=== PATIENT | female | born 1930 | race Caucasian/White ===

== ENCOUNTER 2016-06-18 10:04 | Inpatient (IN) | payer OTHER, BC ==
--- NOTE | 2016-06-18 10:12 | PDOC ---
History of Present Illness <Brandon Mcdaniel - Last Filed: 06/18/16 12:18> - History of Present Illness Initial Comments: 06/18/16 10:25 The patient is a 86 year old female, with a significant past medical history of CHF, hypertension, mitral valve prolapse, hypothyroidism, low kidney function, and hyperlipidemia, who presents to the emergency department with shortness of breath today after being discharged from [facility] 2 days ago. As per ems, the patient was given one sublingual nitroglycerin and another dose in her arm before she perked up. The patients son reports the patient has about 1L of fluid removed from her lung about 2 weeks ago.The patient's son also reports his mother has a shunt in place to which she follows a neurosurgeon for at [place]. She denies chest pain, headache and dizziness. She denies fever, chills, nausea , vomit, diarrhea and constipation. She denies dysuria, frequency, urgency and hematuria. Allergies: penicillin Past surgical history: hysterectomy Social history: denies toxic habits PCP - Dr. Arelis Cisneros ([place]) Manager Grocery: Dr. Cody Reveles ([phone]) <Mayi Tee - Last Filed: 06/18/16 13:44> - General Stated Complaint: PULMONARY EDEMA Past History <Brandon Mcdaniel - Last Filed: 06/18/16 12:18> <Mayi Tee - Last Filed: 06/18/16 13:44> - Past Medical History Allergies/Adverse Reactions: Allergies Allergy/AdvReac Type Severity Reaction Status Date / Time Penicillins Allergy Unknown Verified 06/18/16 10:12 Home Medications: Ambulatory Orders Amlodipine Besylate [Norvasc -] 5 mg PO BID 06/18/16 Aspirin [ASA -] 81 mg PO WEEKLY 06/18/16 Atorvastatin Ca [Lipitor] 10 mg PO HS 06/18/16 Carvedilol [Coreg] 12.5 mg PO BID 06/18/16 Enalapril Maleate [Vasotec] 20 mg PO BID 06/18/16 Hydrochlorothiazide 25 mg PO Q8H 06/18/16 Levothyroxine [Synthroid -] 25 mcg PO DAILY 06/18/16 Sertraline HCl [Zoloft] 50 mg PO HS 06/18/16 Review of Systems - Review of Systems Able to Perform ROS?: Yes Comments:: 06/18/16 10:29 CONSTITUTIONAL: Absent: fever, chills, diaphoresis, generalized weakness, malaise, loss of appetite HEENT: Absent: rhinorrhea, nasal congestion, throat pain, throat swelling, difficulty swallowing, mouth swelling, ear pain, eye pain, visual Changes CARDIOVASCULAR: Absent: chest pain, syncope, palpitations, irregular heart rate, lightheadedness , peripheral edema RESPIRATORY: (+) shortness of breath, dyspnea with exertion. Absent: cough, orthopnea, wheezing, stridor, hemoptysis GASTROINTESTINAL: Absent: abdominal pain, abdominal distension, nausea, vomiting, diarrhea, constipation, melena, hematochezia GENITOURINARY: Absent: dysuria, frequency, urgency, hesitancy, hematuria, flank pain, genital pain MUSCULOSKELETAL: Absent: myalgia, arthralgia, joint swelling SKIN: Absent: rash, itching, pallor HEMATOLOGIC/IMMUNOLOGIC: Absent: easy bleeding, easy bruising, lymphadenopathy, frequent infections ENDOCRINE: Absent: unexplained weight gain, unexplained weight loss, heat intolerance, cold intolerance NEUROLOGIC: Absent: headache, focal weakness or paresthesias, dizziness, unsteady gait, seizure, mental status changes, bladder or bowel incontinence PSYCHIATRIC: Absent: anxiety, depression, suicidal or homicidal ideation, hallucinations. <Mayi Tee - Last Filed: 06/18/16 13:44> *Physical Exam - Vital Signs Last Vital Signs Temp Pulse Resp BP Pulse Ox 97.6 F 74 18 226/108 95 06/18/16 10:08 06/18/16 10:17 06/18/16 10:08 06/18/16 10:08 06/18/16 10:17 - Physical Exam Comments: 06/18/16 10:29 GENERAL: (+) Somnolent. Well developed, well nourished. Awake and alert. HEENT: Normocephalic, atraumatic. PERRLA, EOMI. No conjunctival pallor. Sclera are non- icteric. Moist mucous membranes. Oropharynx is clear. NECK: Supple. Full ROM. No JVD. Carotid pulses 2+ and symmetric, without bruits. No thyromegaly. No lymphadenopathy. CARDIOVASCULAR: Regular rate and rhythm. No murmurs, rubs, or gallops. Distal pulses are 2+ and symmetric. PULMONARY: (+) Respiratory distress. Decreased breath sounds bilaterally. No wheezing, rales or rhonchi. ABDOMINAL: Soft. Non-tender. Non-distended. No rebound or guarding. No organomegaly. Normoactive bowel sounds. MUSCULOSKELETAL Normal range of motion at all joints. No bony deformities or tenderness. No CVA tenderness. EXTREMITIES: No cyanosis. No clubbing. No edema. No calf tenderness. SKIN: Warm and dry. Normal capillary refill. No rashes. No jaundice. NEUROLOGICAL: Alert, awake, appropriate. Cranial nerves 2-12 intact. Normoreflexic in the upper and lower extremities. Normal speech. Toes are down-going bilaterally. <Mayi Tee - Last Filed: 06/18/16 13:44> Heart Score/ECG Review - ECG Intrepretation Comment:: 06/18/16 10:41 ECG was read by Dr. Mcdaniel at 10:15 Impression: Sinus rhythm with 1st degree AV block. Nonspecific Twave abnormality. Vent. Rate: 76 bpm MD Interval: 250 ms QTc: 418 ms <Mayi Tee - Last Filed: 06/18/16 13:44> ED Treatment Course - LABORATORY CBC & Chemistry Diagram: 06/18/16 10:25 06/18/16 10:25 <Brandon Mcdaniel - Last Filed: 06/18/16 12:18> - LABORATORY CBC & Chemistry Diagram: 06/18/16 10:25 06/18/16 10:25 - RADIOLOGY Radiograph Interpretation: 06/18/16 13:42 CXR was read by Dr. Montanez at 12:21 Impression: bilateral pulmonary and pleural changes <Mayi Tee - Last Filed: 06/18/16 13:44> *DC/Admit/Observation/Transfer - Discharge Dispostion Admit: Yes <Brandon Mcdaniel - Last Filed: 06/18/16 12:18> - Attestations Scribe Attestion: 06/18/16 10:31 Documentation prepared by Mayi Tee, acting as medical art therapist for Brandon Mcdaniel MD, <Mayi Tee - Last Filed: 06/18/16 13:44> Diagnosis at time of Disposition: Lingular pneumonia, CHF (congestive heart failure), Acute renal failure - Discharge Dispostion Condition at time of disposition: Fair - Referrals
[2016-06-18 10:21] VITALS: BMI 19.7
[2016-06-18] MEDS ORDERED: AZTREONAM 1 GM in DEXTROSE 5%-WATER - 50 ML IVPB ONE (10:28)
[2016-06-18] MEDS ORDERED: niCARdipine HCL 25 MG/10 ML AMPUL IVPB ONE ×2 (10:33→11:07)
[2016-06-18] MEDS ORDERED: FUROSEMIDE 40 MG/4 ML INJECTABLE VIAL IVPUSH ONE (10:36)
[2016-06-18 10:41] LABS: BASOPHIL 0.5 % (0-2.0); EOSINOPHIL 0.6 % (0-4.5); MCH 27.6 pg (25.7-33.7); MCHC 32.5 g/dl (32.0-36.0); MEAN PLT VOLUME 8.2 fl (7.5-11.1); NEUTROPHILS 84.3 % (42.8-82.8); PLATELET COUNT 218 K/MM3 (134-434); RDW 15.7 % (11.6-15.6); WHITE BLOOD COUNT 8.8 K/mm3 (4.0-10.0)
[2016-06-18] MEDS ORDERED: FUROSEMIDE 40 MG/4 ML INJECTABLE VIAL ONE (11:08)
[2016-06-18 11:09] LABS: BILIRUBIN,TOTAL 0.5 mg/dL (0.2-1.0); CALCIUM 8.9 mg/dL (8.5-10.1); CREATININE 5.6 mg/dL (0.55-1.02); TOT PROT 6.9 g/dl (6.4-8.2)
[2016-06-18 11:12] LABS: TROPONIN I 0.07 ng/ml (0.00-0.05)
[2016-06-18] MEDS ORDERED: SODIUM POLYSTYRENE SULFONATE 15 GM/60 ML BOTTLE PO ONE (11:37)
[2016-06-18] MEDS ORDERED: NICARDIPINE 25 MG in DEXTROSE 5%-WATER - 240 ML IVPB SCH (11:45)
--- NOTE | 2016-06-18 12:50 | HP ---
CHIEF COMPLAINT: Shortness of breath PCP: Dr. Arelis Cisneros ([place]) Track Repairer: Dr. 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 She initially presented to [facility] for lower extremity edema, L>R, and at that time was noted to have a BP of 220 systolic. Records from that stay were obtained and reviewed and were notable for: -Duplex LE u/s: no DVT -BNP 1069 -CXR: Moderate left and right pleural effusions -Underwent left thoracentesis; 1L of fluid aspirated -Echo: Normal LV size and function; concentric left ventricular hypertrophy, E/ A reversal consisted with decreased LV diastolic compliance. -Creatinine went from 2.6 on presentation to 5.2; this was attributed to over- diuresis The patient returns to the ED today complaining of shortness of breath at rest and cough productive of scant clear sputum. She was given SL ntg by EMS prior to arrival in the ED and states that this improved her shortness of breath. She denies chest pain, fevers/chills, or any other symptoms. ER course was notable for: (1) EKG: (2) CXR: Cardiomegaly, pulmonary vascular congestion, bilateral pleural effusions (3) BUN/Cr 127/5.6 (4) K 5.4, given kayexelate (5) Bicarb 14 (6) BNP 15,546 (7) Troponin 0.07 Recent Travel: None Social History: Smoking: Never smoker Alcohol: None Family History: No family history of kidney disease Allergies Penicillins Allergy (Unknown, Verified 06/18/16 10:12) HOME MEDICATIONS: Medication Instructions Recorded Amlodipine Besylate [Norvasc -] 5 mg PO BID 06/18/16 Aspirin [ASA -] 81 mg PO WEEKLY 06/18/16 Atorvastatin Ca [Lipitor] 10 mg PO HS 06/18/16 Carvedilol [Coreg] 12.5 mg PO BID 06/18/16 Enalapril Maleate [Vasotec] 20 mg PO BID 06/18/16 Hydrochlorothiazide 25 mg PO Q8H 06/18/16 Levothyroxine [Synthroid -] 25 mcg PO DAILY 06/18/16 Sertraline HCl [Zoloft] 50 mg PO HS 06/18/16 REVIEW OF SYSTEMS CONSTITUTIONAL: Absent: fever, chills, diaphoresis, generalized weakness, malaise, loss of appetite, weight change HEENT: Nosebleeds, none at present. Absent: rhinorrhea, nasal congestion, throat pain, throat swelling, difficulty swallowing, mouth swelling, ear pain, eye pain, visual changes CARDIOVASCULAR: Lower extremity edema, R>L for several weeks Absent: chest pain, syncope, palpitations, irregular heart rate, lightheadedness RESPIRATORY: See HPI GASTROINTESTINAL: Absent: abdominal pain, abdominal distension, nausea, vomiting, diarrhea, constipation, melena, hematochezia GENITOURINARY: Absent: dysuria, frequency, urgency, hesitancy, hematuria, flank pain, genital pain MUSCULOSKELETAL: Absent: myalgia, arthralgia, joint swelling, back pain, neck pain SKIN: Absent: rash, itching, pallor HEMATOLOGIC/IMMUNOLOGIC: Absent: easy bleeding, easy bruising, lymphadenopathy, frequent infections ENDOCRINE: Absent: unexplained weight gain, unexplained weight loss, heat intolerance, cold intolerance NEUROLOGIC: Absent: headache, focal weakness or paresthesias, dizziness, unsteady gait, seizure, mental status changes, bladder or bowel incontinence PSYCHIATRIC: Absent: anxiety, depression, suicidal or homicidal ideation, hallucinations. PHYSICAL EXAMINATION GENERAL: Awake, alert, and fully oriented, in no acute distress. HEAD: Normal with no signs of trauma. EYES: Pupils equal, round and reactive to light, extraocular movements intact, sclera anicteric, conjunctiva clear. No lid lag. EARS, NOSE, THROAT: Ears normal, nares patent, oropharynx clear without exudates. Moist mucous membranes. NECK: Normal range of motion, supple without lymphadenopathy, JVD, or masses. LUNGS: Rales bilaterally at bases. Left thoracentesis site dressing clean and dry. HEART: Regular rate and rhythm, normal S1 and S2, soft systolic murmur, no rub or gallop. ABDOMEN: Soft, nontender, not distended, normoactive bowel sounds, no guarding, no rebound, no masses. No hepatomegaly or splenomegaly. MUSCULOSKELETAL: Normal range of motion at all joints. No bony deformities or tenderness. No CVA tenderness. UPPER EXTREMITIES: 2+ pulses, warm, well-perfused. No cyanosis. No clubbing. Cap refill <2 seconds. No peripheral edema. LOWER EXTREMITIES: 2+ pulses, warm, well-perfused. No calf tenderness. 1+ pitting LE edema bilaterally, left calf tenderness and mild swelling. NEUROLOGICAL: Cranial nerves II-XII intact. Normal speech. Normal gait. PSYCHIATRIC: Cooperative. Good eye contact. Appropriate mood and affect. SKIN: Warm, dry, normal turgor, no rashes or lesions noted. ASSESSMENT/PLAN: 86 year old female with shortness of breath, likely secondary to fluid overload from renal failure and diastolic CHF. Problem List - Problem (1) Shortness of breath Assessment/Plan: -Likely secondary to ARF/fluid overload + CHF -Supplemental O2 as needed -Monitor on telemetry -Nephrology consultation, consideration of HD for intractable fluid overload -Was given Aztreonam in the ED for suspected PNA; CXR reviewed and no infiltrate appreciated, do not clinically suspect PNA, observe off abx for now -Lasix 40mg IVP x 1 given in ED -Trend troponins -Serial troponins to DONITA (first troponin slightly elevated at 0.07, however significance unclear in the setting of renal failure) Code(s): R06.02 - SHORTNESS OF BREATH (2) Acute renal failure Assessment/Plan: -As above -Hold Lisinopril for now Code(s): N17.9 - ACUTE KIDNEY FAILURE, UNSPECIFIED (3) CHF (congestive heart failure) Assessment/Plan: -As above Code(s): I50.9 - HEART FAILURE, UNSPECIFIED (4) Hypertension Assessment/Plan: -Above goal -Resume home meds (amlodipine, hydralazine) -Was briefly on nicardipine gtt in ED, will dc this Code(s): I10 - ESSENTIAL (PRIMARY) HYPERTENSION (5) Hypothyroidism Assessment/Plan: -COntinue Synthroid Code(s): E03.9 - HYPOTHYROIDISM, UNSPECIFIED (6) Low bicarbonate level Assessment/Plan: -May need repletion; await nephrology recommendations Code(s): E87.8 - OTH DISORDERS OF ELECTROLYTE AND FLUID BALANCE, NEC (7) DVT prophylaxis Assessment/Plan: -Heparin 5000 units sq bid -Ambulation Code(s): JJA4252 - Visit type - Emergency Visit Emergency Visit: Yes ED Registration Date: 06/18/16 Care time: The patient presented to the Emergency Department on the above date and was hospitalized for further evaluation of their emergent condition. - New Patient This patient is new to me today: Yes Date on this admission: 06/18/16 - Critical Care Critical Care patient: No
[2016-06-18] MEDS ORDERED: ASPIRIN 81 MG CHEWABLE TABLETS PO SCH (13:00)
[2016-06-18] MEDS ORDERED: HYDROCHLOROTHIAZIDE 25 MG TABLET (FP) PO SCH (13:00)
[2016-06-18] MEDS ORDERED: ONDANSETRON 4 MG/2 ML VIAL IVPB PRN (14:20)
[2016-06-18] MEDS ORDERED: ACETAMINOPHEN 325 MG TABLET (FP) PO PRN (14:20)
--- NOTE | 2016-06-18 15:31 | CONSULT ---
Consult Consult Specialty:: Nephrology Reason for Consultation:: CKD - History of Present Illness Chief Complaint: shortness of breath History of Present Illness: Pt is an 86 year old female with pmhx of CKD, HTN, pleural effusion, diastolic CHF, and MVP who presents to the ER with shortness of breath this morning. She was discharged from [facility] yesterday. She initially was hospitalized there for fluid overload and was treated with diuretics. She presents here today with shortness of breath. She did have substernal chest pain. She described it as pressure like. She felt it improved with nitro. She also felt that the breathing also improved with nitro. She was found to have elevated creatinine and I was called to evaluate her. I called her pediatric speech language pathologist who was seeing her in the hospital. She has a baseline fur farmer of about 3 and she was discharged from the hospital yesterday with creatinine of over 5. He says the working diagnosis of SARAI at the time was over-diuresis. She also had over 1 liter of fluid removed from her left lung. As far as potassium, pt has a baseline potassium of 5.5 to 6. She currently feels better. She is laying in bed comfortably and able to give history. She has history of uncontrolled hypertension. - History Source History Provided By: Patient, Medical Record - Past Medical History Cardio/Vascular: Yes: CHF, HTN, Hyperlipdemia, Other (MVP) Renal/: Yes: Renal Inusuff Endocrine: Yes: Hypothyroidism - Alcohol/Substance Use Hx Alcohol Use: No - Smoking History Smoking history: Former smoker Have you smoked in the past 12 months: No If you are a former smoker, when did you quit?: 1950 Home Medications - Allergies Allergies/Adverse Reactions: Allergies Allergy/AdvReac Type Severity Reaction Status Date / Time Penicillins Allergy Unknown Verified 06/18/16 10:12 - Home Medications Home Medications: Ambulatory Orders Amlodipine Besylate [Norvasc -] 5 mg PO BID 06/18/16 Aspirin [ASA -] 81 mg PO WEEKLY 06/18/16 Atorvastatin Ca [Lipitor] 10 mg PO HS 06/18/16 Carvedilol [Coreg] 12.5 mg PO BID 06/18/16 Enalapril Maleate [Vasotec] 20 mg PO BID 06/18/16 Hydrochlorothiazide 25 mg PO Q8H 06/18/16 Levothyroxine [Synthroid -] 25 mcg PO DAILY 06/18/16 Sertraline HCl [Zoloft] 50 mg PO HS 06/18/16 Family Disease History - Family Disease History Family History: Denies Review of Systems - Review of Systems Constitutional: reports: Malaise Eyes: reports: No Symptoms HENT: reports: No Symptoms Neck: reports: No Symptoms Cardiovascular: reports: Chest Pain, Shortness of Breath Respiratory: reports: SOB Gastrointestinal: reports: No Symptoms Genitourinary: reports: No Symptoms Musculoskeletal: reports: No Symptoms Integumentary: reports: No Symptoms Neurological: reports: No Symptoms Endocrine: reports: No Symptoms Hematology/Lymphatic: reports: No Symptoms Psychiatric: reports: No Symptoms Physical Exam Vital Signs: Vital Signs Temperature 97.6 F 06/18/16 10:08 Pulse Rate 74 06/18/16 14:05 Respiratory Rate 20 06/18/16 14:05 Blood Pressure 166/70 06/18/16 14:05 O2 Sat by Pulse Oximetry (%) 99 06/18/16 14:05 Constitutional: Yes: Calm Eyes: Yes: Conjunctiva Clear HENT: Yes: Atraumatic Cardiovascular: Yes: Murmur, S1, S2 Respiratory: Yes: CTA Bilaterally, On Nasal O2 Gastrointestinal: Yes: Soft Renal/: Yes: WNL Musculoskeletal: Yes: WNL Edema: Yes Edema: LLE: Trace, RLE: Trace Neurological: Yes: Oriented Psychiatric: Yes: Oriented Labs: Laboratory Tests 06/18/16 06/18/16 06/18/16 10:25 10:25 10:25 WBC 8.8 Hgb 10.8 Plt Count 218 Sodium 138 Potassium 5.4 H Chloride 110 H Carbon Dioxide 14 L Anion Gap 14 BUN 127 H* Creatinine 5.6 H Creat Clearance w eGFR 7.20 Random Glucose 118 H Lactic Acid 0.678 Calcium 8.9 AST 27 ALT 47 Alkaline Phosphatase 77 Creatine Kinase 87 Troponin I 0.07 H B-Natriuretic Peptide 14731.96 H Total Protein 6.9 Albumin 3.0 L Imaging - Results Chest X-ray: Report Reviewed Problem List - Problems (1) Acute renal failure Code(s): N17.9 - ACUTE KIDNEY FAILURE, UNSPECIFIED (2) CHF (congestive heart failure) Code(s): I50.9 - HEART FAILURE, UNSPECIFIED (3) Hypertension Code(s): I10 - ESSENTIAL (PRIMARY) HYPERTENSION (4) Hypothyroidism Code(s): E03.9 - HYPOTHYROIDISM, UNSPECIFIED (5) Shortness of breath Code(s): R06.02 - SHORTNESS OF BREATH (6) Chronic kidney disease (CKD) Code(s): N18.9 - CHRONIC KIDNEY DISEASE, UNSPECIFIED Assessment/Plan Current Medications Generic Name Dose Route Start Last Admin Trade Name Freq PRN Reason Stop Dose Admin Acetaminophen 650 mg 06/18/16 14:20 Tylenol - PO Q6H PRN FEVER OR PAIN Amlodipine Besylate 5 mg 06/18/16 22:00 Norvasc - PO BID SHERITA Aspirin 81 mg 06/18/16 13:00 Asa - PO WEEKLY SHERITA Atorvastatin Calcium 10 mg 06/18/16 22:00 Lipitor - PO HS SHERITA Carvedilol 12.5 mg 06/18/16 22:00 Coreg - PO BID SHERITA Docusate Sodium 100 mg 06/18/16 22:00 Colace - PO TID SHERITA Heparin Sodium (Porcine) 5,000 unit 06/18/16 22:00 Heparin - SQ BID SHERITA Hydralazine HCl 25 mg 06/18/16 22:00 Apresoline - PO TID SHERITA Levothyroxine Sodium 25 mcg 06/19/16 10:00 Synthroid - PO DAILY SHERITA Ondansetron HCl 4 mg 06/18/16 14:20 Zofran Injection IVPB Q6H PRN NAUSEA Sertraline HCl 50 mg 06/18/16 22:00 Zoloft - PO HS SHERITA Impression 1. CKD 2. SARAI 3. HTN 4. CHF 5. pleural effusion 6. hypothyroidism 7. hyperlipidemia 8. MVP Plan - can increase hydralazine from 25 mg q 8 hrs to 50 mg if bp is persistently elevated - hold enalepril (was on 20 mg BID) for now as potassium is elevated - cont coreg 12.5 q 12 hrs - cont with amlodipine 5 mg bid - low potassium diet - will add PO sodium bicarb - spoke to nephrology and working diagnosis for SARAI was overdiuresis - will monitor renal function closely - pt has a baseline fur farmer of about 5 - discussed with ER team - will check urine studies - will order renal ultrasound to r/o obstruction Dr Hernandez
[2016-06-18] MEDS ORDERED: SODIUM POLYSTYRENE SULFONATE 15 GM/60 ML BOTTLE ONE (15:44)
[2016-06-18] MEDS ORDERED: HYDROCHLOROTHIAZIDE 25 MG TABLET (FP) ONE (15:44)
[2016-06-18 20:30] LABS: TROPONIN I 0.13 ng/ml (0.00-0.05)
[2016-06-18] MEDS: SERTRALINE HCL 50 MG TABLET (FP) PO SCH (20:43)
[2016-06-18] MEDS: DOCUSATE SODIUM 100 MG CAPSULE (FP) PO SCH (20:43)
[2016-06-18] MEDS: ATORVASTATIN CA 10 MG TABLET (FP) PO SCH (20:43)
[2016-06-18] MEDS: amLODIPine BESYLATE 5 MG TABLET (FP) PO SCH (20:44)
[2016-06-18] MEDS: CARVEDILOL 12.5 MG TABLET (FP) PO SCH (20:44)
[2016-06-18] MEDS: hydrALAZINE HCL 25 MG TABLET (FP) PO SCH (20:44)
[2016-06-18] MEDS: HEPARIN NA (PORCINE) 5,000 UNITS/ML 1ML VIAL SQ SCH (22:00)
[2016-06-18] MEDS: SODIUM BICARBONATE 650 MG TABLET PO SCH (22:00)
[2016-06-19] MEDS: DOCUSATE SODIUM 100 MG CAPSULE (FP) PO SCH ×4 (06:41→21:38)
[2016-06-19] MEDS: SODIUM BICARBONATE 650 MG TABLET PO SCH ×4 (06:42→21:38)
[2016-06-19] MEDS: hydrALAZINE HCL 25 MG TABLET (FP) PO SCH ×4 (06:42→21:38)
[2016-06-19] MEDS: LEVOTHYROXINE NA 25 MCG TABLET (FP) PO SCH (06:43)
[2016-06-19] MEDS: CARVEDILOL 12.5 MG TABLET (FP) PO SCH ×3 (06:49→21:37)
[2016-06-19] MEDS: ATORVASTATIN CA 10 MG TABLET (FP) PO SCH ×2 (06:50→21:38)
[2016-06-19] MEDS: SERTRALINE HCL 50 MG TABLET (FP) PO SCH ×2 (06:51→21:38)
[2016-06-19] MEDS: amLODIPine BESYLATE 5 MG TABLET (FP) PO SCH ×3 (06:51→21:38)
[2016-06-19 08:12] LABS: BASOPHIL 0.5 % (0-2.0); EOSINOPHIL 0.6 % (0-4.5); MCH 27.7 pg (25.7-33.7); MCHC 32.7 g/dl (32.0-36.0); MEAN CELL VOLUME 84.6 fl (80-96); MEAN PLT VOLUME 8.8 fl (7.5-11.1); PLATELET COUNT 206 K/MM3 (134-434); RDW 15.1 % (11.6-15.6)
[2016-06-19 09:06] LABS: URINE APPEARANCE CLEAR; URINE BILIRUBIN NEGATIVE (NEGATIVE); URINE BLOOD NEGATIVE (NEGATIVE); URINE COLOR STRAW; URINE GLUCOSE (UA) NEGATIVE (NEGATIVE); URINE KETONE NEGATIVE (NEGATIVE); URINE LEUK ESTERASE NEGATIVE (NEGATIVE); URINE NITRITE NEGATIVE (NEGATIVE); URINE PROTEIN NEGATIVE (NEGATIVE); URINE UROBILINOGEN NEGATIVE E.U./dl (0.2-1.0)
[2016-06-19 09:19] LABS: ALBUMIN 2.8 g/dl (3.4-5.0); CALCIUM 8.8 mg/dL (8.5-10.1); CREATININE 4.1 mg/dL (0.55-1.02); MAGNESIUM 2.3 mg/dL (1.8-2.4); PHOSPHOROUS 5.8 mg/dL (2.5-4.9)
[2016-06-19 09:21] LABS: BILIRUBIN,TOTAL 0.7 mg/dL (0.2-1.0); TOT PROT 6.5 g/dl (6.4-8.2)
[2016-06-19 09:33] LABS: URINE CREATININE 68.8 mg/dL
[2016-06-19] MEDS: ASPIRIN 81 MG CHEWABLE TABLETS PO SCH (09:58)
[2016-06-19] MEDS: HEPARIN NA (PORCINE) 5,000 UNITS/ML 1ML VIAL SQ SCH ×2 (09:58→21:38)
--- NOTE | 2016-06-19 12:35 | EKG ---
Test Reason : Blood Pressure : / mmHG Vent. Rate : 076 BPM Atrial Rate : 076 BPM P-R Int : 250 ms QRS Dur : 096 ms QT Int : 372 ms P-R-T Axes : 066 009 094 degrees QTc Int : 418 ms SINUS RHYTHM WITH 1ST DEGREE A-V BLOCK NONSPECIFIC T WAVE ABNORMALITY ABNORMAL ECG NO PREVIOUS ECGS AVAILABLE Confirmed by HEATHER DIAZ MD ([id number]) on 06/19/2016 12:34:26 PM Referred By: Overread By: HEATHER DIAZ MD
--- NOTE | 2016-06-19 13:40 | PN ---
Physical Exam: SUBJECTIVE: Patient seen and examined. She has no complaints. She says she is breathing more comfortably today. She denies chest pain. OBJECTIVE: Vital Signs Period Temp Pulse Resp BP Sys/Alan Pulse Ox Last 24 Hr 97.8 F-98.4 F 70-84 18-20 160-227/70-100 94-99 GENERAL: The patient is awake, alert, and fully oriented, in no acute distress. HEAD: Normal with no signs of trauma. NECK: Full range of motion, supple. LUNGS: Breath sounds equal. Few crackles at bases. HEART: Regular rate and rhythm, S1, S2 without murmur, rub or gallop. ABDOMEN: Soft, nontender, nondistended, normoactive bowel sounds, no guarding, no rebound, no hepatosplenomegaly, no masses. EXTREMITIES: 2+ pulses, warm, well-perfused, trace edema. Laboratory Results - last 24 hr 06/18/16 06/19/16 06/19/16 19:30 05:45 05:45 WBC 6.0 D RBC 3.51 L Hgb 9.7 L D Hct 29.6 L MCV 84.6 MCHC 32.7 RDW 15.1 Plt Count 206 MPV 8.8 Neutrophils % 72.0 Lymphocytes % 15.9 D Monocytes % 11.0 H D Eosinophils % 0.6 Basophils % 0.5 Sodium 141 Potassium 4.1 D Chloride 111 H Carbon Dioxide 17 L D Anion Gap 13 BUN 119 H* Creatinine 4.1 H D Creat Clearance w eGFR 10.32 Random Glucose 91 D Calcium 8.8 Phosphorus 5.8 H Magnesium 2.3 Total Bilirubin 0.7 D AST 18 D ALT 38 Alkaline Phosphatase 66 Creatine Kinase 142 Troponin I 0.13 H Total Protein 6.5 Albumin 2.8 L Urine Color Urine Appearance Urine pH Ur Specific [place] Urine Protein Urine Glucose (UA) Urine Ketones Urine Blood Urine Nitrite Urine Bilirubin Urine Urobilinogen Ur Leukocyte Esterase U Random Total Protein Ur Random Sodium Ur Random Potassium Ur Random Chloride Ur Random Urea Nitrogn Urine Creatinine 06/19/16 06/19/16 06/19/16 07:00 07:00 07:00 WBC RBC Hgb Hct MCV MCHC RDW Plt Count MPV Neutrophils % Lymphocytes % Monocytes % Eosinophils % Basophils % Sodium Potassium Chloride Carbon Dioxide Anion Gap BUN Creatinine Creat Clearance w eGFR Random Glucose Calcium Phosphorus Magnesium Total Bilirubin AST ALT Alkaline Phosphatase Creatine Kinase Troponin I Total Protein Albumin Urine Color Straw Urine Appearance Clear Urine pH 5.0 Ur Specific [place] 1.012 Urine Protein Negative Urine Glucose (UA) Negative Urine Ketones Negative Urine Blood Negative Urine Nitrite Negative Urine Bilirubin Negative Urine Urobilinogen Negative Ur Leukocyte Esterase Negative U Random Total Protein 46 H Ur Random Sodium 74 Ur Random Potassium 16.3 Ur Random Chloride 64 Ur Random Urea Nitrogn 685 Urine Creatinine 68.8 Cancelled Active Medications Generic Name Dose Route Start Last Admin Trade Name Freq PRN Reason Stop Dose Admin Acetaminophen 650 mg 06/18/16 14:20 Tylenol - PO Q6H PRN FEVER OR PAIN Amlodipine Besylate 5 mg 06/18/16 22:00 06/19/16 09:57 Norvasc - PO 5 mg BID SHERITA Administration Aspirin 81 mg 06/19/16 10:00 06/19/16 09:58 Asa - PO 81 mg DAILY SHERITA Administration Atorvastatin Calcium 10 mg 06/18/16 22:00 06/19/16 06:50 Lipitor - PO Not Given HS [facility] Carvedilol 12.5 mg 06/18/16 22:00 06/19/16 09:58 Coreg - PO 12.5 mg BID SHERITA Administration Docusate Sodium 100 mg 06/18/16 22:00 06/19/16 06:42 Colace - PO 100 mg TID SHERITA Administration Heparin Sodium (Porcine) 5,000 unit 06/18/16 22:00 06/19/16 09:58 Heparin - SQ 5,000 unit BID SHERITA Administration Hydralazine HCl 25 mg 06/18/16 22:00 06/19/16 06:49 Apresoline - PO Not Given TID SHERITA Levothyroxine Sodium 25 mcg 06/19/16 07:00 06/19/16 06:43 Synthroid - PO 25 mcg DAILY@0700 SHERITA Administration Ondansetron HCl 4 mg 06/18/16 14:20 Zofran Injection IVPB Q6H PRN NAUSEA Sertraline HCl 50 mg 06/18/16 22:00 06/19/16 06:51 Zoloft - PO Not Given HS SHERITA Sodium Bicarbonate 650 mg 06/18/16 15:45 06/19/16 06:42 Sodium Bicarbonate - PO 650 mg TID SHERITA Administration ASSESSMENT/PLAN: This is an 86-year-old woman with a history of dementia, HTN, MVP, hyperlipidemia, hypothyroidism, diastolic CHF, 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 1. Acute diastolic heart failure secondary to fluid overload - s/p Lasix IV x 1 in ER - No evidence of pneumonia 2. Acute kidney injury on stage 4 CKD - Vasotec held - Renal US shows atrophic and echogenic kidneys - BUN, creatinine improving 3. Chronic diastolic heart failure - Continue Coreg, Norvasc 4. Hypertension - Continue Norvasc, Hydralazine, Coreg - Vasotec held secondary to SARAI with hyperkalemia 5. Hypothyroidism - Continue Synthroid 6. Hyperlipidemia - Continue Lipitor Visit type - Emergency Visit Emergency Visit: Yes ED Registration Date: 06/18/16 Care time: The patient presented to the Emergency Department on the above date and was hospitalized for further evaluation of their emergent condition. - New Patient This patient is new to me today: Yes Date on this admission: 06/19/16 - Critical Care Critical Care patient: No - Discharge Referral Referred to [facility] Med [facility] No
--- NOTE | 2016-06-19 18:52 | PN ---
Progress Note, Physician History of Present Illness: Pt seen and examined at bedside. She is awake and alert. She looks more comfortable than she did yesterday. - Current Medication List Current Medications: Active Medications Acetaminophen (Tylenol -) 650 mg PO Q6H PRN PRN Reason: FEVER OR PAIN Amlodipine Besylate (Norvasc -) 5 mg PO BID [facility] Last Admin: 06/19/16 09:57 Dose: 5 mg Aspirin (Asa -) 81 mg PO DAILY [facility] Last Admin: 06/19/16 09:58 Dose: 81 mg Atorvastatin Calcium (Lipitor -) 10 mg PO [facility] Last Admin: 06/19/16 06:50 Dose: Not Given Carvedilol (Coreg -) 12.5 mg PO BID [facility] Last Admin: 06/19/16 09:58 Dose: 12.5 mg Docusate Sodium (Colace -) 100 mg PO TID [facility] Last Admin: 06/19/16 15:31 Dose: Not Given Heparin Sodium (Porcine) (Heparin -) 5,000 unit SQ BID [facility] Last Admin: 06/19/16 09:58 Dose: 5,000 unit Hydralazine HCl (Apresoline -) 25 mg PO TID [facility] Last Admin: 06/19/16 15:29 Dose: 25 mg Levothyroxine Sodium (Synthroid -) 25 mcg PO DAILY@0700 [facility] Last Admin: 06/19/16 06:43 Dose: 25 mcg Ondansetron HCl (Zofran Injection) 4 mg IVPB Q6H PRN PRN Reason: NAUSEA Sertraline HCl (Zoloft -) 50 mg PO [facility] Last Admin: 06/19/16 06:51 Dose: Not Given Sodium Bicarbonate (Sodium Bicarbonate -) 650 mg PO TID [facility] Last Admin: 06/19/16 15:33 Dose: 650 mg - Objective Vital Signs: Vital Signs Temperature 97.5 F L 06/19/16 15:00 Pulse Rate 83 06/19/16 15:00 Respiratory Rate 18 06/19/16 14:00 Blood Pressure 163/85 06/19/16 15:00 O2 Sat by Pulse Oximetry (%) 94 L 06/19/16 08:33 Constitutional: Yes: Calm Eyes: Yes: Conjunctiva Clear HENT: Yes: Atraumatic Neck: Yes: Supple Cardiovascular: Yes: S1, S2 Respiratory: Yes: CTA Bilaterally Gastrointestinal: Yes: Soft Genitourinary: Yes: WNL Musculoskeletal: Yes: WNL Edema: No Neurological: Yes: Oriented Psychiatric: Yes: Oriented Labs: CBC, BMP 06/19/16 05:45 06/19/16 05:45 Problem List - Problems (1) Acute renal failure Code(s): N17.9 - ACUTE KIDNEY FAILURE, UNSPECIFIED (2) CHF (congestive heart failure) Code(s): I50.9 - HEART FAILURE, UNSPECIFIED (3) Hypertension Code(s): I10 - ESSENTIAL (PRIMARY) HYPERTENSION (4) Hypothyroidism Code(s): E03.9 - HYPOTHYROIDISM, UNSPECIFIED (5) Shortness of breath Code(s): R06.02 - SHORTNESS OF BREATH (6) Chronic kidney disease (CKD) Code(s): N18.9 - CHRONIC KIDNEY DISEASE, UNSPECIFIED Assessment/Plan Current Medications Generic Name Dose Route Start Last Admin Trade Name Freq PRN Reason Stop Dose Admin Acetaminophen 650 mg 06/18/16 14:20 Tylenol - PO Q6H PRN FEVER OR PAIN Amlodipine Besylate 5 mg 06/18/16 22:00 06/19/16 09:57 Norvasc - PO 5 mg BID [facility] Administration Aspirin 81 mg 06/19/16 10:00 06/19/16 09:58 Asa - PO 81 mg DAILY [facility] Administration Atorvastatin Calcium 10 mg 06/18/16 22:00 06/19/16 06:50 Lipitor - PO Not Given HS [facility] Carvedilol 12.5 mg 06/18/16 22:00 06/19/16 09:58 Coreg - PO 12.5 mg BID [facility] Administration Docusate Sodium 100 mg 06/18/16 22:00 06/19/16 15:31 Colace - PO Not Given TID [facility] Heparin Sodium (Porcine) 5,000 unit 06/18/16 22:00 06/19/16 09:58 Heparin - SQ 5,000 unit BID [facility] Administration Hydralazine HCl 25 mg 06/18/16 22:00 06/19/16 15:29 Apresoline - PO 25 mg TID [facility] Administration Levothyroxine Sodium 25 mcg 06/19/16 07:00 06/19/16 06:43 Synthroid - PO 25 mcg DAILY@0700 [facility] Administration Ondansetron HCl 4 mg 06/18/16 14:20 Zofran Injection IVPB Q6H PRN NAUSEA Sertraline HCl 50 mg 06/18/16 22:00 06/19/16 06:51 Zoloft - PO Not Given HS [facility] Sodium Bicarbonate 650 mg 06/18/16 15:45 06/19/16 15:33 Sodium Bicarbonate - PO 650 mg TID [facility] Administration Impression 1. CKD 2. SARAI 3. HTN 4. CHF 5. pleural effusion 6. hypothyroidism 7. hyperlipidemia 8. MVP Plan - renal function is improving - fluids on hold today - cardiology consult - repeat labs in am - will likely restart diuretics in am - renal ultrasound reviewed Dr Hernandez
[2016-06-20] MEDS: hydrALAZINE HCL 25 MG TABLET (FP) PO SCH (06:52)
[2016-06-20] MEDS: DOCUSATE SODIUM 100 MG CAPSULE (FP) PO SCH ×3 (06:52→22:03)
[2016-06-20] MEDS: SODIUM BICARBONATE 650 MG TABLET PO SCH ×3 (06:52→22:03)
[2016-06-20] MEDS: LEVOTHYROXINE NA 25 MCG TABLET (FP) PO SCH (06:52)
[2016-06-20 07:44] LABS: MCH 27.6 pg (25.7-33.7); MCHC 32.7 g/dl (32.0-36.0); MEAN CELL VOLUME 84.3 fl (80-96); MEAN PLT VOLUME 9.1 fl (7.5-11.1); PLATELET COUNT 208 K/MM3 (134-434); RDW 15.3 % (11.6-15.6); WHITE BLOOD COUNT 6.3 K/mm3 (4.0-10.0)
[2016-06-20 08:11] LABS: CALCIUM 8.3 mg/dL (8.5-10.1); CREATININE 4.1 mg/dL (0.55-1.02); MAGNESIUM 2.2 mg/dL (1.8-2.4)
[2016-06-20 09:05] LABS: TROPONIN I 0.06 ng/ml (0.00-0.05)
--- NOTE | 2016-06-20 09:19 | PN ---
Physical Exam: SUBJECTIVE: Patient seen and examined, Pt is an 86 year old female with pmhx of CKD, HTN, pleural effusion, diastolic CHF, and MVP who presents to the ER with shortness of breath this morning. She was discharged from [facility] yesterday. She initially was hospitalized there for fluid overload and was treated with diuretics. She presents here today with shortness of breath. She did have substernal chest pain. She described it as pressure like. She felt it improved with nitro. She also felt that the breathing also improved with nitro. 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 She also had over 1 liter of fluid removed from her left lung. Patient feels better, denies chest pain, sob, lightheadedness, dizziness. States that she feels better - History Source OBJECTIVE: Vital Signs Period Temp Pulse Resp BP Sys/Alan Pulse Ox Last 24 Hr 97.5 F-98.5 F 62-83 16-18 154-196/54-104 95-97 GENERAL: The patient is awake, alert, and fully oriented, in no acute distress. HEAD: Normal with no signs of trauma. NECK: Full range of motion, supple. LUNGS: Breath sounds equal. no rale, no crackles, no wheeze HEART: Regular rate and rhythm, S1, S2 without murmur, rub or gallop. ABDOMEN: Soft, nontender, nondistended, normoactive bowel sounds, no guarding, no rebound, no hepatosplenomegaly, no masses. EXTREMITIES: 2+ pulses, warm, well-perfused, no pedal edema Laboratory Results - last 24 hr 06/19/16 06/19/16 06/19/16 05:45 07:00 07:00 WBC RBC Hgb Hct MCV MCHC RDW Plt Count MPV Sodium 141 Potassium 4.1 D Chloride 111 H Carbon Dioxide 17 L D Anion Gap 13 BUN 119 H* Creatinine 4.1 H D Creat Clearance w eGFR 10.32 Random Glucose 91 D Calcium 8.8 Phosphorus 5.8 H Magnesium 2.3 Total Bilirubin 0.7 D AST 18 D ALT 38 Alkaline Phosphatase 66 Troponin I Total Protein 6.5 Albumin 2.8 L Urine Color Straw Urine Appearance Clear Urine pH 5.0 Ur Specific Tuttle 1.012 Urine Protein Negative Urine Glucose (UA) Negative Urine Ketones Negative Urine Blood Negative Urine Nitrite Negative Urine Bilirubin Negative Urine Urobilinogen Negative Ur Leukocyte Esterase Negative U Random Total Protein 46 H Ur Random Sodium 74 Ur Random Potassium 16.3 Ur Random Chloride 64 Ur Random Urea Nitrogn 685 Urine Creatinine 68.8 06/20/16 06/20/16 06/20/16 05:50 05:50 08:43 WBC 6.3 RBC 3.44 L Hgb 9.5 L Hct 29.0 L MCV 84.3 MCHC 32.7 RDW 15.3 Plt Count 208 MPV 9.1 Sodium 141 Potassium 4.2 Chloride 110 H Carbon Dioxide 20 L Anion Gap 11 BUN 117 H* Creatinine 4.1 H Creat Clearance w eGFR Random Glucose 87 Calcium 8.3 L Phosphorus Magnesium 2.2 Total Bilirubin AST ALT Alkaline Phosphatase Troponin I 0.06 H Cancelled Total Protein Albumin Urine Color Urine Appearance Urine pH Ur Specific Tuttle Urine Protein Urine Glucose (UA) Urine Ketones Urine Blood Urine Nitrite Urine Bilirubin Urine Urobilinogen Ur Leukocyte Esterase U Random Total Protein Ur Random Sodium Ur Random Potassium Ur Random Chloride Ur Random Urea Nitrogn Urine Creatinine Active Medications Generic Name Dose Route Start Last Admin Trade Name Freq PRN Reason Stop Dose Admin Acetaminophen 650 mg 06/18/16 14:20 Tylenol - PO Q6H PRN FEVER OR PAIN Amlodipine Besylate 5 mg 06/18/16 22:00 06/19/16 21:38 Norvasc - PO 5 mg BID [facility] Administration Aspirin 81 mg 06/19/16 10:00 06/19/16 09:58 Asa - PO 81 mg DAILY [facility] Administration Atorvastatin Calcium 10 mg 06/18/16 22:00 06/19/16 21:38 Lipitor - PO 10 mg HS [facility] Administration Carvedilol 12.5 mg 06/18/16 22:00 06/19/16 21:37 Coreg - PO 12.5 mg BID [facility] Administration Docusate Sodium 100 mg 06/18/16 22:00 06/20/16 06:52 Colace - PO 100 mg TID [facility] Administration Heparin Sodium (Porcine) 5,000 unit 06/18/16 22:00 06/19/16 21:38 Heparin - SQ 5,000 unit BID [facility] Administration Hydralazine HCl 25 mg 06/18/16 22:00 06/20/16 06:52 Apresoline - PO 25 mg TID [facility] Administration Levothyroxine Sodium 25 mcg 06/19/16 07:00 06/20/16 06:52 Synthroid - PO 25 mcg DAILY@0700 [facility] Administration Ondansetron HCl 4 mg 06/18/16 14:20 Zofran Injection IVPB Q6H PRN NAUSEA Sertraline HCl 50 mg 06/18/16 22:00 06/19/16 21:38 Zoloft - PO 50 mg HS [facility] Administration Sodium Bicarbonate 650 mg 06/18/16 15:45 06/20/16 06:52 Sodium Bicarbonate - PO 650 mg TID [facility] Administration -Echo: Normal LV size and function; concentric left ventricular hypertrophy, E/ A reversal consisted with decreased LV diastolic compliance. 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 1. Acute diastolic heart failure secondary to fluid overload - chest clear , mild jvp distension, no pedal edema - on coreg, hydralazine and norvasc - cardiology consult - 2. Acute kidney injury on stage 4 CKD - could be due to over diuresis in her previous admission in , base line creat 3.0 - Vasotec held - Renal US shows atrophic and echogenic kidneys - BUN, creatinine stable - on sodium bicarb 650 mg tid 3. Chronic diastolic heart failure - Continue Coreg, Norvasc 4. uncontrolled Hypertension - 181/70 - Continue Norvasc 5 bid , Coreg 12.5 bid - will increase hydralazine 25 mg tid to 50 tid - Vasotec held secondary to SARAI with hyperkalemia 5. Hypothyroidism - Continue Synthroid 6. Hyperlipidemia - Continue Lipitor fluid : orally allowed electrolyte mg 2 .2, k 4 .2 nutrition : low ileana diet dvt pro on heparin Dispo admit in med surg Visit type - Emergency Visit Emergency Visit: Yes ED Registration Date: 06/18/16 Care time: The patient presented to the Emergency Department on the above date and was hospitalized for further evaluation of their emergent condition. - New Patient This patient is new to me today: Yes Date on this admission: 06/20/16 - Critical Care Critical Care patient: No
[2016-06-20] MEDS: amLODIPine BESYLATE 5 MG TABLET (FP) PO SCH ×2 (09:45→22:04)
[2016-06-20] MEDS: CARVEDILOL 12.5 MG TABLET (FP) PO SCH ×2 (09:45→22:03)
[2016-06-20] MEDS: HEPARIN NA (PORCINE) 5,000 UNITS/ML 1ML VIAL SQ SCH ×2 (09:45→22:04)
[2016-06-20] MEDS: ASPIRIN 81 MG CHEWABLE TABLETS PO SCH (09:45)
--- NOTE | 2016-06-20 12:33 | PN ---
Teaching Attending Note Name of Resident: Maurice Ruffin ATTENDING PHYSICIAN STATEMENT I saw and evaluated the patient. I reviewed the resident's note and discussed the case with the resident. I agree with the resident's findings and plan as documented. SUBJECTIVE: Patient is sleepy. She denies chest pain, shortness of breath. 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 1. Acute diastolic heart failure secondary to fluid overload - Improved - s/p Lasix IV x 1 in ER - No evidence of pneumonia - Echo at [facility] showed normal LV systolic function, concentric LVH, E/A reversal 2. Acute kidney injury on stage 4 CKD - Vasotec held - Renal US shows atrophic and echogenic kidneys - BUN, creatinine stable 3. Chronic diastolic heart failure - Continue Coreg, Norvasc 4. Hypertension - Continue Norvasc, Coreg - Increase Hydralazine - Vasotec held secondary to SARAI with hyperkalemia 5. Hypothyroidism - Continue Synthroid 6. Hyperlipidemia - Continue Lipitor 7. Non-sustained ventricular tachycardia - Electrolytes, magnesium all WNL
--- NOTE | 2016-06-20 13:37 | CONSULT ---
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 Since admission reports clinical and radiographic improvement post diuresis, denies orthopnea, PND or LE edema. ER course was notable for: (1) EKG: NSR @ 76 1st deg AVB nonspec T wave changes (2) CXR: Cardiomegaly, pulmonary vascular congestion, bilateral pleural effusions (3) BUN/Cr 127/5.6 (4) K 5.4, given kayexelate (5) Bicarb 14 (6) BNP 15,546 (7) Troponin 0.07 - History Source History Provided By: Patient Limitations to Obtaining History: No Limitations - Past Medical History Cardio/Vascular: Yes: CHF, HTN, Hyperlipdemia, Other (MVP) Renal/: Yes: Renal Inusuff Endocrine: Yes: Hypothyroidism - Alcohol/Substance Use Hx Alcohol Use: No - Smoking History Smoking history: Former smoker Have you smoked in the past 12 months: No If you are a former smoker, when did you quit?: around 50 years Home Medications - Allergies Allergies/Adverse Reactions: Allergies Allergy/AdvReac Type Severity Reaction Status Date / Time Penicillins Allergy Unknown Verified 06/18/16 10:12 - Home Medications Home Medications: Ambulatory Orders Amlodipine Besylate [Norvasc -] 5 mg PO BID 06/18/16 Aspirin [ASA -] 81 mg PO WEEKLY 06/18/16 Atorvastatin Ca [Lipitor] 10 mg PO HS 06/18/16 Carvedilol [Coreg] 12.5 mg PO BID 06/18/16 Enalapril Maleate [Vasotec] 20 mg PO BID 06/18/16 Hydrochlorothiazide 25 mg PO Q8H 06/18/16 Levothyroxine [Synthroid -] 25 mcg PO DAILY 06/18/16 Sertraline HCl [Zoloft] 50 mg PO HS 06/18/16 Vital Signs: Vital Signs Temperature 98.4 F 06/20/16 09:42 Pulse Rate 64 06/20/16 09:42 Respiratory Rate 16 06/20/16 09:42 Blood Pressure 188/69 06/20/16 09:42 O2 Sat by Pulse Oximetry (%) 97 06/20/16 08:27 Constitutional: Yes: No Distress, Calm Neck: Yes: Supple Respiratory: Yes: Regular, Diminished Gastrointestinal: Yes: Normal Bowel Sounds, Soft Cardiovascular: Yes: Regular Rate and Rhythm JVD: No Carotid Bruit: No Heart Sounds: Yes: S1, S2 Edema: No - Other Data Labs, Other Data: CBC, BMP 06/20/16 05:50 06/20/16 05:50 Troponin, BNP 06/20/16 06/20/16 05:50 08:43 Troponin I 0.06 H Cancelled Troponin, BNP 06/20/16 06/20/16 05:50 08:43 Troponin I 0.06 H Cancelled Ejection Fraction %: LVEF > or = 40 % Imaging - Results Chest X-ray: Report Reviewed (Improved CHF and bilateral effusions) Problem List - Problems (1) Hypothyroidism Code(s): E03.9 - HYPOTHYROIDISM, UNSPECIFIED Qualifiers: Hypothyroidism type: unspecified Qualified Code(s): E03.9 - Hypothyroidism, unspecified (2) Shortness of breath Code(s): R06.02 - SHORTNESS OF BREATH (3) Acute on chronic diastolic (congestive) heart failure Code(s): I50.33 - ACUTE ON CHRONIC DIASTOLIC (CONGESTIVE) HEART FAILURE (4) Hypertensive urgency Code(s): I10 - ESSENTIAL (PRIMARY) HYPERTENSION (5) Hyperlipidemia Code(s): E78.5 - HYPERLIPIDEMIA, UNSPECIFIED Qualifiers: Hyperlipidemia type: pure hypercholesterolemia Qualified Code(s): E78.0 - Pure hypercholesterolemia (6) [id number] kidney injury Code(s): N17.9 - ACUTE KIDNEY FAILURE, UNSPECIFIED N18.9 - CHRONIC KIDNEY DISEASE, UNSPECIFIED (7) Subendocardial ischemia Code(s): I24.8 - OTHER FORMS OF ACUTE ISCHEMIC HEART DISEASE (8) Anemia Code(s): D64.9 - ANEMIA, UNSPECIFIED Qualifiers: Other causes of anemia: chronic disease, kidney Assessment/Plan Echo: Normal LV size and function; concentric left ventricular hypertrophy, E/A reversal consisted with decreased LV diastolic compliance. 1. Improving acute on chronic diastolic failure in context of 2. Hypertensive urgency 3. Acute on CKD 4 4. MVP 5. Hyperlipidemia 6. Hypothyroidism 7. Hydrocephelus post END POLISHER shunt 8. Non-sustained VT 9. Anemia of chronic kidney disease 10. Subendocardial ischemia P:1. Resume diuretics with monitor diuretic response, renal fxn and electrolytes 2. Increase carvedilol 25 bid, continue ASA 81 qd, Norvasc 5 bid, Lipitor 10 qhs , hydralazine 50 tid, start Demadex 40 qd, hold Vasotec pending renal recovery, add Imdur for additional BP control 3. Ischemia w/u once euvolemic, DVT prophylaxis 4. Thank you for consultative opportunity, plan of care d/w family
[2016-06-20] MEDS ORDERED: CARVEDILOL 12.5 MG TABLET (FP) PO ONE (14:03)
[2016-06-20] MEDS: hydrALAZINE HCL 50 MG TABLET (FP) PO SCH ×2 (14:18→22:03)
--- NOTE | 2016-06-20 14:52 | PN ---
Progress Note, Physician History of Present Illness: Pt seen and examined at bedside. She is awake and alert. She denies shortness of breath. - Current Medication List Current Medications: Active Medications Acetaminophen (Tylenol -) 650 mg PO Q6H PRN PRN Reason: FEVER OR PAIN Amlodipine Besylate (Norvasc -) 5 mg PO BID [facility] Last Admin: 06/20/16 09:45 Dose: 5 mg Aspirin (Asa -) 81 mg PO DAILY [facility] Last Admin: 06/20/16 09:45 Dose: 81 mg Atorvastatin Calcium (Lipitor -) 10 mg PO [facility] Last Admin: 06/19/16 21:38 Dose: 10 mg Carvedilol (Coreg -) 25 mg PO BID [facility] Docusate Sodium (Colace -) 100 mg PO TID [facility] Last Admin: 06/20/16 14:17 Dose: 100 mg Heparin Sodium (Porcine) (Heparin -) 5,000 unit SQ BID [facility] Last Admin: 06/20/16 09:45 Dose: 5,000 unit Hydralazine HCl (Apresoline -) 50 mg PO TID [facility] Last Admin: 06/20/16 14:18 Dose: 50 mg Levothyroxine Sodium (Synthroid -) 25 mcg PO DAILY@0700 [facility] Last Admin: 06/20/16 06:52 Dose: 25 mcg Ondansetron HCl (Zofran Injection) 4 mg IVPB Q6H PRN PRN Reason: NAUSEA Sertraline HCl (Zoloft -) 50 mg PO [facility] Last Admin: 06/19/16 21:38 Dose: 50 mg Sodium Bicarbonate (Sodium Bicarbonate -) 650 mg PO TID [facility] Last Admin: 06/20/16 14:17 Dose: 650 mg Torsemide (Demadex -) 40 mg PO DAILY [facility] - Objective Vital Signs: Vital Signs Temperature 98.4 F 06/20/16 09:42 Pulse Rate 63 06/20/16 14:23 Respiratory Rate 16 06/20/16 09:42 Blood Pressure 169/74 06/20/16 14:23 O2 Sat by Pulse Oximetry (%) 97 06/20/16 08:27 Constitutional: Yes: Calm Eyes: Yes: Conjunctiva Clear HENT: Yes: Atraumatic Neck: Yes: Supple Cardiovascular: Yes: S1, S2 Respiratory: Yes: CTA Bilaterally Gastrointestinal: Yes: Soft Genitourinary: Yes: WNL Musculoskeletal: Yes: WNL Edema: No Neurological: Yes: Oriented Psychiatric: Yes: Oriented Labs: CBC, BMP 06/20/16 05:50 06/20/16 05:50 - ....Imaging Chest X-ray: Report Reviewed Problem List - Problems (1) Acute renal failure Code(s): N17.9 - ACUTE KIDNEY FAILURE, UNSPECIFIED (2) CHF (congestive heart failure) Code(s): I50.9 - HEART FAILURE, UNSPECIFIED (3) Hypertension Code(s): I10 - ESSENTIAL (PRIMARY) HYPERTENSION (4) Hypothyroidism Code(s): E03.9 - HYPOTHYROIDISM, UNSPECIFIED Qualifiers: Hypothyroidism type: unspecified Qualified Code(s): E03.9 - Hypothyroidism, unspecified (5) Shortness of breath Code(s): R06.02 - SHORTNESS OF BREATH (6) Chronic kidney disease (CKD) Code(s): N18.9 - CHRONIC KIDNEY DISEASE, UNSPECIFIED Assessment/Plan Current Medications Generic Name Dose Route Start Last Admin Trade Name Freq PRN Reason Stop Dose Admin Acetaminophen 650 mg 06/18/16 14:20 Tylenol - PO Q6H PRN FEVER OR PAIN Amlodipine Besylate 5 mg 06/18/16 22:00 06/20/16 09:45 Norvasc - PO 5 mg BID [facility] Administration Aspirin 81 mg 06/19/16 10:00 06/20/16 09:45 Asa - PO 81 mg DAILY [facility] Administration Atorvastatin Calcium 10 mg 06/18/16 22:00 06/19/16 21:38 Lipitor - PO 10 mg HS [facility] Administration Carvedilol 25 mg 06/20/16 14:04 Coreg - PO BID [facility] Docusate Sodium 100 mg 06/18/16 22:00 06/20/16 14:17 Colace - PO 100 mg TID [facility] Administration Heparin Sodium (Porcine) 5,000 unit 06/18/16 22:00 06/20/16 09:45 Heparin - SQ 5,000 unit BID [facility] Administration Hydralazine HCl 50 mg 06/20/16 14:00 06/20/16 14:18 Apresoline - PO 50 mg TID [facility] Administration Levothyroxine Sodium 25 mcg 06/19/16 07:00 06/20/16 06:52 Synthroid - PO 25 mcg DAILY@0700 [facility] Administration Ondansetron HCl 4 mg 06/18/16 14:20 Zofran Injection IVPB Q6H PRN NAUSEA Sertraline HCl 50 mg 06/18/16 22:00 06/19/16 21:38 Zoloft - PO 50 mg HS [facility] Administration Sodium Bicarbonate 650 mg 06/18/16 15:45 06/20/16 14:17 Sodium Bicarbonate - PO 650 mg TID [facility] Administration Torsemide 40 mg 06/20/16 14:15 Demadex - PO DAILY [facility] Impression 1. CKD 2. SARAI 3. HTN 4. CHF 5. pleural effusion 6. hypothyroidism 7. hyperlipidemia 8. MVP Plan - resume diuretics - repeat labs in am - cardio input appreciated - renal function is slowly stabilizing - monitor BP - renal ultrasound reviewed - potassium is improved Dr Hernandez
[2016-06-20] MEDS: TORSEMIDE 20 MG TABLET (FP) PO SCH (15:13)
[2016-06-20] MEDS: ATORVASTATIN CA 10 MG TABLET (FP) PO SCH (22:03)
[2016-06-20] MEDS: SERTRALINE HCL 50 MG TABLET (FP) PO SCH (22:04)
[2016-06-21] MEDS: DOCUSATE SODIUM 100 MG CAPSULE (FP) PO SCH ×3 (06:43→22:15)
[2016-06-21] MEDS: SODIUM BICARBONATE 650 MG TABLET PO SCH ×3 (06:43→22:15)
[2016-06-21] MEDS: LEVOTHYROXINE NA 25 MCG TABLET (FP) PO SCH (06:43)
[2016-06-21] MEDS: hydrALAZINE HCL 50 MG TABLET (FP) PO SCH ×3 (06:43→22:15)
[2016-06-21 07:58] LABS: BASOPHIL 0.3 % (0-2.0); EOSINOPHIL 0.9 % (0-4.5); MCH 27.2 pg (25.7-33.7); MEAN CELL VOLUME 85.1 fl (80-96); MEAN PLT VOLUME 8.9 fl (7.5-11.1); NEUTROPHILS 67.7 % (42.8-82.8); PLATELET COUNT 199 K/MM3 (134-434); RDW 15.4 % (11.6-15.6); WHITE BLOOD COUNT 6.1 K/mm3 (4.0-10.0)
[2016-06-21 08:26] LABS: CALCIUM 7.8 mg/dL (8.5-10.1); CREATININE 5.3 mg/dL (0.55-1.02); MAGNESIUM 2.3 mg/dL (1.8-2.4)
[2016-06-21 08:33] LABS: THYROID STIMULATING HORMONE 0.08 uIU/ml (0.358-3.74)
[2016-06-21] MEDS: TORSEMIDE 20 MG TABLET (FP) PO SCH (09:24)
[2016-06-21] MEDS: HEPARIN NA (PORCINE) 5,000 UNITS/ML 1ML VIAL SQ SCH ×2 (09:24→22:16)
[2016-06-21] MEDS: CARVEDILOL 12.5 MG TABLET (FP) PO SCH ×2 (09:24→22:15)
[2016-06-21] MEDS: amLODIPine BESYLATE 5 MG TABLET (FP) PO SCH ×2 (09:25→22:15)
[2016-06-21] MEDS: ASPIRIN 81 MG CHEWABLE TABLETS PO SCH (09:25)
--- NOTE | 2016-06-21 10:28 | PN ---
Physical Exam: SUBJECTIVE: Patient seen and examined, patient feels better, denies chest pain, sob. States that she is tired all time and sleeps most of the day. OBJECTIVE: Vital Signs Period Temp Pulse Resp BP Sys/Alan Pulse Ox Last 24 Hr 98.2 F-98.8 F 58-66 14-20 130-169/48-74 95 GENERAL: The patient is awake, alert, and fully oriented, in no acute distress. HEAD: Normal with no signs of trauma. NECK: Full range of motion, supple. LUNGS: Breath sounds equal. no rale, no crackles, no wheeze HEART: Regular rate and rhythm, S1, S2 without murmur, rub or gallop. ABDOMEN: Soft, nontender, nondistended, normoactive bowel sounds, no guarding, no rebound, no hepatosplenomegaly, no masses. EXTREMITIES: 2+ pulses, warm, well-perfused, no pedal edema Laboratory Results - last 24 hr 06/21/16 06/21/16 05:48 05:48 WBC 6.1 RBC 3.15 L Hgb 8.6 L Hct 26.8 L MCV 85.1 MCHC 32.0 RDW 15.4 Plt Count 199 MPV 8.9 Neutrophils % 67.7 Lymphocytes % 22.1 D Monocytes % 9.0 Eosinophils % 0.9 Basophils % 0.3 Sodium 139 Potassium 4.5 Chloride 107 Carbon Dioxide 19 L Anion Gap 13 BUN 124 H* Creatinine 5.3 H D Random Glucose 93 Calcium 7.8 L Magnesium 2.3 TSH 0.08 L Active Medications Generic Name Dose Route Start Last Admin Trade Name Freq PRN Reason Stop Dose Admin Acetaminophen 650 mg 06/18/16 14:20 Tylenol - PO Q6H PRN FEVER OR PAIN Amlodipine Besylate 5 mg 06/18/16 22:00 06/21/16 09:25 Norvasc - PO 5 mg BID SHERITA Administration Aspirin 81 mg 06/19/16 10:00 06/21/16 09:25 Asa - PO 81 mg DAILY SHERITA Administration Atorvastatin Calcium 10 mg 06/18/16 22:00 06/20/16 22:03 Lipitor - PO 10 mg HS SHERITA Administration Carvedilol 25 mg 06/20/16 14:04 06/21/16 09:24 Coreg - PO 25 mg BID SHERITA Administration Docusate Sodium 100 mg 06/18/16 22:00 12/26/16 06:43 Colace - PO 100 mg TID SHERITA Administration Heparin Sodium (Porcine) 5,000 unit 06/18/16 22:00 06/21/16 09:24 Heparin - SQ 5,000 unit BID SHERITA Administration Hydralazine HCl 50 mg 06/20/16 14:00 06/21/16 06:43 Apresoline - PO 50 mg TID SHERITA Administration Levothyroxine Sodium 25 mcg 06/19/16 07:00 06/21/16 06:43 Synthroid - PO 25 mcg DAILY@0700 SHERITA Administration Ondansetron HCl 4 mg 06/18/16 14:20 Zofran Injection IVPB Q6H PRN NAUSEA Sertraline HCl 50 mg 06/18/16 22:00 06/20/16 22:04 Zoloft - PO 50 mg HS SHERITA Administration Sodium Bicarbonate 650 mg 06/18/16 15:45 06/21/16 06:43 Sodium Bicarbonate - PO 650 mg TID SHERITA Administration Torsemide 40 mg 06/20/16 14:15 06/21/16 09:24 Demadex - PO 40 mg DAILY SHERITA Administration ASSESSMENT/PLAN: This is an 86-year-old woman with a history of dementia, HTN, MVP, hyperlipidemia, hypothyroidism, diastolic CHF, 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 1. Acute diastolic heart failure secondary to fluid overload - chest clear , mild jvp distension, no pedal edema - on coreg 25 bid , hydralazine 50 ti d and norvasc 5mg bid - cardiology on case - patient had elevated trop i during admission, probably go for stress test tomorrow 2. Acute kidney injury on stage 4 CKD - could be due to over diuresis in her previous admission in , base line creat 3.0 - Vasotec held - yesterday patient was started on demadex 40mg po daily - Renal US shows atrophic and echogenic kidneys - BUN, creatinine increased from 4.1 to 5.3. BUN 124 - on sodium bicarb 650 mg tid - nephrology on case 3. Chronic diastolic heart failure - Continue Coreg, Norvasc 4. uncontrolled Hypertension - 146/50 - Continue Norvasc 5 bid , Coreg 25 bid - will increase hydralazine 50 tid - Vasotec held secondary to SARAI with hyperkalemia 5. Hypothyroidism - tsh 0.08 - patient is tired and sleepy all time, will increase synthroid to 50mcg daily 6. Hyperlipidemia - Continue Lipitor 7 constipation colace 100mg tid fluid : orally allowed electrolyte nutrition : renal diet dvt pro on heparin Dispo admit in med surg Visit type - Emergency Visit Emergency Visit: Yes ED Registration Date: 06/18/16 Care time: The patient presented to the Emergency Department on the above date and was hospitalized for further evaluation of their emergent condition. - New Patient This patient is new to me today: No - Critical Care Critical Care patient: No
--- NOTE | 2016-06-21 10:30 | PN ---
Teaching Attending Note Name of Resident: Maurice Ruffin ATTENDING PHYSICIAN STATEMENT I saw and evaluated the patient. I reviewed the resident's note and discussed the case with the resident. I agree with the resident's findings and plan as documented. SUBJECTIVE: Patient is c/o being tired all the time and has been going on for the past 3 weeks.She stated that she just wants to sleep, and not get out of bed, c/o having constipation. OBJECTIVE: Vital Signs Temperature 98.2 F 06/21/16 09:00 Pulse Rate 58 L 06/21/16 09:00 Respiratory Rate 14 06/21/16 09:00 Blood Pressure 146/50 06/21/16 09:00 O2 Sat by Pulse Oximetry (%) 95 06/20/16 20:33 GENERAL: Awake, alert, and fully oriented, in no acute distress. HEAD: Normal with no signs of trauma. EYES: Pupils equal, round and reactive to light, extraocular movements intact, sclera anicteric, conjunctiva clear. EARS, NOSE, THROAT: Ears normal, oropharynx clear without exudates. Moist mucous membranes. NECK: Normal range of motion, supple without lymphadenopathy, JVD, or masses. LUNGS: decreased BS sounds at the basis, no R/R/W. Left thoracentesis site dressing clean and dry. HEART: Regular rate and rhythm, normal S1 and S2, soft systolic murmur, no rub or gallop. ABDOMEN: Soft, nontender, not distended, normoactive bowel sounds, no guarding, no rebound, no masses. No hepatomegaly or splenomegaly. MUSCULOSKELETAL: Normal range of motion at all joints. No bony deformities or tenderness. No CVA tenderness. EXTREMITIES: 2+ pulses, warm, well-perfused. No calf tenderness, no edema. NEUROLOGICAL: Cranial nerves II-XII intact. Normal speech. Normal gait. PSYCHIATRIC: Cooperative. Good eye contact. Appropriate mood and affect. SKIN: Warm, dry, normal turgor, no rashes or lesions noted. CBCD WBC 6.1 K/mm3 (4.0-10.0) 06/21/16 05:48 RBC 3.15 M/mm3 (3.60-5.2) L 06/21/16 05:48 Hgb 8.6 GM/dL (10.7-15.3) L 06/21/16 05:48 Hct 26.8 % (32.4-45.2) L 06/21/16 05:48 MCV 85.1 fl (80-96) 06/21/16 05:48 MCHC 32.0 g/dl (32.0-36.0) 06/21/16 05:48 RDW 15.4 % (11.6-15.6) 06/21/16 05:48 Plt Count 199 K/MM3 (134-434) 06/21/16 05:48 MPV 8.9 fl (7.5-11.1) 06/21/16 05:48 CMP Sodium 139 mmol/L (136-145) 06/21/16 05:48 Potassium 4.5 mmol/L (3.5-5.1) 06/21/16 05:48 Chloride 107 mmol/L (98-107) 06/21/16 05:48 Carbon Dioxide 19 mmol/L (21-32) L 06/21/16 05:48 Anion Gap 13 (8-16) 06/21/16 05:48 BUN 124 mg/dL (7-18) H* 06/21/16 05:48 Creatinine 5.3 mg/dL (0.55-1.02) H D 06/21/16 05:48 Creat Clearance w eGFR 10.32 (>60) 06/19/16 05:45 Random Glucose 93 mg/dL (74-106) 06/21/16 05:48 Calcium 7.8 mg/dL (8.5-10.1) L 06/21/16 05:48 Total Bilirubin 0.7 mg/dL (0.2-1.0) D 06/19/16 05:45 AST 18 U/L (15-37) D 06/19/16 05:45 ALT 38 U/L (12-78) 06/19/16 05:45 Alkaline Phosphatase 66 U/L (45-117) 06/19/16 05:45 Total Protein 6.5 g/dl (6.4-8.2) 06/19/16 05:45 Albumin 2.8 g/dl (3.4-5.0) L 06/19/16 05:45 CARDIAC ENZYMES Creatine Kinase 142 IU/L (26-192) 06/18/16 19:30 Troponin I 0.06 ng/ml (0.00-0.05) H 06/20/16 05:50 Current Medications Generic Name Dose Route Start Last Admin Trade Name Freq PRN Reason Stop Dose Admin Acetaminophen 650 mg 06/18/16 14:20 Tylenol - PO Q6H PRN FEVER OR PAIN Amlodipine Besylate 5 mg 06/18/16 22:00 06/21/16 09:25 Norvasc - PO 5 mg BID SHERITA Administration Aspirin 81 mg 06/19/16 10:00 06/21/16 09:25 Asa - PO 81 mg DAILY SHERITA Administration Atorvastatin Calcium 10 mg 06/18/16 22:00 06/20/16 22:03 Lipitor - PO 10 mg HS SHERITA Administration Carvedilol 25 mg 06/20/16 14:04 06/21/16 09:24 Coreg - PO 25 mg BID SHERITA Administration Docusate Sodium 100 mg 06/18/16 22:00 06/21/16 06:43 Colace - PO 100 mg TID SHERITA Administration Heparin Sodium (Porcine) 5,000 unit 06/18/16 22:00 06/21/16 09:24 Heparin - SQ 5,000 unit BID SHERITA Administration Hydralazine HCl 50 mg 06/20/16 14:00 06/21/16 06:43 Apresoline - PO 50 mg TID SHERITA Administration Levothyroxine Sodium 25 mcg 06/19/16 07:00 06/21/16 06:43 Synthroid - PO 25 mcg DAILY@0700 SHERITA Administration Ondansetron HCl 4 mg 06/18/16 14:20 Zofran Injection IVPB Q6H PRN NAUSEA Sertraline HCl 50 mg 06/18/16 22:00 06/20/16 22:04 Zoloft - PO 50 mg HS SHERITA Administration Sodium Bicarbonate 650 mg 06/18/16 15:45 06/21/16 06:43 Sodium Bicarbonate - PO 650 mg TID SHERITA Administration Torsemide 40 mg 06/20/16 14:15 06/21/16 09:24 Demadex - PO 40 mg DAILY SHERITA Administration Medication Instructions Recorded Amlodipine Besylate [Norvasc -] 5 mg PO BID 06/18/16 Aspirin [ASA -] 81 mg PO WEEKLY 06/18/16 Atorvastatin Ca [Lipitor] 10 mg PO HS 06/18/16 Carvedilol [Coreg] 12.5 mg PO BID 12/23/16 Enalapril Maleate [Vasotec] 20 mg PO BID 06/18/16 Hydrochlorothiazide 25 mg PO Q8H 06/18/16 Levothyroxine [Synthroid -] 25 mcg PO DAILY 06/18/16 Sertraline HCl [Zoloft] 50 mg PO HS 06/18/16 ASSESSMENT AND PLAN: This is an 86-year-old woman with a history of dementia, HTN, MVP, hyperlipidemia, hypothyroidism, diastolic CHF, 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 # Acute kidney injury on stage 4 CKD with worsening renal function ,discussed with Nephro. is on the case ; ;will hold torsemide and Vasotec ; Renal US shows atrophic and echogenic kidneys ;continue to monitor BUN/ creatinine. # Acute on chronic diastolic heart failure secondary to fluid overload improving s/p Lasix IV x 1 in ER, No evidence of pneumonia, Echo at [facility] showed normal LV systolic function, concentric LVH ;continue Coreg, Norvasc, Torsemide, Hydralazine # Hypertension uncontrolled continue Norvasc, Coreg, Increased Hydralazine , Vasotec is on hold secondary to SARAI with hyperkalemia also on Torsemide # Hypothyroidism ;Increased the dose of Synthroid to 50mcg since patient is having symptoms of hypothyroidism, sleeps all the time, does not want to get out of bed, c/o having constipation. increased to 50mcg. level of TSH 0.08 # Hyperlipidemia continue Lipitor # Non-sustained ventricular tachycardia continue to monitor electrolytes, magnesium all WNL; keep mag level of 2.0 and potassium of level 4.0.also monitor Kidney function since has stage 4 CKD. DVT Px: Heparin Sq
--- NOTE | 2016-06-21 11:29 | PN ---
Progress Note, Physician History of Present Illness: Denies dyspnea, orthopnea, LE edema. - Current Medication List Current Medications: Active Medications Acetaminophen (Tylenol -) 650 mg PO Q6H PRN PRN Reason: FEVER OR PAIN Amlodipine Besylate (Norvasc -) 5 mg PO BID [facility] Last Admin: 06/21/16 09:25 Dose: 5 mg Aspirin (Asa -) 81 mg PO DAILY [facility] Last Admin: 06/21/16 09:25 Dose: 81 mg Atorvastatin Calcium (Lipitor -) 10 mg PO [facility] Last Admin: 06/20/16 22:03 Dose: 10 mg Carvedilol (Coreg -) 25 mg PO BID [facility] Last Admin: 06/21/16 09:24 Dose: 25 mg Docusate Sodium (Colace -) 100 mg PO TID [facility] Last Admin: 06/21/16 06:43 Dose: 100 mg Heparin Sodium (Porcine) (Heparin -) 5,000 unit SQ BID [facility] Last Admin: 06/21/16 09:24 Dose: 5,000 unit Hydralazine HCl (Apresoline -) 50 mg PO TID [facility] Last Admin: 06/21/16 06:43 Dose: 50 mg Levothyroxine Sodium (Synthroid -) 50 mcg PO DAILY@0700 [facility] Ondansetron HCl (Zofran Injection) 4 mg IVPB Q6H PRN PRN Reason: NAUSEA Sertraline HCl (Zoloft -) 50 mg PO [facility] Last Admin: 06/20/16 22:04 Dose: 50 mg Sodium Bicarbonate (Sodium Bicarbonate -) 650 mg PO TID [facility] Last Admin: 06/21/16 06:43 Dose: 650 mg Torsemide (Demadex -) 40 mg PO DAILY [facility] Last Admin: 06/21/16 09:24 Dose: 40 mg - Objective Vital Signs: Vital Signs Temperature 98.2 F 06/21/16 09:00 Pulse Rate 58 L 06/21/16 09:00 Respiratory Rate 14 06/21/16 09:00 Blood Pressure 146/50 06/21/16 09:00 O2 Sat by Pulse Oximetry (%) 95 06/20/16 20:33 Constitutional: Yes: No Distress, Calm, Thin Neck: Yes: Supple Cardiovascular: Yes: Regular Rate and Rhythm Respiratory: Yes: Regular, Diminished Gastrointestinal: Yes: Normal Bowel Sounds, Soft Edema: No Labs: CBC, BMP 06/21/16 05:48 06/21/16 05:48 - ....Imaging Chest X-ray: Report Reviewed (Improved congestion and effusion) EKG: Report Reviewed (Tele: SR) Problem List - Problems (1) Hypothyroidism Code(s): E03.9 - HYPOTHYROIDISM, UNSPECIFIED Qualifiers: Hypothyroidism type: unspecified Qualified Code(s): E03.9 - Hypothyroidism, unspecified (2) Shortness of breath Code(s): R06.02 - SHORTNESS OF BREATH (3) Acute on chronic diastolic (congestive) heart failure Code(s): I50.33 - ACUTE ON CHRONIC DIASTOLIC (CONGESTIVE) HEART FAILURE (4) Hypertensive urgency Code(s): I10 - ESSENTIAL (PRIMARY) HYPERTENSION (5) Hyperlipidemia Code(s): E78.5 - HYPERLIPIDEMIA, UNSPECIFIED Qualifiers: Hyperlipidemia type: pure hypercholesterolemia Qualified Code(s): E78.0 - Pure hypercholesterolemia (6) [id number] kidney injury Code(s): N17.9 - ACUTE KIDNEY FAILURE, UNSPECIFIED N18.9 - CHRONIC KIDNEY DISEASE, UNSPECIFIED (7) Subendocardial ischemia Code(s): I24.8 - OTHER FORMS OF ACUTE ISCHEMIC HEART DISEASE (8) Anemia Code(s): D64.9 - ANEMIA, UNSPECIFIED Qualifiers: Other causes of anemia: chronic disease, kidney Assessment/Plan Echo: Normal LV size and function; concentric left ventricular hypertrophy, E/A reversal consisted with decreased LV diastolic compliance. 1. Improving acute on chronic diastolic failure in context of 2. Hypertensive urgency resolved 3. Acute on CKD 4 4. MVP 5. Hyperlipidemia 6. Symptomatic hypothyroidism with abnormal TSH 7. Hydrocephelus post PIPELINE EXECUTIVE shunt 8. Non-sustained VT 9. Anemia of chronic kidney disease 10. Subendocardial ischemia P:1. Decrease Demadex 20 qd with monitor diuretic response, renal fxn and electrolytes 2. Continue carvedilol 25 bid, continue ASA 81 qd, Norvasc 5 bid, Lipitor 10 qhs , hydralazine 50 tid, hold Vasotec pending renal recovery, add Imdur 30 qd for additional BP control 3. Ischemia w/u once euvolemic, DVT prophylaxis 4. DVT prophylaxis
[2016-06-21] MEDS ORDERED: TORSEMIDE 20 MG TABLET (FP) PO SCH (11:36)
--- NOTE | 2016-06-21 15:57 | PN ---
Progress Note, Physician History of Present Illness: Pt seen and examined at bedside. She is awake and alert. She denies shortness of breath. - Current Medication List Current Medications: Active Medications Acetaminophen (Tylenol -) 650 mg PO Q6H PRN PRN Reason: FEVER OR PAIN Amlodipine Besylate (Norvasc -) 5 mg PO BID [facility] Last Admin: 06/21/16 09:25 Dose: 5 mg Aspirin (Asa -) 81 mg PO DAILY [facility] Last Admin: 06/21/16 09:25 Dose: 81 mg Atorvastatin Calcium (Lipitor -) 10 mg PO HS [facility] Last Admin: 06/20/16 22:03 Dose: 10 mg Carvedilol (Coreg -) 25 mg PO BID [facility] Last Admin: 06/21/16 09:24 Dose: 25 mg Docusate Sodium (Colace -) 100 mg PO TID [facility] Last Admin: 06/21/16 13:50 Dose: 100 mg Heparin Sodium (Porcine) (Heparin -) 5,000 unit SQ BID [facility] Last Admin: 06/21/16 09:24 Dose: 5,000 unit Hydralazine HCl (Apresoline -) 50 mg PO TID [facility] Last Admin: 06/21/16 13:50 Dose: 50 mg Levothyroxine Sodium (Synthroid -) 50 mcg PO DAILY@0700 [facility] Ondansetron HCl (Zofran Injection) 4 mg IVPB Q6H PRN PRN Reason: NAUSEA Sertraline HCl (Zoloft -) 50 mg PO [facility] Last Admin: 06/20/16 22:04 Dose: 50 mg Sodium Bicarbonate (Sodium Bicarbonate -) 650 mg PO TID [facility] Last Admin: 06/21/16 13:50 Dose: 650 mg Torsemide (Demadex -) 20 mg PO DAILY [facility] - Objective Vital Signs: Vital Signs Temperature 97.9 F 06/21/16 13:00 Pulse Rate 54 L 06/21/16 13:00 Respiratory Rate 18 06/21/16 13:00 Blood Pressure 135/49 06/21/16 13:00 O2 Sat by Pulse Oximetry (%) 94 L 06/21/16 09:00 Constitutional: Yes: Calm Eyes: Yes: Conjunctiva Clear HENT: Yes: Atraumatic Neck: Yes: Supple Cardiovascular: Yes: S1, S2 Respiratory: Yes: CTA Bilaterally, On Nasal O2 Gastrointestinal: Yes: Soft Musculoskeletal: Yes: WNL Extremities: Yes: WNL Edema: No Neurological: Yes: Oriented Psychiatric: Yes: Oriented Labs: CBC, BMP 06/21/16 05:48 06/21/16 05:48 Problem List - Problems (1) Acute renal failure Code(s): N17.9 - ACUTE KIDNEY FAILURE, UNSPECIFIED (2) CHF (congestive heart failure) Code(s): I50.9 - HEART FAILURE, UNSPECIFIED (3) Hypertension Code(s): I10 - ESSENTIAL (PRIMARY) HYPERTENSION (4) Hypothyroidism Code(s): E03.9 - HYPOTHYROIDISM, UNSPECIFIED Qualifiers: Hypothyroidism type: unspecified Qualified Code(s): E03.9 - Hypothyroidism, unspecified (5) Shortness of breath Code(s): R06.02 - SHORTNESS OF BREATH (6) Chronic kidney disease (CKD) Code(s): N18.9 - CHRONIC KIDNEY DISEASE, UNSPECIFIED Assessment/Plan Current Medications Generic Name Dose Route Start Last Admin Trade Name Freq PRN Reason Stop Dose Admin Acetaminophen 650 mg 06/18/16 14:20 Tylenol - PO Q6H PRN FEVER OR PAIN Amlodipine Besylate 5 mg 06/18/16 22:00 06/21/16 09:25 Norvasc - PO 5 mg BID SHERITA Administration Aspirin 81 mg 06/19/16 10:00 06/21/16 09:25 Asa - PO 81 mg DAILY SHERITA Administration Atorvastatin Calcium 10 mg 06/18/16 22:00 06/20/16 22:03 Lipitor - PO 10 mg HS SHERITA Administration Carvedilol 25 mg 06/20/16 14:04 06/21/16 09:24 Coreg - PO 25 mg BID SHERITA Administration Docusate Sodium 100 mg 06/18/16 22:00 06/21/16 13:50 Colace - PO 100 mg TID SHERITA Administration Heparin Sodium (Porcine) 5,000 unit 06/18/16 22:00 06/21/16 09:24 Heparin - SQ 5,000 unit BID SHERITA Administration Hydralazine HCl 50 mg 06/20/16 14:00 06/21/16 13:50 Apresoline - PO 50 mg TID SHERITA Administration Levothyroxine Sodium 50 mcg 06/22/16 07:00 Synthroid - PO DAILY@0700 [facility] Ondansetron HCl 4 mg 12/23/16 14:20 Zofran Injection IVPB Q6H PRN NAUSEA Sertraline HCl 50 mg 06/18/16 22:00 06/20/16 22:04 Zoloft - PO 50 mg HS SHERITA Administration Sodium Bicarbonate 650 mg 06/18/16 15:45 06/21/16 13:50 Sodium Bicarbonate - PO 650 mg TID SHERITA Administration Torsemide 20 mg 06/21/16 11:36 Demadex - PO DAILY SHERITA Impression 1. CKD 2. SARAI 3. HTN 4. CHF 5. pleural effusion 6. hypothyroidism 7. hyperlipidemia 8. MVP Plan - renal function worse today - will hold dose of diuretic tomorrow until labs reviewed - pt does not appear fluid overloaded - repeat labs in am - cardio input appreciated - monitor BP - potassium is improved - cont with bicarb Dr Hernandez
[2016-06-21] MEDS: SERTRALINE HCL 50 MG TABLET (FP) PO SCH (22:15)
[2016-06-21] MEDS: ATORVASTATIN CA 10 MG TABLET (FP) PO SCH (22:15)
[2016-06-22] MEDS: hydrALAZINE HCL 50 MG TABLET (FP) PO SCH ×3 (06:26→21:12)
[2016-06-22] MEDS: DOCUSATE SODIUM 100 MG CAPSULE (FP) PO SCH ×3 (06:27→21:12)
[2016-06-22] MEDS: SODIUM BICARBONATE 650 MG TABLET PO SCH ×3 (06:27→21:11)
[2016-06-22] MEDS: LEVOTHYROXINE NA 50 MCG TABLET (FP) PO SCH (06:27)
[2016-06-22 09:24] LABS: CALCIUM 7.7 mg/dL (8.5-10.1); CREATININE 6.3 mg/dL (0.55-1.02); FREE T4 1.09 ng/dl (0.76-1.46); THYROID STIMULATING HORMONE 0.07 uIU/ml (0.358-3.74)
[2016-06-22] MEDS ORDERED: DIPYRIDAMOLE STRESS TEST IVPB ONE (10:00)
[2016-06-22] MEDS ORDERED: DEXTROSE 5% IVPB ONE (10:00)
[2016-06-22] MEDS ORDERED: WATER IVPB ONE (10:00)
--- NOTE | 2016-06-22 12:33 | PN ---
Physical Exam: Nephrology Progress Note SUBJECTIVE: Patient seen and examined in cardiology today. She states that she feels well and has no shortness of breath at this time. Her son and she are still considering dialysis for further management. Has stress test scheduled for today at hospital. OBJECTIVE: Vital Signs Temperature 98.1 F 06/22/16 08:30 Pulse Rate 63 06/22/16 08:30 Respiratory Rate 18 06/22/16 09:00 Blood Pressure 169/69 06/22/16 08:30 O2 Sat by Pulse Oximetry (%) 95 06/22/16 09:00 GENERAL: The patient is awake, alert, and fully oriented, in no acute distress. HEAD: Normal with no signs of trauma. EYES: extraocular movements intact, sclera anicteric, no ptosis. ENT: moist mucous membranes. NECK: Trachea midline, full range of motion LUNGS: Breath sounds equal, clear to auscultation bilaterally, no wheezes, no crackles, no accessory muscle use. HEART: Regular rate and rhythm, S1, S2 without murmur, rub or gallop. ABDOMEN: Soft, nontender, nondistended, normoactive bowel sounds, no guarding, no rebound EXTREMITIES: 2+ pulses, warm, well-perfused, no edema. NEUROLOGICAL: Normal speech, gait not observed. PSYCH: Normal mood, normal affect. SKIN: Warm, dry Laboratory Results - last 24 hr 06/22/16 05:35 Sodium 138 Potassium 4.4 Chloride 104 Carbon Dioxide 16 L Anion Gap 18 H BUN 141 H* Creatinine 6.3 H Random Glucose 98 Calcium 7.7 L TSH 0.07 L D Free T4 1.09 Microbiology 06/18/16 10:30 Blood - Peripheral Venous Blood Culture - Preliminary NO GROWTH OBTAINED AFTER 96 HOURS, INCUBATION TO CONTINUE FOR 1 DAYS. 06/18/16 10:30 Blood - Peripheral Venous Blood Culture - Preliminary NO GROWTH OBTAINED AFTER 96 HOURS, INCUBATION TO CONTINUE FOR 1 DAYS. Active Medications Generic Name Dose Route Start Last Admin Trade Name Freq PRN Reason Stop Dose Admin Acetaminophen 650 mg 06/18/16 14:20 Tylenol - PO Q6H PRN FEVER OR PAIN Amlodipine Besylate 5 mg 06/18/16 22:00 06/21/16 22:15 Norvasc - PO 5 mg BID SHERITA Administration Aspirin 81 mg 06/19/16 10:00 12/26/16 09:25 Asa - PO 81 mg DAILY SHER[facility] Administration Atorvastatin Calcium 10 mg 06/18/16 22:00 06/21/16 22:15 Lipitor - PO 10 mg HS SHERITA Administration Carvedilol 25 mg 06/20/16 14:04 06/21/16 22:15 Coreg - PO 25 mg BID SHERITA Administration Docusate Sodium 100 mg 06/18/16 22:00 06/22/16 06:27 Colace - PO Not Given TID [facility] Heparin Sodium (Porcine) 5,000 unit 06/18/16 22:00 06/21/16 22:16 Heparin - SQ 5,000 unit BID SHERITA Administration Hydralazine HCl 50 mg 06/20/16 14:00 06/22/16 06:26 Apresoline - PO Not Given TID [facility] Levothyroxine Sodium 50 mcg 06/22/16 07:00 06/22/16 06:27 Synthroid - PO Not Given DAILY@0700 [facility] Ondansetron HCl 4 mg 06/18/16 14:20 Zofran Injection IVPB Q6H PRN NAUSEA Sertraline HCl 50 mg 06/18/16 22:00 06/21/16 22:15 Zoloft - PO 50 mg HS [facility]ERITA Administration Sodium Bicarbonate 650 mg 06/18/16 15:45 06/22/16 06:27 Sodium Bicarbonate - PO Not Given TID [facility] ASSESSMENT/PLAN: 86 y/o F w/ PMH of HTN, MVP, dementia, HLD, hypothyroidism, dCHF, 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 Assessment -SARAI on CKD -acute dCHF exacerbation on chronic dCHF -HTN -HLD -Hypothyroidism -MVP Plan: -Renal function continues to worsen -Hold diuretics in setting of SARAI -will require dialysis as pt likely to become fluid overloaded w/o diuretics but also to have worsening renal failure with use of diuretics. Dr. Hernandez has spoken to family and patient regarding requirement for dialysis and explained risks and benefits. -will make NPO after midnight for possible permacath placement tomorrow. Family and pt still need to agree to permacath placement but understand that she will be NPO after midnight for possible placement tomorrow. -c/w bicarb -c/w synthroid Problem List - Problems (1) Acute on chronic diastolic (congestive) heart failure Code(s): I50.33 - ACUTE ON CHRONIC DIASTOLIC (CONGESTIVE) HEART FAILURE (2) Acute renal failure Code(s): N17.9 - ACUTE KIDNEY FAILURE, UNSPECIFIED (3) [id number] kidney injury Code(s): N17.9 - ACUTE KIDNEY FAILURE, UNSPECIFIED N18.9 - CHRONIC KIDNEY DISEASE, UNSPECIFIED (4) Anemia Code(s): D64.9 - ANEMIA, UNSPECIFIED Qualifiers: Other causes of anemia: chronic disease, kidney (5) CHF (congestive heart failure) Code(s): I50.9 - HEART FAILURE, UNSPECIFIED (6) Chronic kidney disease (CKD) Code(s): N18.9 - CHRONIC KIDNEY DISEASE, UNSPECIFIED (7) Hypertension Code(s): I10 - ESSENTIAL (PRIMARY) HYPERTENSION (8) Hypothyroidism Code(s): E03.9 - HYPOTHYROIDISM, UNSPECIFIED Qualifiers: Hypothyroidism type: unspecified Qualified Code(s): E03.9 - Hypothyroidism, unspecified (9) Low bicarbonate level Code(s): E87.8 - OTH DISORDERS OF ELECTROLYTE AND FLUID BALANCE, NEC (10) Shortness of breath Code(s): R06.02 - SHORTNESS OF BREATH Visit type - Emergency Visit Emergency Visit: Yes ED Registration Date: 06/18/16 Care time: The patient presented to the Emergency Department on the above date and was hospitalized for further evaluation of their emergent condition. - New Patient This patient is new to me today: No - Critical Care Critical Care patient: No
--- NOTE | 2016-06-22 12:42 | PN ---
Teaching Attending Note Name of Resident: Umesh Rosales (Nephrology) ATTENDING PHYSICIAN STATEMENT I saw and evaluated the patient. I reviewed the resident's note and discussed the case with the resident. I agree with the resident's findings and plan as documented. cardio s1s2 reg pulm clear GI soft ext neg edema neuro awake and alert Impression 1. CKD 2. SARAI 3. HTN 4. CHF 5. pleural effusion 6. hypothyroidism 7. hyperlipidemia 8. MVP Plan - renal function continues to worsen - hold diuretics today - called and discussed care with pts communications intern - spoke to pt and family at length - will likely need HD as it has become more difficult to keep pt euvolemic with safe renal function - follow up stress test - discussed with cardiology - get cxr Dr Hernandez Problem List - Problems (1) Acute renal failure Code(s): N17.9 - ACUTE KIDNEY FAILURE, UNSPECIFIED (2) CHF (congestive heart failure) Code(s): I50.9 - HEART FAILURE, UNSPECIFIED (3) Hypertension Code(s): I10 - ESSENTIAL (PRIMARY) HYPERTENSION (4) Hypothyroidism Code(s): E03.9 - HYPOTHYROIDISM, UNSPECIFIED Qualifiers: Hypothyroidism type: unspecified Qualified Code(s): E03.9 - Hypothyroidism, unspecified (5) Shortness of breath Code(s): R06.02 - SHORTNESS OF BREATH (6) Chronic kidney disease (CKD) Code(s): N18.9 - CHRONIC KIDNEY DISEASE, UNSPECIFIED
--- NOTE | 2016-06-22 12:51 | PN ---
Physical Exam: SUBJECTIVE: Patient seen and examined OBJECTIVE: Vital Signs Period Temp Pulse Resp BP Sys/Alan Pulse Ox Last 24 Hr 97.9 F-98.6 F 54-65 17-20 135-169/49-69 94-95 GENERAL: The patient is awake, alert, and fully oriented, in no acute distress. HEAD: Normal with no signs of trauma. NECK: Full range of motion, supple. LUNGS: Breath sounds equal. no rale, no crackles, no wheeze HEART: Regular rate and rhythm, S1, S2 without murmur, rub or gallop. ABDOMEN: Soft, nontender, nondistended, normoactive bowel sounds, no guarding, no rebound, no hepatosplenomegaly, no masses. EXTREMITIES: 2+ pulses, warm, well-perfused, no pedal edema Laboratory Results - last 24 hr 06/22/16 05:35 Sodium 138 Potassium 4.4 Chloride 104 Carbon Dioxide 16 L Anion Gap 18 H BUN 141 H* Creatinine 6.3 H Random Glucose 98 Calcium 7.7 L TSH 0.07 L D Free T4 1.09 Active Medications Generic Name Dose Route Start Last Admin Trade Name Freq PRN Reason Stop Dose Admin Acetaminophen 650 mg 06/18/16 14:20 Tylenol - PO Q6H PRN FEVER OR PAIN Amlodipine Besylate 5 mg 06/18/16 22:00 06/21/16 22:15 Norvasc - PO 5 mg BID [facility] Administration Aspirin 81 mg 06/19/16 10:00 06/21/16 09:25 Asa - PO 81 mg DAILY [facility] Administration Atorvastatin Calcium 10 mg 06/18/16 22:00 06/21/16 22:15 Lipitor - PO 10 mg HS SHERITA Administration Carvedilol 25 mg 06/20/16 14:04 06/21/16 22:15 Coreg - PO 25 mg BID [facility] Administration Docusate Sodium 100 mg 06/18/16 22:00 06/22/16 06:27 Colace - PO Not Given TID [facility] Heparin Sodium (Porcine) 5,000 unit 06/18/16 22:00 06/21/16 22:16 Heparin - SQ 5,000 unit BID [facility] Administration Hydralazine HCl 50 mg 06/20/16 14:00 06/22/16 06:26 Apresoline - PO Not Given TID [facility] Levothyroxine Sodium 50 mcg 06/22/16 07:00 06/22/16 06:27 Synthroid - PO Not Given DAILY@0700 [facility] Ondansetron HCl 4 mg 06/18/16 14:20 Zofran Injection IVPB Q6H PRN NAUSEA Sertraline HCl 50 mg 06/18/16 22:00 06/21/16 22:15 Zoloft - PO 50 mg HS SHERITA Administration Sodium Bicarbonate 650 mg 06/18/16 15:45 06/22/16 06:27 Sodium Bicarbonate - PO Not Given TID [facility] ASSESSMENT/PLAN: This is an 86-year-old woman with a history of dementia, HTN, MVP, hyperlipidemia, hypothyroidism, diastolic CHF, [employer] shunt, and CKD 4 who presented with shortness of breath. 1. Acute diastolic heart failure secondary to fluid overload - chest clear , mild jvp distension, no pedal edema - on coreg 25 bid , hydralazine 50 tid and norvasc 5mg bid - cardiology on case - patient had elevated trop i during admission, probably go for stress test tomorrow 2. Acute kidney injury on stage 4 CKD - could be due to over diuresis in her previous admission in [facility], base line creat 3.0 -Renal function continues to worsen cr 5.1--->6.3 -Hold diuretics in setting of SARAI - Nephrology consult appreciated; will require dialysis as pt likely to become fluid overloaded w/o diuretics but also to have worsening renal failure with use of diuretics. - patient family is still deciding over permacath -c/w bicarb 3. Chronic diastolic heart failure - Continue Coreg, Norvasc 4. uncontrolled Hypertension - 135/69, controlled - Continue Norvasc 5 bid , Coreg 25 bid - will increase hydralazine 50 tid - Vasotec held secondary to SARAI with hyperkalemia 5. Hypothyroidism - tsh 0.08 - continue wth synthyroid 50mcg 6. Hyperlipidemia - Continue Lipitor 7 constipation colace 100mg tid fluid : orally allowed electrolyte nutrition : renal diet dvt pro on heparin Dispo admit in med surg Visit type - Emergency Visit Emergency Visit: Yes ED Registration Date: 06/18/16 Care time: The patient presented to the Emergency Department on the above date and was hospitalized for further evaluation of their emergent condition. - New Patient This patient is new to me today: No - Critical Care Critical Care patient: No
--- NOTE | 2016-06-22 13:09 | PN ---
Progress Note (short form) - Note Progress Note: Chief Complaint: Events noted, notes reviewed, denies any chest pain or dyspnea History of Present Illness: Seen and examined in cardiology pre-stress test. Events noted, notes reviewed, denies any chest pain or dyspnea Hypertensive did not receive antihypertensive therapy this AM Echocardiography revealed normal LV size and function; concentric left ventricular hypertrophy, E/A reversal consisted with decreased LV diastolic compliance - Current Medication List Current Medications Acetaminophen (Tylenol -) 650 mg PO Q6H PRN PRN Reason: FEVER OR PAIN Amlodipine Besylate (Norvasc -) 5 mg PO BID [facility] Last Admin: 06/21/16 22:15 Dose: 5 mg Aspirin (Asa -) 81 mg PO DAILY [facility] Last Admin: 06/21/16 09:25 Dose: 81 mg Atorvastatin Calcium (Lipitor -) 10 mg PO [facility] Last Admin: 06/21/16 22:15 Dose: 10 mg Carvedilol (Coreg -) 25 mg PO BID [facility] Last Admin: 06/21/16 22:15 Dose: 25 mg Docusate Sodium (Colace -) 100 mg PO TID [facility] Last Admin: 06/22/16 06:27 Dose: Not Given Heparin Sodium (Porcine) (Heparin -) 5,000 unit SQ BID [facility] Last Admin: 06/21/16 22:16 Dose: 5,000 unit Hydralazine HCl (Apresoline -) 50 mg PO TID [facility] Last Admin: 06/22/16 06:26 Dose: Not Given Levothyroxine Sodium (Synthroid -) 50 mcg PO DAILY@0700 [facility] Last Admin: 06/22/16 06:27 Dose: Not Given Ondansetron HCl (Zofran Injection) 4 mg IVPB Q6H PRN PRN Reason: NAUSEA Sertraline HCl (Zoloft -) 50 mg PO [facility] Last Admin: 06/21/16 22:15 Dose: 50 mg Sodium Bicarbonate (Sodium Bicarbonate -) 650 mg PO TID [facility] Last Admin: 06/22/16 06:27 Dose: Not Given Review of Systems Cardiovascular: As noted above Respiratory: denies: Cough or Sputum Production Gastrointestinal: denies: Nausea, Vomiting, Diarrhea, Constipation or Abdominal Discomfort Musculoskeletal: No Symptoms Reported Endocrine: No Symptoms Reported - Objective Vital Signs: Last Vital Signs Temp Pulse Resp BP Pulse Ox 98.1 F 63 18 169/69 95 06/22/16 08:30 12/27/16 08:30 06/22/16 09:00 06/22/16 08:30 06/22/16 09:00 Constitutional: No Distress, Calm, Thin Neck: Supple Negative JVD No bruit Cardiovascular: S1 S2 Regular Rate and Rhythm Grade 1/6 SM Respiratory: Diminished at the Bases Bilaterally Gastrointestinal: Soft Benign Normal Bowel Sounds Ext: No Edema Labs: CBC, BMP 06/21/16 05:48 06/22/16 05:35 Assessment/Plan ASSESSMENT: 1. Acute on chronic diastolic class II-III NYHA classification LV failure, resolved 2. Hypertensive urgency, labile blood pressure 3. 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 Acute on CKD 5. MVP 6. 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 Hypothyroidism abnormal TSH 9. Anemia of chronic kidney disease PLAN: 1. IV Lopressor for BP control pre MPI study, to be administered in cardiology 2. Continue Carvedilol 3. Continue Norvasc 4. Continue Hydralazine 5. Continue ASA 6. Continue Lipitor 7. Ideally should be on ACEI or ARBS pending renal function stabilization 8. MPI study to evaluate CAD and ischemic burden 9. Patient will probably require HD sooner then later considering her clinical presentation and the above noted worsening renal function Ayesha Chambers M.D.
[2016-06-22] MEDS ORDERED: METOPROLOL TARTRATE 5 MG/5 ML VIAL IVPUSH ONE (13:10)
--- NOTE | 2016-06-22 13:13 | PN ---
Teaching Attending Note Name of Resident: Maurice Ruffin ATTENDING PHYSICIAN STATEMENT I saw and evaluated the patient. I reviewed the resident's note and discussed the case with the resident. I agree with the resident's findings and plan as documented. SUBJECTIVE: Patient is comfortable with no acute distress, s/p stress test today. OBJECTIVE: Vital Signs Temperature 98.1 F 06/22/16 08:30 Pulse Rate 63 06/22/16 08:30 Respiratory Rate 18 06/22/16 09:00 Blood Pressure 169/69 06/22/16 08:30 O2 Sat by Pulse Oximetry (%) 95 06/22/16 09:00 GENERAL: Awake, alert, and fully oriented, in no acute distress. HEAD: Normal with no signs of trauma. EYES: Pupils equal, round and reactive to light, extraocular movements intact, sclera anicteric, conjunctiva clear. EARS, NOSE, THROAT: Ears normal, oropharynx clear without exudates. Moist mucous membranes. NECK: Normal range of motion, supple without lymphadenopathy, JVD, or masses. LUNGS: decreased BS sounds at the basis, no R/R/W. Left thoracentesis site dressing clean and dry. HEART: Regular rate and rhythm, normal S1 and S2, soft systolic murmur, ABDOMEN: Soft, nontender, not distended, normoactive bowel sounds, no guarding, no rebound, no masses. No hepatomegaly or splenomegaly. MUSCULOSKELETAL: Normal range of motion at all joints. No bony deformities or tenderness. EXTREMITIES: 2+ pulses, warm, well-perfused. No calf tenderness, no edema. NEUROLOGICAL: Cranial nerves II-XII intact. Normal speech. Normal gait. PSYCHIATRIC: Cooperative. Good eye contact. Appropriate mood and affect. SKIN: Warm, dry, normal turgor, no rashes or lesions noted. CBCD WBC 6.1 K/mm3 (4.0-10.0) 06/21/16 05:48 RBC 3.15 M/mm3 (3.60-5.2) L 06/21/16 05:48 Hgb 8.6 GM/dL (10.7-15.3) L 06/21/16 05:48 Hct 26.8 % (32.4-45.2) L 06/21/16 05:48 MCV 85.1 fl (80-96) 06/21/16 05:48 MCHC 32.0 g/dl (32.0-36.0) 06/21/16 05:48 RDW 15.4 % (11.6-15.6) 06/21/16 05:48 Plt Count 199 K/MM3 (134-434) 06/21/16 05:48 MPV 8.9 fl (7.5-11.1) 06/21/16 05:48 CMP Sodium 138 mmol/L (136-145) 06/22/16 05:35 Potassium 4.4 mmol/L (3.5-5.1) 06/22/16 05:35 Chloride 104 mmol/L (98-107) 06/22/16 05:35 Carbon Dioxide 16 mmol/L (21-32) L 06/22/16 05:35 Anion Gap 18 (8-16) H 06/22/16 05:35 BUN 141 mg/dL (7-18) H* 06/22/16 05:35 Creatinine 6.3 mg/dL (0.55-1.02) H 06/22/16 05:35 Creat Clearance w eGFR 10.32 (>60) 06/19/16 05:45 Random Glucose 98 mg/dL (74-106) 06/22/16 05:35 Calcium 7.7 mg/dL (8.5-10.1) L 06/22/16 05:35 Total Bilirubin 0.7 mg/dL (0.2-1.0) D 06/19/16 05:45 AST 18 U/L (15-37) D 06/19/16 05:45 ALT 38 U/L (12-78) 06/19/16 05:45 Alkaline Phosphatase 66 U/L (45-117) 06/19/16 05:45 Total Protein 6.5 g/dl (6.4-8.2) 06/19/16 05:45 Albumin 2.8 g/dl (3.4-5.0) L 06/19/16 05:45 CARDIAC ENZYMES Creatine Kinase 142 IU/L (26-192) 06/18/16 19:30 Troponin I 0.06 ng/ml (0.00-0.05) H 06/20/16 05:50 Current Medications Generic Name Dose Route Start Last Admin Trade Name Freq PRN Reason Stop Dose Admin Acetaminophen 650 mg 06/18/16 14:20 Tylenol - PO Q6H PRN FEVER OR PAIN Amlodipine Besylate 5 mg 06/18/16 22:00 06/21/16 22:15 Norvasc - PO 5 mg BID SHERITA Administration Aspirin 81 mg 06/19/16 10:00 06/21/16 09:25 Asa - PO 81 mg DAILY SHERITA Administration Atorvastatin Calcium 10 mg 06/18/16 22:00 06/21/16 22:15 Lipitor - PO 10 mg HS [facility]ERITA Administration Carvedilol 25 mg 06/20/16 14:04 06/21/16 22:15 Coreg - PO 25 mg BID SHERITA Administration Docusate Sodium 100 mg 06/18/16 22:00 06/22/16 06:27 Colace - PO Not Given TID [facility] Heparin Sodium (Porcine) 5,000 unit 06/18/16 22:00 06/21/16 22:16 Heparin - SQ 5,000 unit BID [facility]ER[facility] Administration Hydralazine HCl 50 mg 06/20/16 14:00 06/22/16 06:26 Apresoline - PO Not Given TID [facility] Levothyroxine Sodium 50 mcg 06/22/16 07:00 06/22/16 06:27 Synthroid - PO Not Given DAILY@0700 [facility] Ondansetron HCl 4 mg 06/18/16 14:20 Zofran Injection IVPB Q6H PRN NAUSEA Sertraline HCl 50 mg 06/18/16 22:00 06/21/16 22:15 Zoloft - PO 50 mg HS SHERITA Administration Sodium Bicarbonate 650 mg 06/18/16 15:45 06/22/16 06:27 Sodium Bicarbonate - PO Not Given TID [facility] Medication Instructions Recorded Amlodipine Besylate [Norvasc -] 5 mg PO BID 06/18/16 Aspirin [ASA -] 81 mg PO WEEKLY 06/18/16 Atorvastatin Ca [Lipitor] 10 mg PO HS 06/18/16 Carvedilol [Coreg] 12.5 mg PO BID 06/18/16 Enalapril Maleate [Vasotec] 20 mg PO BID 06/18/16 Hydrochlorothiazide 25 mg PO Q8H 06/18/16 Levothyroxine [Synthroid -] 25 mcg PO DAILY 06/18/16 Sertraline HCl [Zoloft] 50 mg PO HS 06/18/16 ASSESSMENT AND PLAN: This is an 86-year-old woman with a history of dementia, HTN, MVP, hyperlipidemia, hypothyroidism, diastolic CHF, [employer]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 Patient went for stress test waiting for the result now. Gi Asst # Acute kidney injury on stage 4 CKD with worsening renal function even more today ,discussed with ,will start the patient on IVf, will hold torsemide and Vasotec ; , possible HD id no improvement with her kidney function on Bicarb. Still making urine. Renal US shows atrophic and echogenic kidneys ;continue to monitor BUN/ creatinine. # Acute on chronic diastolic heart failure secondary to fluid overload improving s/p Lasix IV x 1 in ER, No evidence of pneumonia, Echo at [facility] showed normal LV systolic function, concentric LVH ;continue Coreg, Norvasc, Torsemide, Hydralazine # Hypertension uncontrolled continue Norvasc 5mg bid, Coreg increased to 25mg bid , Increased Hydralazine 50mg tid ,Vasotec is on hold secondary to SARAI with hyperkalemia also on Torsemide discontinued. # Hypothyroidism ;Increased the dose of Synthroid to 50mcg since patient is having symptoms of hypothyroidism, sleeps all the time, does not want to get out of bed, c/o having constipation. increased to 50mcg. level of TSH 0.08 # Hyperlipidemia continue Lipitor # Non-sustained ventricular tachycardia continue to monitor electrolytes, magnesium all WNL; keep mag level of 2.0 and potassium of level 4.0.also monitor Kidney function since has stage 4 CKD. DVT Px: Heparin Sq
[2016-06-22] MEDS: amLODIPine BESYLATE 5 MG TABLET (FP) PO SCH ×2 (13:42→21:13)
[2016-06-22] MEDS: CARVEDILOL 12.5 MG TABLET (FP) PO SCH ×2 (13:42→21:12)
[2016-06-22] MEDS: ASPIRIN 81 MG CHEWABLE TABLETS PO SCH (14:23)
[2016-06-22] MEDS: HEPARIN NA (PORCINE) 5,000 UNITS/ML 1ML VIAL SQ SCH ×2 (14:25→21:14)
[2016-06-22] MEDS: ATORVASTATIN CA 10 MG TABLET (FP) PO SCH (21:12)
[2016-06-22] MEDS: SERTRALINE HCL 50 MG TABLET (FP) PO SCH (21:12)
[2016-06-23] MEDS: SODIUM BICARBONATE 650 MG TABLET PO SCH ×3 (06:12→21:56)
[2016-06-23] MEDS: DOCUSATE SODIUM 100 MG CAPSULE (FP) PO SCH ×3 (06:12→21:56)
[2016-06-23] MEDS: hydrALAZINE HCL 50 MG TABLET (FP) PO SCH ×3 (06:12→21:56)
[2016-06-23] MEDS: LEVOTHYROXINE NA 50 MCG TABLET (FP) PO SCH (06:12)
[2016-06-23] MEDS: CARVEDILOL 12.5 MG TABLET (FP) PO SCH ×2 (06:14→10:32)
[2016-06-23 08:39] LABS: CALCIUM 7.7 mg/dL (8.5-10.1)
[2016-06-23] MEDS: amLODIPine BESYLATE 5 MG TABLET (FP) PO SCH ×2 (10:35→21:56)
[2016-06-23] MEDS: HEPARIN NA (PORCINE) 5,000 UNITS/ML 1ML VIAL SQ SCH ×2 (10:35→21:56)
[2016-06-23] MEDS: ASPIRIN 81 MG CHEWABLE TABLETS PO SCH (10:35)
--- NOTE | 2016-06-23 12:34 | PN ---
Progress Note, Physician History of Present Illness: Pt seen and examined at bedside. She is awake and alert. Her sons are at bedside. HD was discussed with them at length. SHe denies shortness of breath today while at rest. She does get SOB on ambulation. - Current Medication List Current Medications: Active Medications Acetaminophen (Tylenol -) 650 mg PO Q6H PRN PRN Reason: FEVER OR PAIN Amlodipine Besylate (Norvasc -) 5 mg PO BID [facility] Last Admin: 06/23/16 10:35 Dose: 5 mg Aspirin (Asa -) 81 mg PO DAILY [facility] Last Admin: 06/23/16 10:35 Dose: 81 mg Atorvastatin Calcium (Lipitor -) 10 mg PO [facility] Last Admin: 06/22/16 21:12 Dose: 10 mg Carvedilol (Coreg -) 25 mg PO BID [facility] Last Admin: 06/23/16 10:32 Dose: 25 mg Docusate Sodium (Colace -) 100 mg PO TID [facility] Last Admin: 06/23/16 06:12 Dose: 100 mg Heparin Sodium (Porcine) (Heparin -) 5,000 unit SQ BID [facility] Last Admin: 06/23/16 10:35 Dose: 5,000 unit Hydralazine HCl (Apresoline -) 50 mg PO TID [facility] Last Admin: 06/23/16 06:12 Dose: 50 mg Levothyroxine Sodium (Synthroid -) 12.5 mcg PO DAILY@0700 [facility] Ondansetron HCl (Zofran Injection) 4 mg IVPB Q6H PRN PRN Reason: NAUSEA Sertraline HCl (Zoloft -) 50 mg PO [facility] Last Admin: 06/22/16 21:12 Dose: 50 mg Sodium Bicarbonate (Sodium Bicarbonate -) 650 mg PO TID [facility] Last Admin: 06/23/16 06:12 Dose: 650 mg - Objective Vital Signs: Vital Signs Temperature 97.5 F L 06/23/16 08:20 Pulse Rate 62 06/23/16 08:20 Respiratory Rate 18 06/23/16 08:21 Blood Pressure 147/87 06/23/16 08:20 O2 Sat by Pulse Oximetry (%) 92 L 06/23/16 08:21 Constitutional: Yes: Calm Eyes: Yes: Conjunctiva Clear HENT: Yes: Atraumatic Neck: Yes: Supple Cardiovascular: Yes: S1, S2 Respiratory: Yes: On Nasal O2, SOB on Exertion Gastrointestinal: Yes: Soft Musculoskeletal: Yes: WNL Extremities: Yes: WNL Edema: Yes Edema: LLE: Trace, RLE: Trace Neurological: Yes: Oriented Psychiatric: Yes: Oriented Labs: CBC, BMP 06/21/16 05:48 06/23/16 05:35 Problem List - Problems (1) Acute renal failure Code(s): N17.9 - ACUTE KIDNEY FAILURE, UNSPECIFIED (2) CHF (congestive heart failure) Code(s): I50.9 - HEART FAILURE, UNSPECIFIED (3) Hypertension Code(s): I10 - ESSENTIAL (PRIMARY) HYPERTENSION (4) Hypothyroidism Code(s): E03.9 - HYPOTHYROIDISM, UNSPECIFIED Qualifiers: Hypothyroidism type: unspecified Qualified Code(s): E03.9 - Hypothyroidism, unspecified (5) Shortness of breath Code(s): R06.02 - SHORTNESS OF BREATH (6) Chronic kidney disease (CKD) Code(s): N18.9 - CHRONIC KIDNEY DISEASE, UNSPECIFIED Assessment/Plan Current Medications Generic Name Dose Route Start Last Admin Trade Name Freq PRN Reason Stop Dose Admin Acetaminophen 650 mg 06/18/16 14:20 Tylenol - PO Q6H PRN FEVER OR PAIN Amlodipine Besylate 5 mg 06/18/16 22:00 06/23/16 10:35 Norvasc - PO 5 mg BID [facility] Administration Aspirin 81 mg 06/19/16 10:00 06/23/16 10:35 Asa - PO 81 mg DAILY [facility] Administration Atorvastatin Calcium 10 mg 06/18/16 22:00 06/22/16 21:12 Lipitor - PO 10 mg HS [facility]ERITA Administration Carvedilol 25 mg 06/20/16 14:04 06/23/16 10:32 Coreg - PO 25 mg BID [facility] Administration Docusate Sodium 100 mg 06/18/16 22:00 06/23/16 06:12 Colace - PO 100 mg TID [facility] Administration Heparin Sodium (Porcine) 5,000 unit 06/18/16 22:00 06/23/16 10:35 Heparin - SQ 5,000 unit BID [facility] Administration Hydralazine HCl 50 mg 06/20/16 14:00 06/23/16 06:12 Apresoline - PO 50 mg TID [facility] Administration Levothyroxine Sodium 12.5 mcg 06/24/16 07:00 Synthroid - PO DAILY@0700 [facility] Ondansetron HCl 4 mg 06/18/16 14:20 Zofran Injection IVPB Q6H PRN NAUSEA Sertraline HCl 50 mg 06/18/16 22:00 06/22/16 21:12 Zoloft - PO 50 mg HS [facility] Administration Sodium Bicarbonate 650 mg 06/18/16 15:45 06/23/16 06:12 Sodium Bicarbonate - PO 650 mg TID [facility] Administration Torsemide 40 mg 06/23/16 12:30 Demadex - PO DAILY [facility] Impression 1. CKD 2. SARAI 3. HTN 4. CHF 5. pleural effusion 6. hypothyroidism 7. hyperlipidemia 8. MVP Plan - discussed renal function and HD with family and pt at great length and in detail. They would like to hold off HD for the meantime and try medical management. They will consider HD again in the near future. - discussed care with medical team - resume demadex - check bmp in am - daily weights - cont pt/rehab - renal diet - check phos levels - discussed with cardio - monitor BP - potassium is improved - cont with bicarb - time spent on case over 1:20 Dr Hernandez
[2016-06-23] MEDS: TORSEMIDE 20 MG TABLET (FP) PO SCH (14:36)
--- NOTE | 2016-06-23 15:04 | PN ---
Physical Exam: SUBJECTIVE: Patient seen and examined, patient feels better. patient denies chest pain sob, OBJECTIVE: Vital Signs Period Temp Pulse Resp BP Sys/Alan Pulse Ox Last 24 Hr 97 F-99 F 54-67 18-20 115-177/46-100 92-95 GENERAL: The patient is awake, alert, and fully oriented, in no acute distress. HEAD: Normal with no signs of trauma. NECK: Full range of motion, supple. LUNGS: Breath sounds equal. no rale, no crackles, no wheeze HEART: Regular rate and rhythm, S1, S2 , murmur present ABDOMEN: Soft, nontender, nondistended, normoactive bowel sounds, no guarding, no rebound, no hepatosplenomegaly, no masses. EXTREMITIES: 2+ pulses, warm, well-perfused, no pedal edema Laboratory Results - last 24 hr 06/23/16 05:35 Sodium 136 Potassium 4.3 Chloride 103 Carbon Dioxide 19 L Anion Gap 14 BUN 138 H* Creatinine 6.0 H Random Glucose 94 Calcium 7.7 L Active Medications Generic Name Dose Route Start Last Admin Trade Name Freq PRN Reason Stop Dose Admin Acetaminophen 650 mg 06/18/16 14:20 Tylenol - PO Q6H PRN FEVER OR PAIN Amlodipine Besylate 5 mg 06/18/16 22:00 06/23/16 10:35 Norvasc - PO 5 mg BID [facility] Administration Aspirin 81 mg 06/19/16 10:00 06/23/16 10:35 Asa - PO 81 mg DAILY [facility] Administration Atorvastatin Calcium 10 mg 06/18/16 22:00 06/22/16 21:12 Lipitor - PO 10 mg HS [facility] Administration Carvedilol 25 mg 06/20/16 14:04 06/23/16 10:32 Coreg - PO 25 mg BID [facility] Administration Docusate Sodium 100 mg 06/18/16 22:00 06/23/16 14:35 Colace - PO 100 mg TID [facility] Administration Heparin Sodium (Porcine) 5,000 unit 06/18/16 22:00 06/23/16 10:35 Heparin - SQ 5,000 unit BID [facility] Administration Hydralazine HCl 50 mg 06/20/16 14:00 06/23/16 14:35 Apresoline - PO 50 mg TID [facility] Administration Levothyroxine Sodium 12.5 mcg 12/29/16 07:00 Synthroid - PO DAILY@0700 [facility] Ondansetron HCl 4 mg 06/18/16 14:20 Zofran Injection IVPB Q6H PRN NAUSEA Sertraline HCl 50 mg 06/18/16 22:00 06/22/16 21:12 Zoloft - PO 50 mg HS [facility] Administration Sodium Bicarbonate 650 mg 06/18/16 15:45 06/23/16 14:35 Sodium Bicarbonate - PO 650 mg TID [facility] Administration Torsemide 40 mg 06/23/16 12:30 06/23/16 14:36 Demadex - PO 40 mg DAILY [facility] Administration ASSESSMENT/PLAN: This is an 86-year-old woman with a history of dementia, HTN, MVP, hyperlipidemia, hypothyroidism, diastolic CHF, [employer]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 1. Acute diastolic heart failure - chest clear , mild jvp distension, no pedal edema - on coreg 25 bid , hydralazine 50 tid and norvasc 5mg bid - cardiology on case - patient had elevated trop i during admission, probably go for stress test tomorrow 2. Acute kidney injury on stage 4 CKD - could be due to over diuresis in her previous admission in [facility], base line creat 3.0 -Renal function continues to worsen cr 6. - Nephrology consult appreciated;: pateint family continue with medication, started on demadex 40mg daily -c/w bicarb 3. Chronic diastolic heart failure - Continue Coreg, Norvasc 4. uncontrolled Hypertension - 147/87, controlled - Continue Norvasc 5 bid , Coreg 25 bid - will increase hydralazine 50 tid - Vasotec held secondary to SARAI with hyperkalemia 5. Hypothyroidism - tsh 0.08, t4 normal synthyroid decreased to 12.5 6. Hyperlipidemia - Continue Lipitor 7 constipation colace 100mg tid fluid : orally allowed electrolyte nutrition : renal diet dvt pro on heparin Dispo admit in med surg Visit type - Emergency Visit Emergency Visit: Yes ED Registration Date: 06/18/16 Care time: The patient presented to the Emergency Department on the above date and was hospitalized for further evaluation of their emergent condition. - New Patient This patient is new to me today: No - Critical Care Critical Care patient: No
--- NOTE | 2016-06-23 15:32 | PN ---
Progress Note, Physician History of Present Illness: Denies dyspnea, orthopnea, LE edema. Stress testing neg for ischemia. - Current Medication List Current Medications: Active Medications Acetaminophen (Tylenol -) 650 mg PO Q6H PRN PRN Reason: FEVER OR PAIN Amlodipine Besylate (Norvasc -) 5 mg PO BID [facility] Last Admin: 06/23/16 10:35 Dose: 5 mg Aspirin (Asa -) 81 mg PO DAILY [facility] Last Admin: 06/23/16 10:35 Dose: 81 mg Atorvastatin Calcium (Lipitor -) 10 mg PO HS [facility] Last Admin: 06/22/16 21:12 Dose: 10 mg Carvedilol (Coreg -) 25 mg PO BID [facility] Last Admin: 06/23/16 10:32 Dose: 25 mg Docusate Sodium (Colace -) 100 mg PO TID [facility] Last Admin: 06/23/16 14:35 Dose: 100 mg Heparin Sodium (Porcine) (Heparin -) 5,000 unit SQ BID [facility] Last Admin: 06/23/16 10:35 Dose: 5,000 unit Hydralazine HCl (Apresoline -) 50 mg PO TID [facility] Last Admin: 06/23/16 14:35 Dose: 50 mg Levothyroxine Sodium (Synthroid -) 12.5 mcg PO DAILY@0700 [facility] Ondansetron HCl (Zofran Injection) 4 mg IVPB Q6H PRN PRN Reason: NAUSEA Sertraline HCl (Zoloft -) 50 mg PO HS [facility] Last Admin: 06/22/16 21:12 Dose: 50 mg Sodium Bicarbonate (Sodium Bicarbonate -) 650 mg PO TID [facility] Last Admin: 06/23/16 14:35 Dose: 650 mg Torsemide (Demadex -) 40 mg PO DAILY [facility] Last Admin: 06/23/16 14:36 Dose: 40 mg - Objective Vital Signs: Vital Signs Temperature 97.8 F 06/23/16 14:39 Pulse Rate 54 L 06/23/16 14:39 Respiratory Rate 18 06/23/16 14:39 Blood Pressure 142/46 06/23/16 14:39 O2 Sat by Pulse Oximetry (%) 92 L 06/23/16 08:21 Constitutional: Yes: No Distress, Calm Neck: Yes: Supple Cardiovascular: Yes: Regular Rate and Rhythm Respiratory: Yes: Regular, Diminished Gastrointestinal: Yes: Normal Bowel Sounds, Soft Edema: No Labs: CBC, BMP 06/21/16 05:48 06/23/16 05:35 Problem List - Problems (1) Hypothyroidism Code(s): E03.9 - HYPOTHYROIDISM, UNSPECIFIED Qualifiers: Hypothyroidism type: unspecified Qualified Code(s): E03.9 - Hypothyroidism, unspecified (2) Shortness of breath Code(s): R06.02 - SHORTNESS OF BREATH (3) Acute on chronic diastolic (congestive) heart failure Code(s): I50.33 - ACUTE ON CHRONIC DIASTOLIC (CONGESTIVE) HEART FAILURE (4) Hypertensive urgency Code(s): I10 - ESSENTIAL (PRIMARY) HYPERTENSION (5) Hyperlipidemia Code(s): E78.5 - HYPERLIPIDEMIA, UNSPECIFIED Qualifiers: Hyperlipidemia type: pure hypercholesterolemia Qualified Code(s): E78.0 - Pure hypercholesterolemia (6) Akxck-gh-zfuulzu kidney injury Code(s): N17.9 - ACUTE KIDNEY FAILURE, UNSPECIFIED N18.9 - CHRONIC KIDNEY DISEASE, UNSPECIFIED (7) Subendocardial ischemia Code(s): I24.8 - OTHER FORMS OF ACUTE ISCHEMIC HEART DISEASE (8) Anemia Code(s): D64.9 - ANEMIA, UNSPECIFIED Qualifiers: Other causes of anemia: chronic disease, kidney Assessment/Plan Echo: Normal LV size and function; concentric left ventricular hypertrophy, E/A reversal consisted with decreased LV diastolic compliance. 06/22/2016 P-Myoview: No ischemia, LVEF 59% 1. Improving acute on chronic diastolic failure in context of 2. Hypertensive urgency resolved 3. Acute on CKD 4 4. MVP 5. Hyperlipidemia 6. Symptomatic hypothyroidism with abnormal TSH 7. Hydrocephelus post CARD GRADER shunt 8. Non-sustained VT 9. Anemia of chronic kidney disease 10. Subendocardial ischemia P:1. Resumed Demadex 40 qd with monitor diuretic response, renal fxn and electrolytes, discussion regarding HD ongoing with renal 2. Continue carvedilol 25 bid, continue ASA 81 qd, Norvasc 5 bid, Lipitor 10 qhs , hydralazine 50 tid, hold Vasotec pending renal recovery, added Imdur 30 qd for additional BP control 3. Ischemia w/u once euvolemic, DVT prophylaxis 4. DVT prophylaxis 1
[2016-06-23] MEDS: ISOSORBIDE MONONITRATE 30 MG TAB.SR.24H (FP) PO SCH (17:55)
--- NOTE | 2016-06-23 18:51 | PN ---
Teaching Attending Note Name of Resident: Maurice Ruffin ATTENDING PHYSICIAN STATEMENT I saw and evaluated the patient. I reviewed the resident's note and discussed the case with the resident. I agree with the resident's findings and plan as documented. SUBJECTIVE: no fever or chills. no SOB. no cough . OBJECTIVE: NAD . awake , pleasant CV: RRR. 2/6 SM at [facility] , LUSB , with radiation to carotids . Lungs : CTAB ext : no edema ASSESSMENT AND PLAN: 86 y/o lady with h/o dementia , HTN , HL , D CHF , BUILDING APPRAISER shunt , CKD 4, recent admission to OSH where she was treated with diuresis with resultant SARAI . she presented with SOB , was found to have cr above base line , with D CHF , worsening renal failure and trop leak 1- SARAI : likely due to prerenal azotemia superimposed on CKD from over diuresis initially at OSH and then from DCHF here . Fe Urea 34.4 % . renal US with no obstruction . cr responded to Diuresis then worsened when held - d/w Dr. García start demadex 40 mg daily - dambelinda refused HD at this time - cont to hold ACEI , and HCTZ . 2- Acute D CHF : - cont diuresis 3- Trop leak : ? NSTEMI VS due to renal failure - stress test with fixed anterior defect . - cont imdur , and coreg . - cont HZN and Norvasc . 4- HTN : cont current meds 5- h/o hypothyroidism : with decreased TSH. synthroid dose was increased this admission from 25 to 50. will decreased to 12.5 . repeat TFTs in 6-8 weeks 6- DVT : heparin sq Current Medications Generic Name Dose Route Start Last Admin Trade Name Freq PRN Reason Stop Dose Admin Acetaminophen 650 mg 06/18/16 14:20 Tylenol - PO Q6H PRN FEVER OR PAIN Amlodipine Besylate 5 mg 06/18/16 22:00 06/23/16 10:35 Norvasc - PO 5 mg BID SHERITA Administration Aspirin 81 mg 06/19/16 10:00 06/23/16 10:35 Asa - PO 81 mg DAILY SHERITA Administration Atorvastatin Calcium 10 mg 06/18/16 22:00 06/22/16 21:12 Lipitor - PO 10 mg HS SHERITA Administration Carvedilol 25 mg 06/20/16 14:04 06/23/16 10:32 Coreg - PO 25 mg BID SHERITA Administration Docusate Sodium 100 mg 06/18/16 22:00 06/23/16 14:35 Colace - PO 100 mg TID SHERITA Administration Heparin Sodium (Porcine) 5,000 unit 06/18/16 22:00 06/23/16 10:35 Heparin - SQ 5,000 unit BID SHERITA Administration Hydralazine HCl 50 mg 06/20/16 14:00 06/23/16 14:35 Apresoline - PO 50 mg TID SHERITA Administration Isosorbide Mononitrate 30 mg 06/23/16 15:45 06/23/16 17:55 Imdur - PO 30 mg DAILY SHERITA Administration Levothyroxine Sodium 12.5 mcg 06/24/16 07:00 Synthroid - PO DAILY@0700 [facility]ER[facility] Ondansetron HCl 4 mg 06/18/16 14:20 Zofran Injection IVPB Q6H PRN NAUSEA Sertraline HCl 50 mg 06/18/16 22:00 06/22/16 21:12 Zoloft - PO 50 mg HS SHERITA Administration Sodium Bicarbonate 650 mg 06/18/16 15:45 06/23/16 14:35 Sodium Bicarbonate - PO 650 mg TID SHERITA Administration Torsemide 40 mg 06/23/16 12:30 06/23/16 14:36 Demadex - PO 40 mg DAILY SHERITA Administration
[2016-06-23] MEDS: SERTRALINE HCL 50 MG TABLET (FP) PO SCH (21:56)
[2016-06-23] MEDS: ATORVASTATIN CA 10 MG TABLET (FP) PO SCH (21:56)
[2016-06-24] MEDS: hydrALAZINE HCL 50 MG TABLET (FP) PO SCH ×3 (06:04→21:34)
[2016-06-24] MEDS: DOCUSATE SODIUM 100 MG CAPSULE (FP) PO SCH ×3 (06:04→21:34)
[2016-06-24] MEDS: LEVOTHYROXINE NA 25 MCG TABLET (FP) PO SCH (06:05)
[2016-06-24] MEDS: CARVEDILOL 12.5 MG TABLET (FP) PO SCH ×3 (06:06→21:35)
[2016-06-24] MEDS: SODIUM BICARBONATE 650 MG TABLET PO SCH ×3 (06:06→21:35)
[2016-06-24 08:41] LABS: CALCIUM 7.7 mg/dL (8.5-10.1); CREATININE 6.4 mg/dL (0.55-1.02)
[2016-06-24] MEDS: ASPIRIN 81 MG CHEWABLE TABLETS PO SCH (09:02)
[2016-06-24] MEDS: HEPARIN NA (PORCINE) 5,000 UNITS/ML 1ML VIAL SQ SCH ×2 (09:03→21:35)
[2016-06-24] MEDS: TORSEMIDE 20 MG TABLET (FP) PO SCH (09:03)
[2016-06-24] MEDS: ISOSORBIDE MONONITRATE 30 MG TAB.SR.24H (FP) PO SCH (09:03)
[2016-06-24] MEDS: amLODIPine BESYLATE 5 MG TABLET (FP) PO SCH ×2 (09:03→21:35)
[2016-06-24 09:11] LABS: PHOSPHOROUS 7.6 mg/dL (2.5-4.9)
[2016-06-24] MEDS ORDERED: TORSEMIDE 20 MG TABLET (FP) PO SCH (10:00)
[2016-06-24] MEDS ORDERED: ISOSORBIDE MONONITRATE 30 MG TAB.SR.24H (FP) PO SCH (10:00)
--- NOTE | 2016-06-24 11:21 | PN ---
Progress Note, Physician Chief Complaint: Events noted Not in distress at the moment History of Present Illness: Patient was seen and examined. Awake and alert. Chart was reviewed Discussed with son by bedside. Patient likely needs to be initiated on HD Denies chest pain, SOB or palpitations - Current Medication List Current Medications: Active Medications Acetaminophen (Tylenol -) 650 mg PO Q6H PRN PRN Reason: FEVER OR PAIN Amlodipine Besylate (Norvasc -) 5 mg PO BID [facility] Last Admin: 06/24/16 09:03 Dose: 5 mg Aspirin (Asa -) 81 mg PO DAILY [facility] Last Admin: 06/24/16 09:02 Dose: 81 mg Atorvastatin Calcium (Lipitor -) 10 mg PO HS [facility] Last Admin: 06/23/16 21:56 Dose: 10 mg Carvedilol (Coreg -) 25 mg PO BID [facility] Last Admin: 06/24/16 09:03 Dose: 25 mg Docusate Sodium (Colace -) 100 mg PO TID [facility] Last Admin: 06/24/16 06:04 Dose: 100 mg Heparin Sodium (Porcine) (Heparin -) 5,000 unit SQ BID [facility] Last Admin: 06/24/16 09:03 Dose: 5,000 unit Hydralazine HCl (Apresoline -) 50 mg PO TID [facility] Last Admin: 06/24/16 06:04 Dose: 50 mg Isosorbide Mononitrate (Imdur -) 30 mg PO DAILY [facility] Last Admin: 06/24/16 09:03 Dose: 30 mg Levothyroxine Sodium (Synthroid -) 12.5 mcg PO DAILY@0700 [facility] Last Admin: 06/24/16 06:05 Dose: 12.5 mcg Ondansetron HCl (Zofran Injection) 4 mg IVPB Q6H PRN PRN Reason: NAUSEA Sertraline HCl (Zoloft -) 50 mg PO HS [facility] Last Admin: 06/23/16 21:56 Dose: 50 mg Sodium Bicarbonate (Sodium Bicarbonate -) 650 mg PO TID [facility] Last Admin: 06/24/16 06:06 Dose: 650 mg Torsemide (Demadex -) 40 mg PO DAILY [facility] Last Admin: 06/24/16 09:03 Dose: 40 mg - Objective Vital Signs: Vital Signs Temperature 98 F 06/24/16 06:02 Pulse Rate 66 06/24/16 10:00 Respiratory Rate 20 06/24/16 10:00 Blood Pressure 180/51 06/24/16 10:00 O2 Sat by Pulse Oximetry (%) 94 L 06/24/16 10:00 Neck: Yes: Supple Cardiovascular: Yes: Regular Rate and Rhythm, S1, S2 Respiratory: Yes: Diminished Gastrointestinal: Yes: Normal Bowel Sounds, Soft. No: Tenderness Edema: No Additional Findings/Remarks: Review of Systems Constitutional: denies: chills, fever Cardiovascular: denies: chest pain, shortness of breath, palpitation Respiratory: denies: cough, sputum production, hemoptysis Gastrointestinal: denies: nausea, vomiting, diarrhea, constipation or abdominal pain Genitourinary: No symptoms reported Musculoskeletal: No symptoms reported Labs: 06/24/16 06:00 Assessment/Plan 1. Improving acute on chronic diastolic failure 2. Hypertension 3. Acute on CKD - elevated BUN/creatinine 4. MVP 5. Hyperlipidemia 6. Hypothyroidism 7. Hydrocephelus post SHEAR HELPER shunt 8. Non-sustained VT PLAN: 1. Continue Demadex with monitoring renal function and electrolytes. Renal service to follow up in regards to decision of HD 2. Continue Carvedilol 25 mg BID, ASA 81 mg QD, Norvasc 5 mg BID, Lipitor 10 mg QHS, Hydralazine 50 mg TID and Imdur 30 mg QD. Patient is not on ACEI due to renal disease 3. DVT prophylaxis Further plans are to follow Vladimir Herman MD
--- NOTE | 2016-06-24 14:34 | PN ---
Physical Exam: SUBJECTIVE: Patient seen and examined, patient feels better, denies sob, chest pain, dizziness, lightheadedness OBJECTIVE: Vital Signs Period Temp Pulse Resp BP Sys/Alan Pulse Ox Last 24 Hr 97.8 F-98.2 F 54-66 18-20 130-180/46-70 92-94 GENERAL: The patient is awake, alert, and fully oriented, in no acute distress. HEAD: Normal with no signs of trauma. NECK: Full range of motion, supple. LUNGS: Breath sounds equal. no rale, no crackles, no wheeze HEART: s1s2 normal, as murmur present radiating to neck ABDOMEN: Soft, nontender, nondistended, normoactive bowel sounds, no guarding, no rebound, no hepatosplenomegaly, no masses. EXTREMITIES: 2+ pulses, warm, well-perfused, no pedal edema Laboratory Results - last 24 hr 06/24/16 06:00 Sodium 137 Potassium 4.2 Chloride 104 Carbon Dioxide 19 L Anion Gap 14 BUN 144 H* Creatinine 6.4 H Random Glucose 95 Calcium 7.7 L Phosphorus 7.6 H D Triglycerides 112 Cholesterol 116 Total LDL Cholesterol 82 HDL Cholesterol 35 L Active Medications Generic Name Dose Route Start Last Admin Trade Name Freq PRN Reason Stop Dose Admin Acetaminophen 650 mg 06/18/16 14:20 Tylenol - PO Q6H PRN FEVER OR PAIN Amlodipine Besylate 5 mg 06/18/16 22:00 06/24/16 09:03 Norvasc - PO 5 mg BID [facility]ER[facility] Administration Aspirin 81 mg 06/19/16 10:00 06/24/16 09:02 Asa - PO 81 mg DAILY SHERITA Administration Atorvastatin Calcium 10 mg 06/18/16 22:00 06/23/16 21:56 Lipitor - PO 10 mg HS SHERITA Administration Carvedilol 25 mg 06/20/16 14:04 06/24/16 09:03 Coreg - PO 25 mg BID SHERITA Administration Docusate Sodium 100 mg 06/18/16 22:00 06/24/16 06:04 Colace - PO 100 mg TID SHERITA Administration Heparin Sodium (Porcine) 5,000 unit 06/18/16 22:00 06/24/16 09:03 Heparin - SQ 5,000 unit BID SHERITA Administration Hydralazine HCl 50 mg 06/20/16 14:00 12/29/16 06:04 Apresoline - PO 50 mg TID SHERITA Administration Isosorbide Mononitrate 30 mg 06/23/16 15:45 06/24/16 09:03 Imdur - PO 30 mg DAILY SHERITA Administration Levothyroxine Sodium 12.5 mcg 06/24/16 07:00 06/24/16 06:05 Synthroid - PO 12.5 mcg DAILY@0700 SHERITA Administration Ondansetron HCl 4 mg 06/18/16 14:20 Zofran Injection IVPB Q6H PRN NAUSEA Sertraline HCl 50 mg 06/18/16 22:00 06/23/16 21:56 Zoloft - PO 50 mg HS SHERITA Administration Sodium Bicarbonate 650 mg 06/18/16 15:45 06/24/16 06:06 Sodium Bicarbonate - PO 650 mg TID SHERITA Administration Torsemide 40 mg 06/23/16 12:30 06/24/16 09:03 Demadex - PO 40 mg DAILY [facility]ERITA Administration ASSESSMENT/PLAN: This is an 86-year-old woman with a history of dementia, HTN, MVP, hyperlipidemia, hypothyroidism, diastolic CHF, HARD TILE SETTER shunt, and CKD 4 who presented with shortness of breath. 1. Acute diastolic heart failure - chest clear , no pedal edema - on coreg 25 bid , hydralazine 50 tid and norvasc 5mg bid , imdur 30 - cardiology on case 2. Acute kidney injury on stage 4 CKD - could be due to over diuresis in her previous admission in [facility], base line creat 3.0 -Renal function continues to worsen cr 6.3 - Nephrology consult appreciated;: pateint family continue with medication, started on demadex 40mg daily -c/w bicarb 3. Chronic diastolic heart failure - Continue Coreg, Norvasc 4. uncontrolled Hypertension - 180/52 controlled - Continue Norvasc 5 bid , Coreg 25 bid, - on hydralazine 50 tid, imdur 30 daily - Vasotec held secondary to SARAI with hyperkalemia - low salt diet - monitor blood pressure 5. Hypothyroidism - tsh 0.08, t4 normal synthyroid decreased to 12.5 6. Hyperlipidemia - Continue Lipitor 7 constipation colace 100mg tid fluid : orally allowed electrolyte nutrition : renal diet dvt pro on heparin Dispo admit in med surg Visit type - Emergency Visit Emergency Visit: Yes ED Registration Date: 06/18/16 Care time: The patient presented to the Emergency Department on the above date and was hospitalized for further evaluation of their emergent condition. - New Patient This patient is new to me today: No - Critical Care Critical Care patient: No
--- NOTE | 2016-06-24 15:56 | PN ---
Progress Note, Physician History of Present Illness: Pt seen and examined at bedside. She is awake and alert. She requires oxygen at rest. - Current Medication List Current Medications: Active Medications Acetaminophen (Tylenol -) 650 mg PO Q6H PRN PRN Reason: FEVER OR PAIN Amlodipine Besylate (Norvasc -) 5 mg PO BID [facility] Last Admin: 06/24/16 09:03 Dose: 5 mg Aspirin (Asa -) 81 mg PO DAILY [facility] Last Admin: 06/24/16 09:02 Dose: 81 mg Atorvastatin Calcium (Lipitor -) 10 mg PO HS [facility] Last Admin: 06/23/16 21:56 Dose: 10 mg Carvedilol (Coreg -) 25 mg PO BID [facility] Last Admin: 06/24/16 09:03 Dose: 25 mg Docusate Sodium (Colace -) 100 mg PO TID [facility] Last Admin: 06/24/16 06:04 Dose: 100 mg Heparin Sodium (Porcine) (Heparin -) 5,000 unit SQ BID [facility] Last Admin: 06/24/16 09:03 Dose: 5,000 unit Hydralazine HCl (Apresoline -) 50 mg PO TID [facility] Last Admin: 06/24/16 06:04 Dose: 50 mg Isosorbide Mononitrate (Imdur -) 30 mg PO DAILY [facility] Last Admin: 06/24/16 09:03 Dose: 30 mg Levothyroxine Sodium (Synthroid -) 12.5 mcg PO DAILY@0700 [facility] Last Admin: 06/24/16 06:05 Dose: 12.5 mcg Ondansetron HCl (Zofran Injection) 4 mg IVPB Q6H PRN PRN Reason: NAUSEA Sertraline HCl (Zoloft -) 50 mg PO [facility] Last Admin: 06/23/16 21:56 Dose: 50 mg Sodium Bicarbonate (Sodium Bicarbonate -) 650 mg PO TID [facility] Last Admin: 06/24/16 06:06 Dose: 650 mg Torsemide (Demadex -) 40 mg PO DAILY [facility] Last Admin: 06/24/16 09:03 Dose: 40 mg - Objective Vital Signs: Vital Signs Temperature 98 F 06/24/16 06:02 Pulse Rate 66 06/24/16 10:00 Respiratory Rate 20 06/24/16 10:00 Blood Pressure 180/51 06/24/16 10:00 O2 Sat by Pulse Oximetry (%) 94 L 06/24/16 10:00 Constitutional: Yes: Calm Eyes: Yes: Conjunctiva Clear HENT: Yes: Atraumatic Neck: Yes: Supple Cardiovascular: Yes: S1, S2 Respiratory: Yes: CTA Bilaterally, On Nasal O2 Gastrointestinal: Yes: Normal Bowel Sounds, Soft Genitourinary: Yes: WNL Musculoskeletal: Yes: WNL Edema: Yes Edema: LLE: Trace, RLE: Trace Neurological: Yes: Oriented Psychiatric: Yes: Oriented Labs: CBC, BMP 06/21/16 05:48 06/24/16 06:00 Problem List - Problems (1) Acute renal failure Code(s): N17.9 - ACUTE KIDNEY FAILURE, UNSPECIFIED (2) CHF (congestive heart failure) Code(s): I50.9 - HEART FAILURE, UNSPECIFIED (3) Hypertension Code(s): I10 - ESSENTIAL (PRIMARY) HYPERTENSION (4) Hypothyroidism Code(s): E03.9 - HYPOTHYROIDISM, UNSPECIFIED Qualifiers: Hypothyroidism type: unspecified Qualified Code(s): E03.9 - Hypothyroidism, unspecified (5) Shortness of breath Code(s): R06.02 - SHORTNESS OF BREATH (6) Chronic kidney disease (CKD) Code(s): N18.9 - CHRONIC KIDNEY DISEASE, UNSPECIFIED Assessment/Plan Current Medications Generic Name Dose Route Start Last Admin Trade Name Freq PRN Reason Stop Dose Admin Acetaminophen 650 mg 06/18/16 14:20 Tylenol - PO Q6H PRN FEVER OR PAIN Amlodipine Besylate 5 mg 06/18/16 22:00 06/24/16 09:03 Norvasc - PO 5 mg BID SHERITA Administration Aspirin 81 mg 06/19/16 10:00 06/24/16 09:02 Asa - PO 81 mg DAILY SHERITA Administration Atorvastatin Calcium 10 mg 06/18/16 22:00 06/23/16 21:56 Lipitor - PO 10 mg HS SHERITA Administration Carvedilol 25 mg 06/20/16 14:04 06/24/16 09:03 Coreg - PO 25 mg BID SHERITA Administration Docusate Sodium 100 mg 06/18/16 22:00 06/24/16 06:04 Colace - PO 100 mg TID SHERITA Administration Heparin Sodium (Porcine) 5,000 unit 06/18/16 22:00 06/24/16 09:03 Heparin - SQ 5,000 unit BID SHERITA Administration Hydralazine HCl 50 mg 06/20/16 14:00 06/24/16 06:04 Apresoline - PO 50 mg TID SHERITA Administration Isosorbide Mononitrate 30 mg 06/23/16 15:45 06/24/16 09:03 Imdur - PO 30 mg DAILY SHERITA Administration Levothyroxine Sodium 12.5 mcg 06/24/16 07:00 06/24/16 06:05 Synthroid - PO 12.5 mcg DAILY@0700 SHERITA Administration Ondansetron HCl 4 mg 06/18/16 14:20 Zofran Injection IVPB Q6H PRN NAUSEA Sertraline HCl 50 mg 06/18/16 22:00 06/23/16 21:56 Zoloft - PO 50 mg HS SHERITA Administration Sodium Bicarbonate 650 mg 06/18/16 15:45 06/24/16 06:06 Sodium Bicarbonate - PO 650 mg TID SHERITA Administration Torsemide 40 mg 06/23/16 12:30 06/24/16 09:03 Demadex - PO 40 mg DAILY SHERITA Administration Laboratory Tests 06/24/16 06:00 Phosphorus 7.6 H D Impression 1. CKD 2. SARAI 3. HTN 4. CHF 5. pleural effusion 6. hypothyroidism 7. hyperlipidemia 8. MVP Plan - repeat labs in am - discussed HD again with family and they will likely agree for it tomorrow - will check cxr - cont demadex - check bmp in am - daily weights - cont pt/rehab - renal diet - start phos binders - cont with bicarb Dr Hernandez
--- NOTE | 2016-06-24 16:12 | PN ---
Teaching Attending Note Name of Resident: Maurice Ruffin ATTENDING PHYSICIAN STATEMENT I saw and evaluated the patient. I reviewed the resident's note and discussed the case with the resident. I agree with the resident's findings and plan as documented. SUBJECTIVE: no fever or chills, no OSB , no CP OBJECTIVE: 86 y/o lady with h/o dementia , HTN , HL , D CHF , CONTINUOUS [employer] MINER shunt , CKD 4, recent admission to OSH where she was treated with diuresis with resultant SARAI . she presented with SOB , was found to have cr above base line , with D CHF , worsening renal failure and trop leak 1- SARAI : likely due to prerenal azotemia superimposed on CKD from over diuresis initially at OSH and then from DCHF here . Fe Urea 34.4 % . renal US with no obstruction . renal function is worse today - cont diuresis wit close monitoring of renal function - likely will need HD soon if family agrees - cont to hold ACEI , and HCTZ . 2- Acute D CHF : - cont diuresis 3- Trop leak : ? NSTEMI VS due to renal failure - stress test with fixed anterior defect . - cont imdur , and coreg . - cont HZN and Norvasc . 4- HTN : cont current meds . imdur was added yesterday ,so will wait for appropriate response before adjusting meds 5- h/o hypothyroidism : with decreased TSH. cont decreased synthroid dose 6- DVT : heparin sq
[2016-06-24] MEDS: SEVELAMER CARBONATE 800 MG TAB (FP) PO SCH (18:39)
[2016-06-24] MEDS: ATORVASTATIN CA 10 MG TABLET (FP) PO SCH (21:35)
[2016-06-24] MEDS: SERTRALINE HCL 50 MG TABLET (FP) PO SCH (21:35)
[2016-06-25] MEDS: LEVOTHYROXINE NA 25 MCG TABLET (FP) PO SCH (06:35)
[2016-06-25] MEDS: SODIUM BICARBONATE 650 MG TABLET PO SCH ×2 (06:35→14:03)
[2016-06-25] MEDS: DOCUSATE SODIUM 100 MG CAPSULE (FP) PO SCH ×3 (06:35→22:31)
[2016-06-25] MEDS: hydrALAZINE HCL 50 MG TABLET (FP) PO SCH ×3 (06:35→22:32)
[2016-06-25 07:26] LABS: INR 1.05 (0.82-1.09); PROTHROMBIN TIME (PATIENT) 11.6 SEC (9.98-11.88)
[2016-06-25 08:00] LABS: CALCIUM 7.5 mg/dL (8.5-10.1); CREATININE 6.7 mg/dL (0.55-1.02)
[2016-06-25] MEDS: SEVELAMER CARBONATE 800 MG TAB (FP) PO SCH ×3 (08:07→22:32)
[2016-06-25] MEDS: TORSEMIDE 20 MG TABLET (FP) PO SCH (10:53)
[2016-06-25] MEDS: ASPIRIN 81 MG CHEWABLE TABLETS PO SCH (10:53)
[2016-06-25] MEDS: CARVEDILOL 12.5 MG TABLET (FP) PO SCH (10:53)
[2016-06-25] MEDS: HEPARIN NA (PORCINE) 5,000 UNITS/ML 1ML VIAL SQ SCH ×2 (10:54→22:32)
[2016-06-25] MEDS: amLODIPine BESYLATE 5 MG TABLET (FP) PO SCH ×2 (10:54→22:31)
[2016-06-25] MEDS: ISOSORBIDE MONONITRATE 30 MG TAB.SR.24H (FP) PO SCH (10:54)
--- NOTE | 2016-06-25 11:08 | PN ---
Progress Note (short form) - Note Progress Note: Vascular Surgery Pt for permacath insertion today. Pt is npo . Jay Rosales DO
[2016-06-25] MEDS ORDERED: HEPARIN NA (PORCINE) 5,000 UNITS/ML 1ML VIAL ONE (12:33)
[2016-06-25] MEDS ORDERED: DEXAMETHASONE SOD PHOSPHATE 4 MG/1 ML VIAL ONE (13:06)
[2016-06-25] MEDS ORDERED: ceFAZolin SODIUM 1 GM VIAL ONE (13:06)
[2016-06-25] MEDS ORDERED: SODIUM CHLORIDE 0.9% P/F 10 ML VIAL IJ ONE (13:06)
[2016-06-25] MEDS ORDERED: PROPOFOL 20 ML ONE ×2 (13:06)
[2016-06-25] MEDS ORDERED: MIDAZOLAM HCL 2 MG/2 ML SINGLE DOSE VIAL ONE (13:19)
--- NOTE | 2016-06-25 13:31 | PN ---
Progress Note, Physician History of Present Illness: Denies dyspnea, orthopnea, LE edema. Stress testing neg for ischemia. HD initiated via PC. Reports fatigue and anorexia. - Current Medication List Current Medications: Active Medications Acetaminophen (Tylenol -) 650 mg PO Q6H PRN PRN Reason: FEVER OR PAIN Amlodipine Besylate (Norvasc -) 5 mg PO BID [facility] Last Admin: 06/25/16 10:54 Dose: 5 mg Aspirin (Asa -) 81 mg PO DAILY [facility] Last Admin: 06/25/16 10:53 Dose: Not Given Atorvastatin Calcium (Lipitor -) 10 mg PO HS [facility] Last Admin: 06/24/16 21:35 Dose: 10 mg Carvedilol (Coreg -) 25 mg PO BID [facility] Last Admin: 06/25/16 10:53 Dose: 25 mg Docusate Sodium (Colace -) 100 mg PO TID [facility] Last Admin: 06/25/16 06:35 Dose: 100 mg Heparin Sodium (Porcine) (Heparin -) 5,000 unit SQ BID [facility] Last Admin: 06/25/16 10:54 Dose: Not Given Hydralazine HCl (Apresoline -) 50 mg PO TID [facility] Last Admin: 06/25/16 06:35 Dose: 50 mg Isosorbide Mononitrate (Imdur -) 30 mg PO DAILY [facility] Last Admin: 06/25/16 10:54 Dose: 30 mg Levothyroxine Sodium (Synthroid -) 12.5 mcg PO DAILY@0700 [facility] Last Admin: 06/25/16 06:35 Dose: 12.5 mcg Ondansetron HCl (Zofran Injection) 4 mg IVPB Q6H PRN PRN Reason: NAUSEA Sertraline HCl (Zoloft -) 50 mg PO HS [facility] Last Admin: 06/24/16 21:35 Dose: 50 mg Sevelamer Carbonate (Renvela -) 800 mg PO TIDCM [facility] Last Admin: 06/25/16 12:10 Dose: Not Given Sodium Bicarbonate (Sodium Bicarbonate -) 650 mg PO TID [facility] Last Admin: 06/25/16 06:35 Dose: 650 mg Torsemide (Demadex -) 40 mg PO DAILY [facility] Last Admin: 06/25/16 10:53 Dose: 40 mg - Objective Vital Signs: Vital Signs Temperature 98.7 F 06/25/16 08:13 Pulse Rate 63 06/25/16 08:13 Respiratory Rate 18 06/25/16 08:13 Blood Pressure 139/61 06/25/16 08:13 O2 Sat by Pulse Oximetry (%) 94 L 06/24/16 21:00 Constitutional: Yes: No Distress, Calm Neck: Yes: Supple Cardiovascular: Yes: Regular Rate and Rhythm Respiratory: Yes: Regular, Diminished Gastrointestinal: Yes: Normal Bowel Sounds, Soft Edema: No Labs: CBC, BMP 06/21/16 05:48 06/25/16 05:35 INR, PTT INR 1.05 (0.82-1.09) 06/25/16 05:35 - ....Imaging Chest X-ray: Report Reviewed (Post PC No PTX) Problem List - Problems (1) Hypothyroidism Code(s): E03.9 - HYPOTHYROIDISM, UNSPECIFIED Qualifiers: Hypothyroidism type: unspecified Qualified Code(s): E03.9 - Hypothyroidism, unspecified (2) Shortness of breath Code(s): R06.02 - SHORTNESS OF BREATH (3) Acute on chronic diastolic (congestive) heart failure Code(s): I50.33 - ACUTE ON CHRONIC DIASTOLIC (CONGESTIVE) HEART FAILURE (4) Hypertensive urgency Code(s): I10 - ESSENTIAL (PRIMARY) HYPERTENSION (5) Hyperlipidemia Code(s): E78.5 - HYPERLIPIDEMIA, UNSPECIFIED Qualifiers: Hyperlipidemia type: pure hypercholesterolemia Qualified Code(s): E78.0 - Pure hypercholesterolemia (6) [id number] kidney injury Code(s): N17.9 - ACUTE KIDNEY FAILURE, UNSPECIFIED N18.9 - CHRONIC KIDNEY DISEASE, UNSPECIFIED (7) Subendocardial ischemia Code(s): I24.8 - OTHER FORMS OF ACUTE ISCHEMIC HEART DISEASE (8) Anemia Code(s): D64.9 - ANEMIA, UNSPECIFIED Qualifiers: Other causes of anemia: chronic disease, kidney Assessment/Plan 1. Improving acute on chronic diastolic failure 2. Hypertension 3. Acute on CKD - on HD via PC 4. MVP 5. Hyperlipidemia 6. Hypothyroidism 7. Hydrocephelus post CHUTE BOSS shunt 8. Non-sustained VT PLAN: 1. Continue Demadex 40 qd with monitoring renal function and electrolytes. Renal service to initiate HD via PC 2. Continue Carvedilol 25 mg BID, ASA 81 mg QD, Norvasc 5 mg BID, Lipitor 10 mg QHS, Hydralazine 50 mg TID and Imdur 30 mg QD. Patient is not on ACEI due to renal disease 3. DVT prophylaxis
[2016-06-25] MEDS ORDERED: ceFAZolin SODIUM 1 GM VIAL IVPB ONE (13:41)
[2016-06-25] MEDS ORDERED: LIDOCAINE HCL 1%, 10 MG/ML (20ML VIAL) IJ ONE ×2 (13:53)
[2016-06-25] MEDS ORDERED: HEPARIN NA (PORCINE) 1,000 UNITS/ML 10ML M-D VIAL SQ ONE (13:53)
--- NOTE | 2016-06-25 14:02 | PN ---
Physical Exam: SUBJECTIVE: Patient seen and examined. denies chest pain, sob, lightheadedness, dizziness, nausea, vomiting OBJECTIVE: Vital Signs Period Temp Pulse Resp BP Sys/Alan Pulse Ox Last 24 Hr 97.5 F-98.7 F 58-64 18-20 137-152/53-61 94 GENERAL: The patient is awake, alert, and fully oriented, in no acute distress. HEAD: Normal with no signs of trauma. NECK: Full range of motion, supple., mild jvp distension LUNGS: Breath sounds equal. no rale, no crackles, no wheeze HEART: s1s2 normal, as murmur present radiating to neck ABDOMEN: Soft, nontender, nondistended, normoactive bowel sounds, no guarding, no rebound, no hepatosplenomegaly, no masses. EXTREMITIES: 2+ pulses, warm, well-perfused, no pedal edema Laboratory Results - last 24 hr 06/25/16 06/25/16 05:35 05:35 INR 1.05 PTT (Actin FS) 28.0 Sodium 134 L Potassium 4.1 Chloride 98 Carbon Dioxide 19 L Anion Gap 17 H BUN 142 H* Creatinine 6.7 H Random Glucose 106 Calcium 7.5 L Active Medications Generic Name Dose Route Start Last Admin Trade Name Freq PRN Reason Stop Dose Admin Acetaminophen 650 mg 06/18/16 14:20 Tylenol - PO Q6H PRN FEVER OR PAIN Amlodipine Besylate 5 mg 06/18/16 22:00 06/25/16 10:54 Norvasc - PO 5 mg BID SHERITA Administration Aspirin 81 mg 06/19/16 10:00 06/25/16 10:53 Asa - PO Not Given DAILY SHERITA Atorvastatin Calcium 10 mg 06/18/16 22:00 06/24/16 21:35 Lipitor - PO 10 mg HS SHERITA Administration Carvedilol 25 mg 06/20/16 14:04 06/25/16 10:53 Coreg - PO 25 mg BID SHERITA Administration Docusate Sodium 100 mg 06/18/16 22:00 06/25/16 06:35 Colace - PO 100 mg TID SHERITA Administration Heparin Sodium (Porcine) 5,000 unit 06/18/16 22:00 06/25/16 10:54 Heparin - SQ Not Given BID SHERITA Hydralazine HCl 50 mg 06/20/16 14:00 06/25/16 06:35 Apresoline - PO 50 mg TID SHERITA Administration Isosorbide Mononitrate 30 mg 06/23/16 15:45 06/25/16 10:54 Imdur - PO 30 mg DAILY [facility]ERITA Administration Levothyroxine Sodium 12.5 mcg 06/24/16 07:00 06/25/16 06:35 Synthroid - PO 12.5 mcg DAILY@0700 SHERITA Administration Ondansetron HCl 4 mg 06/18/16 14:20 Zofran Injection IVPB Q6H PRN NAUSEA Sertraline HCl 50 mg 06/18/16 22:00 06/24/16 21:35 Zoloft - PO 50 mg HS SHERITA Administration Sevelamer Carbonate 800 mg 06/24/16 17:30 06/25/16 12:10 Renvela - PO Not Given TIDCM SHERITA Sodium Bicarbonate 650 mg 06/18/16 15:45 06/25/16 06:35 Sodium Bicarbonate - PO 650 mg TID SHERITA Administration Torsemide 40 mg 06/23/16 12:30 06/25/16 10:53 Demadex - PO 40 mg DAILY [facility]ER[facility] Administration ASSESSMENT/PLAN: This is an 86-year-old woman with a history of dementia, HTN, MVP, hyperlipidemia, hypothyroidism, diastolic CHF, [employer]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 1. Acute diastolic heart failure - cxr shows left side plural effusion - chest clear , no pedal edema, mild jvp distension, denies sob - on coreg 25 bid , hydralazine 50 tid and norvasc 5mg bid , imdur 30 - cardiology on case 2. Acute kidney injury on stage 4 CKD - could be due to over diuresis in her previous admission in [facility], base line creat 3.0 -Renal function continues to worsen cr 6.7, patient relatives agree for HD, patient will go for permacath and than HD - continuw eith demadex 40mg daily - Nephrology consult appreciated;: -c/w bicarb, -hyperphosphatemia due to renal failure, patient on phospho binder 3. Chronic diastolic heart failure - Continue Coreg, Norvasc 4. uncontrolled Hypertension - 152/62 - Continue Norvasc 5 bid , Coreg 25 bid, - on hydralazine 50 tid, imdur 30 daily - Vasotec held secondary to SARAI with hyperkalemia - low salt diet - monitor blood pressure 5. Hypothyroidism - tsh 0.08, t4 normal synthyroid decreased to 12.5 6. Hyperlipidemia - Continue Lipitor 7 constipation colace 100mg tid fluid : orally allowed electrolyte follow bmp tomorrow nutrition : renal diet dvt pro on heparin Dispo admit in med surg Visit type - Emergency Visit Emergency Visit: Yes ED Registration Date: 06/18/16 Care time: The patient presented to the Emergency Department on the above date and was hospitalized for further evaluation of their emergent condition. - New Patient This patient is new to me today: No - Critical Care Critical Care patient: No
--- NOTE | 2016-06-25 14:41 | OP ---
Operative Note - Note: Operative Date: 06/25/16 Pre-Operative Diagnosis: ARF Operation: Insertion of permcath Post-Operative Diagnosis: Same as Pre-op Surgeon: Jay Rosales Anesthesia: Fractional Estimated Blood Loss (mls): 10 Operative Report Dictated: Yes
[2016-06-25] MEDS ORDERED: ONDANSETRON 4 MG/2 ML VIAL IVPB PRN (14:44)
[2016-06-25] MEDS ORDERED: ACETAMINOPHEN 325 MG TABLET (FP) PO PRN (14:44)
--- NOTE | 2016-06-25 14:46 | PN ---
Progress Note, Physician History of Present Illness: Pt seen and examined at bedside. She is in bed. She has increased fatigue and decreased appetite. She denies chest pain. She does have some shortness of breath. - Current Medication List Current Medications: Active Medications Acetaminophen (Tylenol -) 650 mg PO Q6H PRN PRN Reason: FEVER OR PAIN Amlodipine Besylate (Norvasc -) 5 mg PO BID [facility] Last Admin: 06/25/16 10:54 Dose: 5 mg Aspirin (Asa -) 81 mg PO DAILY [facility] Last Admin: 06/25/16 10:53 Dose: Not Given Atorvastatin Calcium (Lipitor -) 10 mg PO HS [facility] Last Admin: 06/24/16 21:35 Dose: 10 mg Carvedilol (Coreg -) 25 mg PO BID [facility] Last Admin: 06/25/16 10:53 Dose: 25 mg Docusate Sodium (Colace -) 100 mg PO TID [facility] Last Admin: 06/25/16 14:03 Dose: Not Given Heparin Sodium (Porcine) (Heparin -) 5,000 unit SQ BID [facility] Last Admin: 06/25/16 10:54 Dose: Not Given Hydralazine HCl (Apresoline -) 50 mg PO TID [facility] Last Admin: 06/25/16 14:03 Dose: Not Given Isosorbide Mononitrate (Imdur -) 30 mg PO DAILY [facility] Last Admin: 06/25/16 10:54 Dose: 30 mg Levothyroxine Sodium (Synthroid -) 12.5 mcg PO DAILY@0700 [facility] Last Admin: 06/25/16 06:35 Dose: 12.5 mcg Ondansetron HCl (Zofran Injection) 4 mg IVPB Q6H PRN PRN Reason: NAUSEA Sertraline HCl (Zoloft -) 50 mg PO HS [facility] Last Admin: 06/24/16 21:35 Dose: 50 mg Sevelamer Carbonate (Renvela -) 800 mg PO TIDCM [facility] Last Admin: 06/25/16 12:10 Dose: Not Given Sodium Bicarbonate (Sodium Bicarbonate -) 650 mg PO TID [facility] Last Admin: 06/25/16 14:03 Dose: Not Given Torsemide (Demadex -) 40 mg PO DAILY [facility] Last Admin: 06/25/16 10:53 Dose: 40 mg - Objective Vital Signs: Vital Signs Temperature 98.7 F 06/25/16 08:13 Pulse Rate 63 06/25/16 08:13 Respiratory Rate 18 06/25/16 08:13 Blood Pressure 139/61 06/25/16 08:13 O2 Sat by Pulse Oximetry (%) 94 L 06/24/16 21:00 Constitutional: Yes: Calm Eyes: Yes: Conjunctiva Clear HENT: Yes: Atraumatic Cardiovascular: Yes: S1, S2 Respiratory: Yes: On Nasal O2, Rhonchi Gastrointestinal: Yes: Soft Genitourinary: Yes: Bladder Distention Musculoskeletal: Yes: Muscle Weakness Edema: Yes Edema: LLE: Trace, RLE: Trace Neurological: Yes: Oriented Psychiatric: Yes: Oriented Labs: CBC, BMP 06/21/16 05:48 06/25/16 05:35 INR, PTT INR 1.05 (0.82-1.09) 06/25/16 05:35 - ....Imaging Chest X-ray: Report Reviewed Problem List - Problems (1) Acute renal failure Code(s): N17.9 - ACUTE KIDNEY FAILURE, UNSPECIFIED (2) CHF (congestive heart failure) Code(s): I50.9 - HEART FAILURE, UNSPECIFIED (3) Hypertension Code(s): I10 - ESSENTIAL (PRIMARY) HYPERTENSION (4) Hypothyroidism Code(s): E03.9 - HYPOTHYROIDISM, UNSPECIFIED Qualifiers: Hypothyroidism type: unspecified Qualified Code(s): E03.9 - Hypothyroidism, unspecified (5) Shortness of breath Code(s): R06.02 - SHORTNESS OF BREATH (6) Chronic kidney disease (CKD) Code(s): N18.9 - CHRONIC KIDNEY DISEASE, UNSPECIFIED Assessment/Plan Current Medications Generic Name Dose Route Start Last Admin Trade Name Freq PRN Reason Stop Dose Admin Acetaminophen 650 mg 06/25/16 14:44 Tylenol - PO Q6H PRN FEVER OR PAIN Amlodipine Besylate 5 mg 06/25/16 22:00 Norvasc - PO BID [facility] Aspirin 81 mg 06/26/16 10:00 Asa - PO DAILY [facility] Atorvastatin Calcium 10 mg 06/25/16 22:00 Lipitor - PO HS [facility] Carvedilol 25 mg 06/25/16 22:00 Coreg - PO BID [facility] Docusate Sodium 100 mg 06/25/16 22:00 Colace - PO TID [facility]ERITA Heparin Sodium (Porcine) 5,000 unit 06/25/16 22:00 Heparin - SQ BID [facility] Hydralazine HCl 50 mg 06/25/16 22:00 Apresoline - PO TID [facility] Isosorbide Mononitrate 30 mg 06/26/16 10:00 Imdur - PO DAILY [facility] Levothyroxine Sodium 12.5 mcg 06/26/16 07:00 Synthroid - PO DAILY@0700 [facility] Ondansetron HCl 4 mg 06/25/16 14:44 Zofran Injection IVPB Q6H PRN NAUSEA Sertraline HCl 50 mg 06/25/16 22:00 Zoloft - PO HS SHERITA Sevelamer Carbonate 800 mg 06/25/16 17:30 Renvela - PO TIDCM [facility] Sodium Bicarbonate 650 mg 06/25/16 22:00 Sodium Bicarbonate - PO TID [facility]ERITA Torsemide 40 mg 06/26/16 10:00 Demadex - PO DAILY [facility]ER[facility] Impression 1. CKD 2. SARAI 3. HTN 4. CHF 5. pleural effusion 6. hypothyroidism 7. hyperlipidemia 8. MVP Plan - spoke to family at length today - discussed with vascular - pt juan carlos saxena placed - will arrange for HD today - repeat labs in am - will evluate for HD in am - arrange for HD in [facility] under Dr Maradiaga please - cont demadex - daily weights - cont pt/rehab - renal diet - will stop PO bicarb Dr Hernandez
--- NOTE | 2016-06-25 16:29 | PN ---
Teaching Attending Note Name of Resident: Maurice Ruffin ATTENDING PHYSICIAN STATEMENT I saw and evaluated the patient. I reviewed the resident's note and discussed the case with the resident. I agree with the resident's findings and plan as documented. SUBJECTIVE: no pain, no OSB , no fever or chills OBJECTIVE: NAD . awake , pleasant CV: RRR. 2/6 SM at [facility] , LUSB , with radiation to carotids . 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 she presented with SOB , was found to have cr above base line , with D CHF , worsening renal failure and trop leak 1- SARAI : continue to worsen - permacath today - start HD today . spoke to son who d/w Dr. García and agreed on HD - cont to hold ACEI 2- Acute D CHF : - will manage volume with HD 3- Trop leak : ? NSTEMI VS due to renal failure - stress test with fixed anterior defect . - cont imdur , and coreg . - cont HZN and Norvasc . 4- HTN : cont current meds . if BP remains elevated , can increase Imdur 5- h/o hypothyroidism : with decreased TSH. cont decreased synthroid dose 6- DVT : heparin sq
[2016-06-25 19:47] LABS: CALCIUM 8.2 mg/dL (8.5-10.1); CREATININE 2.9 mg/dL (0.55-1.02)
[2016-06-25] MEDS ORDERED: SODIUM BICARBONATE 650 MG TABLET PO SCH (22:00)
[2016-06-25] MEDS: ATORVASTATIN CA 10 MG TABLET (FP) PO SCH (22:32)
[2016-06-25] MEDS: SERTRALINE HCL 50 MG TABLET (FP) PO SCH (22:32)
[2016-06-25] MEDS: CARVEDILOL 25 MG TABLET (FP) PO SCH (22:32)
--- NOTE | 2016-06-26 00:15 | OP ---
DATE OF OPERATION: 06/25/2016 PREOPERATIVE DIAGNOSIS: Acute renal failure. POSTOPERATIVE DIAGNOSIS: Acute renal failure. PROCEDURE: Insertion of Perma-Cath. SURGEON: Jay Rivera DO ANESTHESIA: Fractional. ESTIMATED BLOOD LOSS: 5 mL. INDICATIONS: The patient is an 86-year-old female that has acute renal failure and now needs temporary dialysis catheter placement. The patient's son was consented for the procedure, understanding all risks, benefits and alternatives. DESCRIPTION OF PROCEDURE: The patient was then brought to the operating room, laid on the operating table in a supine manner. The area of the right neck and chest were prepped and draped in a sterile surgical manner. We then, under ultrasound guidance, were able to visualize the right internal jugular vein and 10 mL of 1% lidocaine was injected there. We then took a micropuncture needle and punctured the right internal jugular vein under ultrasound guidance. We then placed sterile micropuncture wire under fluoroscopy. A 5-[place] sheath was placed, and 0.035 floppy guidewire was placed under fluoroscopy. We then injected 10 mL of 1% lidocaine above and below the clavicle. We then took our 11 blade and made a 1 cm incision at the puncture site. We then took a 15 blade and made a 1 cm incision below the clavicle. We then tunneled the Perma-Cath up to the puncture site. We then placed our break-away sheath over the guidewire into the vein under fluoroscopy and the cannula and guidewire were removed. The catheter was placed inside the sheath. The sheath was broken away as the catheter was placed inside the vein. The neck of the catheter was nice and smooth. Tip of the catheter was located outside the right atrium. We then greg back on each port and there was good flow. Heparinized saline was injected, 2,000 units of IV heparin was injected into each port. Biosyn 4-0 was used and 2 simple sutures were placed at the puncture site. Nylon 3-0 was used and the catheter was attached to the skin. Bio-Patch, Steri-Strips, 4 x 4 and Tegaderms were placed. The patient tolerated the procedure with no complication. The patient was transferred to the PACU in stable condition where chest x-ray will be obtained. JAY RIVERA DO STRATEGY INTERN/[id number]
[2016-06-26] MEDS: DOCUSATE SODIUM 100 MG CAPSULE (FP) PO SCH ×3 (06:25→21:38)
[2016-06-26] MEDS: LEVOTHYROXINE NA 25 MCG TABLET (FP) PO SCH (06:25)
[2016-06-26] MEDS: hydrALAZINE HCL 50 MG TABLET (FP) PO SCH ×3 (06:25→21:38)
[2016-06-26 08:22] LABS: ALBUMIN 2.3 g/dl (3.4-5.0); BILIRUBIN,TOTAL 0.2 mg/dL (0.2-1.0); CALCIUM 8.3 mg/dL (8.5-10.1); CREATININE 4.9 mg/dL (0.55-1.02); PHOSPHOROUS 7.7 mg/dL (2.5-4.9); TOT PROT 5.8 g/dl (6.4-8.2)
[2016-06-26 08:23] LABS: BASOPHIL 0.3 % (0-2.0); EOSINOPHIL 0.4 % (0-4.5); MCH 27.3 pg (25.7-33.7); MCHC 32.6 g/dl (32.0-36.0); MEAN CELL VOLUME 83.6 fl (80-96); MEAN PLT VOLUME 9.3 fl (7.5-11.1); NEUTROPHILS 76.8 % (42.8-82.8); PLATELET COUNT 205 K/MM3 (134-434); RDW 14.2 % (11.6-15.6); WHITE BLOOD COUNT 4.4 K/mm3 (4.0-10.0)
--- NOTE | 2016-06-26 10:18 | PN ---
Progress Note (short form) - Note Progress Note: RENAL Pt is awake and alert comfortable sitting in solarium has n0 complaints Last Vital Signs Temp Pulse Resp BP Pulse Ox 98.5 F 63 20 148/63 93 L 06/26/16 02:07 06/26/16 06:00 06/26/16 06:00 06/26/16 06:00 06/25/16 20:47 lungs decreased breath sounds but mostly clear cvs s1s2 rr with extra beats abd soft ext no edema neuro a+ox3 memory is poor CBC, BMP 06/26/16 06:00 06/26/16 06:00 IMPRESSION alexsander/ckd seems compensated anemia PLAN pt was dialyzed last night will give another short treatment since bun has risen needs to be placed at [facility]
[2016-06-26] MEDS ORDERED: EPOETIN ALFA 2,000 UNITS/1 ML VIAL IVPUSH ONE (10:19)
[2016-06-26] MEDS: SEVELAMER CARBONATE 800 MG TAB (FP) PO SCH ×3 (10:55→17:33)
--- NOTE | 2016-06-26 11:57 | PN ---
Physical Exam: SUBJECTIVE: Patient seen and examined Patient is lying in bed having dialysis. No fever or chills, no shortness of breath. OBJECTIVE: Vital Signs Temperature 98.5 F 06/26/16 14:40 Pulse Rate 63 06/26/16 14:40 Respiratory Rate 18 06/26/16 14:40 Blood Pressure 186/56 06/26/16 14:40 O2 Sat by Pulse Oximetry (%) 98 06/26/16 10:00 GENERAL: The patient is awake, alert, and fully oriented, in no acute distress. HEAD: Normal with no signs of trauma. EYES: PERRL, extraocular movements intact, sclera anicteric, conjunctiva clear. ENT: Ears normal, oropharynx clear without exudates, moist mucous membranes. NECK: Trachea midline, full range of motion, supple. LUNGS: Breath sounds equal, clear to auscultation bilaterally, no wheezes, no crackles, no accessory muscle use. HEART: Regular rate and rhythm, S1, S2 positive, JANELL 2/6 no murmur, rub or gallop. ABDOMEN: Soft, nontender, nondistended, normoactive bowel sounds, no guarding, no rebound, no hepatosplenomegaly, no masses. EXTREMITIES: 2+ pulses, warm, well-perfused, no edema. NEUROLOGICAL: Cranial nerves II through XII grossly intact. Normal speech, gait not observed. PSYCH: Normal mood, normal affect. SKIN: Warm, dry, normal turgor, no rashes or lesions noted Laboratory Results - last 24 hr 06/25/16 06/26/16 06/26/16 17:40 06:00 06:00 WBC 4.4 RBC 3.10 L Hgb 8.4 L Hct 25.9 L MCV 83.6 MCHC 32.6 RDW 14.2 Plt Count 205 MPV 9.3 Neutrophils % 76.8 Lymphocytes % 12.3 D Monocytes % 10.2 Eosinophils % 0.4 Basophils % 0.3 Sodium 139 138 Potassium 3.5 4.2 Chloride 101 100 Carbon Dioxide 29 D 26 Anion Gap 9 12 BUN 64 H D 85 H D Creatinine 2.9 H D 4.9 H D Creat Clearance w eGFR 8.40 Random Glucose 127 H 97 D Calcium 8.2 L 8.3 L Phosphorus 7.7 H Total Bilirubin 0.2 D AST 12 L D ALT 16 D Alkaline Phosphatase 56 Total Protein 5.8 L Albumin 2.3 L Active Medications Generic Name Dose Route Start Last Admin Trade Name Freq PRN Reason Stop Dose Admin Acetaminophen 650 mg 06/25/16 14:44 Tylenol - PO Q6H PRN FEVER OR PAIN Amlodipine Besylate 5 mg 06/25/16 22:00 06/25/16 22:31 Norvasc - PO 5 mg BID SHERITA Administration Aspirin 81 mg 06/26/16 10:00 Asa - PO DAILY SHERITA Atorvastatin Calcium 10 mg 06/25/16 22:00 06/25/16 22:32 Lipitor - PO 10 mg HS SHERITA Administration Carvedilol 25 mg 06/25/16 22:00 06/25/16 22:32 Coreg - PO 25 mg BID SHERITA Administration Docusate Sodium 100 mg 06/25/16 22:00 06/26/16 06:25 Colace - PO 100 mg TID SHERITA Administration Epoetin Pasquale 2,000 units 06/26/16 10:19 Epogen - IVPUSH 06/26/16 10:20 ONCE ONE Heparin Sodium (Porcine) 5,000 unit 06/25/16 22:00 06/25/16 22:32 Heparin - SQ 5,000 unit BID SHERITA Administration Hydralazine HCl 50 mg 06/25/16 22:00 06/26/16 06:25 Apresoline - PO 50 mg TID [facility] Administration Isosorbide Mononitrate 30 mg 06/26/16 10:00 Imdur - PO DAILY [facility] Levothyroxine Sodium 12.5 mcg 06/26/16 07:00 06/26/16 06:25 Synthroid - PO 12.5 mcg DAILY@0700 [facility] Administration Ondansetron HCl 4 mg 06/25/16 14:44 Zofran Injection IVPB Q6H PRN NAUSEA Sertraline HCl 50 mg 06/25/16 22:00 06/25/16 22:32 Zoloft - PO 50 mg HS [facility] Administration Sevelamer Carbonate 800 mg 06/25/16 17:30 06/26/16 11:04 Renvela - PO Not Given TIDCM [facility] Torsemide 40 mg 06/26/16 10:00 Demadex - PO DAILY [facility] ASSESSMENT/PLAN: 86 y/o lady with h/o dementia , HTN , HL , Diastolic CHF , 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 # Acute on chronic Kidney failure with ESRD , having Hemodialysis today at bedside s/p permacath , Discussed with who is covering for , hold ACEI for now, started instead Hydralazine. # Hypertensive Emergency ; Patient is getting dialyzed , post dialysis will get her meds; hydralazine, torsemide, and norvasc. if BP remains elevated , can increase Imdur # Acute Diastolic CHF : On HD now, on Demadex diuretic as well # Elevated Troponin ? NSTEMI , most likely due to renal failure ; - stress test with fixed anterior defect . - cont imdur , and coreg . - cont Hydralazine and Norvasc . # H/o hypothyroidism : with decreased TSH. cont synthroid DVT : heparin sq Visit type - Emergency Visit Emergency Visit: Yes ED Registration Date: 06/18/16 Care time: The patient presented to the Emergency Department on the above date and was hospitalized for further evaluation of their emergent condition. - New Patient This patient is new to me today: Yes Date on this admission: 06/26/16 - Critical Care Critical Care patient: No - Discharge Referral Referred to [facility] Med [facility] No
[2016-06-26] MEDS: TORSEMIDE 20 MG TABLET (FP) PO SCH (14:31)
[2016-06-26] MEDS: ASPIRIN 81 MG CHEWABLE TABLETS PO SCH (14:31)
[2016-06-26] MEDS: CARVEDILOL 25 MG TABLET (FP) PO SCH ×2 (14:31→21:38)
[2016-06-26] MEDS: ISOSORBIDE MONONITRATE 30 MG TAB.SR.24H (FP) PO SCH (14:31)
[2016-06-26] MEDS: HEPARIN NA (PORCINE) 5,000 UNITS/ML 1ML VIAL SQ SCH ×2 (14:32→21:38)
[2016-06-26] MEDS: amLODIPine BESYLATE 5 MG TABLET (FP) PO SCH ×2 (14:32→21:39)
--- NOTE | 2016-06-26 15:38 | PN ---
Progress Note, Physician Chief Complaint: Events noted Not in distress at the moment Being dialyzed via permacath History of Present Illness: Patient was seen and examined. Awake and alert. Chart was reviewed HD initiated Denies chest pain, SOB or palpitations - Current Medication List Current Medications: Active Medications Acetaminophen (Tylenol -) 650 mg PO Q6H PRN PRN Reason: FEVER OR PAIN Amlodipine Besylate (Norvasc -) 5 mg PO BID [facility] Last Admin: 06/26/16 14:32 Dose: 5 mg Aspirin (Asa -) 81 mg PO DAILY [facility] Last Admin: 06/26/16 14:31 Dose: 81 mg Atorvastatin Calcium (Lipitor -) 10 mg PO HS [facility] Last Admin: 06/25/16 22:32 Dose: 10 mg Carvedilol (Coreg -) 25 mg PO BID [facility] Last Admin: 06/26/16 14:31 Dose: 25 mg Docusate Sodium (Colace -) 100 mg PO TID [facility] Last Admin: 06/26/16 14:32 Dose: 100 mg Heparin Sodium (Porcine) (Heparin -) 5,000 unit SQ BID [facility] Last Admin: 06/26/16 14:32 Dose: 5,000 unit Hydralazine HCl (Apresoline -) 50 mg PO TID [facility] Last Admin: 06/26/16 13:14 Dose: 50 mg Isosorbide Mononitrate (Imdur -) 30 mg PO DAILY [facility] Last Admin: 06/26/16 14:31 Dose: 30 mg Levothyroxine Sodium (Synthroid -) 12.5 mcg PO DAILY@0700 [facility] Last Admin: 06/26/16 06:25 Dose: 12.5 mcg Ondansetron HCl (Zofran Injection) 4 mg IVPB Q6H PRN PRN Reason: NAUSEA Sertraline HCl (Zoloft -) 50 mg PO HS [facility] Last Admin: 06/25/16 22:32 Dose: 50 mg Sevelamer Carbonate (Renvela -) 800 mg PO TIDCM [facility] Last Admin: 06/26/16 11:04 Dose: Not Given Torsemide (Demadex -) 40 mg PO DAILY [facility] Last Admin: 06/26/16 14:31 Dose: 40 mg - Objective Vital Signs: Vital Signs Temperature 98.5 F 06/26/16 14:40 Pulse Rate 63 06/26/16 14:40 Respiratory Rate 18 06/26/16 14:40 Blood Pressure 186/56 06/26/16 14:40 O2 Sat by Pulse Oximetry (%) 98 06/26/16 10:00 Neck: Yes: Supple Cardiovascular: Yes: Regular Rate and Rhythm, S1, S2 Respiratory: Yes: Diminished Gastrointestinal: Yes: Normal Bowel Sounds, Soft. No: Tenderness Edema: No Additional Findings/Remarks: Review of Systems Constitutional: denies: chills, fever Cardiovascular: denies: chest pain, shortness of breath, palpitation Respiratory: denies: cough, sputum production, hemoptysis Gastrointestinal: denies: nausea, vomiting, diarrhea, constipation or abdominal pain Genitourinary: No symptoms reported Musculoskeletal: No symptoms reported Labs: CBC, BMP 06/26/16 06:00 06/26/16 06:00 INR, PTT INR 1.05 (0.82-1.09) 06/25/16 05:35 Problem List - Problems (1) Acute on chronic diastolic (congestive) heart failure Code(s): I50.33 - ACUTE ON CHRONIC DIASTOLIC (CONGESTIVE) HEART FAILURE (2) Ilrtz-uw-hjxeagt kidney injury Code(s): N17.9 - ACUTE KIDNEY FAILURE, UNSPECIFIED N18.9 - CHRONIC KIDNEY DISEASE, UNSPECIFIED (3) Anemia Code(s): D64.9 - ANEMIA, UNSPECIFIED Qualifiers: Other causes of anemia: chronic disease, kidney (4) CHF (congestive heart failure) Code(s): I50.9 - HEART FAILURE, UNSPECIFIED Qualifiers: Congestive heart failure type: diastolic Congestive heart failure chronicity: acute on chronic Qualified Code(s): I50.33 - Acute on chronic diastolic (congestive) heart failure (5) Hyperlipidemia Code(s): E78.5 - HYPERLIPIDEMIA, UNSPECIFIED Qualifiers: Hyperlipidemia type: pure hypercholesterolemia Qualified Code(s): E78.0 - Pure hypercholesterolemia (6) Hypertension Code(s): I10 - ESSENTIAL (PRIMARY) HYPERTENSION Qualifiers: Hypertension type: essential hypertension Qualified Code(s): I10 - Essential (primary) hypertension (7) Hypothyroidism Code(s): E03.9 - HYPOTHYROIDISM, UNSPECIFIED Qualifiers: Hypothyroidism type: unspecified Qualified Code(s): E03.9 - Hypothyroidism, unspecified (8) ESRD (end stage renal disease) on dialysis Code(s): N18.6 - END STAGE RENAL DISEASE Z99.2 - DEPENDENCE ON RENAL DIALYSIS Assessment/Plan 1. Acute on chronic diastolic failure 2. Hypertension 3. Acute on CKD - elevated BUN/creatinine - now on HD 4. MVP 5. Hyperlipidemia 6. 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 Non-sustained VT PLAN: 1. Continue HD as per renal service. Currently maintained on Demadex. Monitor renal function 2. Continue Carvedilol 25 mg BID, ASA 81 mg QD, Norvasc 5 mg BID, Lipitor 10 mg QHS, Hydralazine 50 mg TID and Imdur 30 mg QD. Patient is not on ACEI due to renal disease 3. DVT prophylaxis Further plans are to follow Vladimir eHrman MD
[2016-06-26] MEDS: SERTRALINE HCL 50 MG TABLET (FP) PO SCH (21:39)
[2016-06-26] MEDS: ATORVASTATIN CA 10 MG TABLET (FP) PO SCH (21:39)
[2016-06-27] MEDS: LEVOTHYROXINE NA 25 MCG TABLET (FP) PO SCH (06:34)
[2016-06-27] MEDS: hydrALAZINE HCL 50 MG TABLET (FP) PO SCH ×3 (06:34→21:26)
[2016-06-27] MEDS: DOCUSATE SODIUM 100 MG CAPSULE (FP) PO SCH ×3 (06:34→21:26)
[2016-06-27 07:14] LABS: BASOPHIL 0.7 % (0-2.0); EOSINOPHIL 0.4 % (0-4.5); MCH 27.4 pg (25.7-33.7); MCHC 32.4 g/dl (32.0-36.0); MEAN CELL VOLUME 84.7 fl (80-96); MEAN PLT VOLUME 8.7 fl (7.5-11.1); NEUTROPHILS 71.5 % (42.8-82.8); PLATELET COUNT 172 K/MM3 (134-434); RDW 14.4 % (11.6-15.6); WHITE BLOOD COUNT 3.8 K/mm3 (4.0-10.0)
[2016-06-27 08:17] LABS: CALCIUM 8.1 mg/dL (8.5-10.1); CREATININE 4.2 mg/dL (0.55-1.02)
[2016-06-27] MEDS: ASPIRIN 81 MG CHEWABLE TABLETS PO SCH (09:36)
[2016-06-27] MEDS: ISOSORBIDE MONONITRATE 30 MG TAB.SR.24H (FP) PO SCH (09:37)
[2016-06-27] MEDS: CARVEDILOL 25 MG TABLET (FP) PO SCH ×2 (09:37→21:26)
[2016-06-27] MEDS: TORSEMIDE 20 MG TABLET (FP) PO SCH (09:37)
[2016-06-27] MEDS: SEVELAMER CARBONATE 800 MG TAB (FP) PO SCH ×2 (09:38→12:24)
[2016-06-27] MEDS: amLODIPine BESYLATE 5 MG TABLET (FP) PO SCH ×2 (09:38→21:26)
--- NOTE | 2016-06-27 10:49 | PN ---
Progress Note (short form) - Note Progress Note: Patient is feeling tired today since has not slept last night. Temperature 99.2 F 06/27/16 08:36 Pulse Rate 64 06/27/16 08:36 Respiratory Rate 20 06/27/16 08:36 Blood Pressure 145/66 06/27/16 08:36 O2 Sat by Pulse Oximetry (%) 96 06/26/16 21:00 GENERAL: lying in bed lethargic HEAD: Normal with no signs of trauma. EYES: PERRL, extraocular movements intact, sclera anicteric, conjunctiva clear. ENT: Ears normal, oropharynx clear without exudates, moist mucous membranes. NECK: Trachea midline, full range of motion, supple. LUNGS: Breath sounds equal, clear to auscultation bilaterally, no wheezes, no crackles, no accessory muscle use. HEART: Regular rate and rhythm, S1, S2 positive, JANELL 2/6 no murmur, rub or gallop. ABDOMEN: Soft, nontender, nondistended, normoactive bowel sounds, no guarding, no rebound, no hepatosplenomegaly, no masses. EXTREMITIES: 2+ pulses, warm, well-perfused, no edema. NEUROLOGICAL: Cranial nerves II through XII grossly intact. Normal speech, gait not observed. PSYCH: Normal mood, normal affect. SKIN: Warm, dry, normal turgor, no rashes or lesions noted CBCD WBC 3.8 K/mm3 (4.0-10.0) L 06/27/16 06:00 RBC 3.17 M/mm3 (3.60-5.2) L 06/27/16 06:00 Hgb 8.7 GM/dL (10.7-15.3) L 06/27/16 06:00 Hct 26.9 % (32.4-45.2) L 06/27/16 06:00 MCV 84.7 fl (80-96) 06/27/16 06:00 MCHC 32.4 g/dl (32.0-36.0) 06/27/16 06:00 RDW 14.4 % (11.6-15.6) 06/27/16 06:00 Plt Count 172 K/MM3 (134-434) 06/27/16 06:00 MPV 8.7 fl (7.5-11.1) 06/27/16 06:00 CMP Sodium 137 mmol/L (136-145) 06/27/16 06:00 Potassium 3.9 mmol/L (3.5-5.1) 06/27/16 06:00 Chloride 100 mmol/L (98-107) 06/27/16 06:00 Carbon Dioxide 28 mmol/L (21-32) 06/27/16 06:00 Anion Gap 9 (8-16) 06/27/16 06:00 BUN 50 mg/dL (7-18) H D 06/27/16 06:00 Creatinine 4.2 mg/dL (0.55-1.02) H 06/27/16 06:00 Creat Clearance w eGFR 8.40 (>60) 06/26/16 06:00 Random Glucose 99 mg/dL (74-106) 06/27/16 06:00 Calcium 8.1 mg/dL (8.5-10.1) L 06/27/16 06:00 Total Bilirubin 0.2 mg/dL (0.2-1.0) D 06/26/16 06:00 AST 12 U/L (15-37) L D 06/26/16 06:00 ALT 16 U/L (12-78) D 06/26/16 06:00 Alkaline Phosphatase 56 U/L (45-117) 06/26/16 06:00 Total Protein 5.8 g/dl (6.4-8.2) L 06/26/16 06:00 Albumin 2.3 g/dl (3.4-5.0) L 06/26/16 06:00 CARDIAC ENZYMES Creatine Kinase 142 IU/L (26-192) 06/18/16 19:30 Troponin I 0.06 ng/ml (0.00-0.05) H 06/20/16 05:50 Current Medications Generic Name Dose Route Start Last Admin Trade Name Freq PRN Reason Stop Dose Admin Acetaminophen 650 mg 06/25/16 14:44 Tylenol - PO Q6H PRN FEVER OR PAIN Amlodipine Besylate 5 mg 06/25/16 22:00 06/27/16 09:38 Norvasc - PO 5 mg BID SHERITA Administration Aspirin 81 mg 06/26/16 10:00 06/27/16 09:36 Asa - PO 81 mg DAILY [facility]ERITA Administration Atorvastatin Calcium 10 mg 06/25/16 22:00 06/26/16 21:39 Lipitor - PO 10 mg HS [facility]ITA Administration Carvedilol 25 mg 06/25/16 22:00 06/27/16 09:37 Coreg - PO 25 mg BID [facility] Administration Docusate Sodium 100 mg 06/25/16 22:00 06/27/16 06:34 Colace - PO 100 mg TID SHERITA Administration Heparin Sodium (Porcine) 5,000 unit 06/25/16 22:00 06/26/16 21:38 Heparin - SQ 5,000 unit BID [facility] Administration Hydralazine HCl 50 mg 06/25/16 22:00 06/27/16 06:34 Apresoline - PO 50 mg TID [facility] Administration Isosorbide Mononitrate 30 mg 06/26/16 10:00 06/27/16 09:37 Imdur - PO 30 mg DAILY [facility] Administration Levothyroxine Sodium 12.5 mcg 06/26/16 07:00 06/27/16 06:34 Synthroid - PO 12.5 mcg DAILY@0700 [facility] Administration Ondansetron HCl 4 mg 06/25/16 14:44 Zofran Injection IVPB Q6H PRN NAUSEA Sertraline HCl 50 mg 06/25/16 22:00 06/26/16 21:39 Zoloft - PO 50 mg HS [facility]ER[facility] Administration Sevelamer Carbonate 800 mg 06/25/16 17:30 06/27/16 09:38 Renvela - PO 800 mg TIDCM [facility] Administration Torsemide 40 mg 06/26/16 10:00 06/27/16 09:37 Demadex - PO 40 mg DAILY [facility] Administration Medication Instructions Recorded Amlodipine Besylate [Norvasc -] 5 mg PO BID 06/18/16 Aspirin [ASA -] 81 mg PO WEEKLY 06/18/16 Atorvastatin Ca [Lipitor] 10 mg PO HS 06/18/16 Carvedilol [Coreg] 12.5 mg PO BID 06/18/16 Enalapril Maleate [Vasotec] 20 mg PO BID 06/18/16 Hydrochlorothiazide 25 mg PO Q8H 06/18/16 Levothyroxine [Synthroid -] 25 mcg PO DAILY 06/18/16 Sertraline HCl [Zoloft] 50 mg PO HS 06/18/16 ASSESSMENT/PLAN: 86 y/o lady with h/o dementia , HTN , HL , Diastolic CHF , 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 # HtN better controlled today post HD and meds. hydralazine, torsemide, and norvasc. if BP remains elevated , can increase Imdur # Acute on chronic Kidney failure with ESRD , having Hemodialysis today at bedside s/p permacath , Discussed with who is covering for , hold ACEI for now, started instead Hydralazine. # Acute Diastolic CHF : On HD now, on Demadex diuretic as well # Elevated Troponin , possibel NSTEMI , most likely due to renal failure ; stress test with fixed anterior defect . - cont imdur , coreg , Hydralazine and Norvasc . # H/o hypothyroidism : with decreased TSH. cont synthroid DVT : heparin sq Visit type - Emergency Visit Emergency Visit: Yes ED Registration Date: 06/18/16 Care time: The patient presented to the Emergency Department on the above date and was hospitalized for further evaluation of their emergent condition. - New Patient This patient is new to me today: No - Critical Care Critical Care patient: No - Discharge Referral Referred to [facility] Med P.C.: No
[2016-06-27] MEDS: HEPARIN NA (PORCINE) 5,000 UNITS/ML 1ML VIAL SQ SCH ×2 (12:24→21:26)
--- NOTE | 2016-06-27 12:31 | PN ---
Progress Note (short form) - Note Progress Note: RENAL Pt is asleep. Her health aide says she didnt sleep much last night and was confused comfortable sitting in solarium has n0 complaints Last Vital Signs Temp Pulse Resp BP Pulse Ox 98.5 F 63 20 148/63 93 L 06/26/16 02:07 06/26/16 06:00 06/26/16 06:00 06/26/16 06:00 06/25/16 20:47 lungs decreased breath sounds but mostly clear cvs s1s2 rr with extra beats abd soft ext no edema neuro asleep Current Medications Generic Name Dose Route Start Last Admin Trade Name Freq PRN Reason Stop Dose Admin Acetaminophen 650 mg 06/25/16 14:44 Tylenol - PO Q6H PRN FEVER OR PAIN Amlodipine Besylate 5 mg 06/25/16 22:00 06/27/16 09:38 Norvasc - PO 5 mg BID [facility]ERITA Administration Aspirin 81 mg 06/26/16 10:00 06/27/16 09:36 Asa - PO 81 mg DAILY [facility]ER[facility] Administration Atorvastatin Calcium 10 mg 06/25/16 22:00 06/26/16 21:39 Lipitor - PO 10 mg HS SHERITA Administration Carvedilol 25 mg 06/25/16 22:00 06/27/16 09:37 Coreg - PO 25 mg BID [facility] Administration Docusate Sodium 100 mg 06/25/16 22:00 06/27/16 06:34 Colace - PO 100 mg TID [facility]ERITA Administration Heparin Sodium (Porcine) 5,000 unit 06/25/16 22:00 06/27/16 12:24 Heparin - SQ 5,000 unit BID [facility] Administration Hydralazine HCl 50 mg 06/25/16 22:00 06/27/16 06:34 Apresoline - PO 50 mg TID [facility]ERITA Administration Isosorbide Mononitrate 30 mg 06/26/16 10:00 06/27/16 09:37 Imdur - PO 30 mg DAILY [facility] Administration Levothyroxine Sodium 12.5 mcg 06/26/16 07:00 06/27/16 06:34 Synthroid - PO 12.5 mcg DAILY@0700 [facility] Administration Ondansetron HCl 4 mg 06/25/16 14:44 Zofran Injection IVPB Q6H PRN NAUSEA Sertraline HCl 50 mg 06/25/16 22:00 06/26/16 21:39 Zoloft - PO 50 mg HS [facility] Administration Sevelamer Carbonate 800 mg 06/25/16 17:30 06/27/16 12:24 Renvela - PO 800 mg TIDCM [facility] Administration Torsemide 40 mg 06/26/16 10:00 06/27/16 09:37 Demadex - PO 40 mg DAILY [facility] Administration CBC, BMP 06/27/16 06:00 06/27/16 06:00 IMPRESSION alexsander/ckd seems compensated anemia hyperphosphatemia PLAN pt was dialyzed yesterday to be evaluated again for possible hd by Dr Hernandez tomorrow continue binders. Increased to 1600 mg tid MV
[2016-06-27 16:09] LABS: HEP B SURFACE AB Reactive (.)
--- NOTE | 2016-06-27 17:06 | PN ---
Progress Note, Physician Chief Complaint: Events noted Not in distress at the moment History of Present Illness: Patient was seen and examined. Awake and alert. Chart was reviewed Denies chest pain, SOB or palpitations - Current Medication List Current Medications: Active Medications Acetaminophen (Tylenol -) 650 mg PO Q6H PRN PRN Reason: FEVER OR PAIN Amlodipine Besylate (Norvasc -) 5 mg PO BID [facility] Last Admin: 06/27/16 09:38 Dose: 5 mg Aspirin (Asa -) 81 mg PO DAILY [facility] Last Admin: 06/27/16 09:36 Dose: 81 mg Atorvastatin Calcium (Lipitor -) 10 mg PO HS [facility] Last Admin: 06/26/16 21:39 Dose: 10 mg Carvedilol (Coreg -) 25 mg PO BID [facility] Last Admin: 06/27/16 09:37 Dose: 25 mg Docusate Sodium (Colace -) 100 mg PO TID [facility] Last Admin: 06/27/16 14:26 Dose: 100 mg Heparin Sodium (Porcine) (Heparin -) 5,000 unit SQ BID [facility] Last Admin: 06/27/16 12:24 Dose: 5,000 unit Hydralazine HCl (Apresoline -) 50 mg PO TID [facility] Last Admin: 06/27/16 14:26 Dose: 50 mg Isosorbide Mononitrate (Imdur -) 30 mg PO DAILY [facility] Last Admin: 06/27/16 09:37 Dose: 30 mg Levothyroxine Sodium (Synthroid -) 12.5 mcg PO DAILY@0700 [facility] Last Admin: 06/27/16 06:34 Dose: 12.5 mcg Ondansetron HCl (Zofran Injection) 4 mg IVPB Q6H PRN PRN Reason: NAUSEA Sertraline HCl (Zoloft -) 50 mg PO HS [facility] Last Admin: 06/26/16 21:39 Dose: 50 mg Sevelamer Carbonate (Renvela -) 1,600 mg PO TIDCM [facility] Torsemide (Demadex -) 40 mg PO DAILY [facility] Last Admin: 06/27/16 09:37 Dose: 40 mg - Objective Vital Signs: Vital Signs Temperature 98.2 F 06/27/16 14:00 Pulse Rate 58 L 06/27/16 14:00 Respiratory Rate 20 06/27/16 14:00 Blood Pressure 135/48 06/27/16 14:00 O2 Sat by Pulse Oximetry (%) 97 06/27/16 09:00 Cardiovascular: Yes: Regular Rate and Rhythm, S1, S2 Respiratory: Yes: Diminished Gastrointestinal: Yes: Normal Bowel Sounds, Soft. No: Tenderness Edema: No Additional Findings/Remarks: Review of Systems Constitutional: denies: chills, fever Cardiovascular: denies: chest pain, shortness of breath, palpitation Respiratory: denies: cough, sputum production, hemoptysis Gastrointestinal: denies: nausea, vomiting, diarrhea, constipation or abdominal pain Genitourinary: No symptoms reported Musculoskeletal: No symptoms reported Labs: CBC, BMP 06/27/16 06:00 06/27/16 06:00 Problem List - Problems (1) Acute on chronic diastolic (congestive) heart failure Code(s): I50.33 - ACUTE ON CHRONIC DIASTOLIC (CONGESTIVE) HEART FAILURE (2) Ewdru-[id number] kidney injury Code(s): N17.9 - ACUTE KIDNEY FAILURE, UNSPECIFIED N18.9 - CHRONIC KIDNEY DISEASE, UNSPECIFIED (3) Anemia Code(s): D64.9 - ANEMIA, UNSPECIFIED Qualifiers: Other causes of anemia: chronic disease, kidney (4) CHF (congestive heart failure) Code(s): I50.9 - HEART FAILURE, UNSPECIFIED Qualifiers: Congestive heart failure type: diastolic Congestive heart failure chronicity: acute on chronic Qualified Code(s): I50.33 - Acute on chronic diastolic (congestive) heart failure (5) Hyperlipidemia Code(s): E78.5 - HYPERLIPIDEMIA, UNSPECIFIED Qualifiers: Hyperlipidemia type: pure hypercholesterolemia Qualified Code(s): E78.0 - Pure hypercholesterolemia (6) Hypertension Code(s): I10 - ESSENTIAL (PRIMARY) HYPERTENSION Qualifiers: Hypertension type: essential hypertension Qualified Code(s): I10 - Essential (primary) hypertension (7) Hypothyroidism Code(s): E03.9 - HYPOTHYROIDISM, UNSPECIFIED Qualifiers: Hypothyroidism type: unspecified Qualified Code(s): E03.9 - Hypothyroidism, unspecified (8) ESRD (end stage renal disease) on dialysis Code(s): N18.6 - END STAGE RENAL DISEASE Z99.2 - DEPENDENCE ON RENAL DIALYSIS Assessment/Plan 1. Acute on chronic diastolic failure 2. Hypertension 3. Acute on CKD - elevated BUN/creatinine - now on HD 4. MVP 5. Hyperlipidemia 6. Hypothyroidism 7. Hydrocephelus post STORE MANAGER shunt 8. Non-sustained VT PLAN: 1. Continue HD as per renal service. Currently maintained on Demadex. Monitor renal function 2. Continue Carvedilol 25 mg BID, ASA 81 mg QD, Norvasc 5 mg BID, Lipitor 10 mg QHS, Hydralazine 50 mg TID and Imdur 30 mg QD. Patient is not on ACEI due to renal disease 3. DVT prophylaxis Further plans are to follow Vladimir Herman MD
[2016-06-27] MEDS: SERTRALINE HCL 50 MG TABLET (FP) PO SCH (21:26)
[2016-06-27] MEDS: ATORVASTATIN CA 10 MG TABLET (FP) PO SCH (21:26)
[2016-06-28] MEDS: DOCUSATE SODIUM 100 MG CAPSULE (FP) PO SCH ×3 (06:23→22:59)
[2016-06-28] MEDS: hydrALAZINE HCL 50 MG TABLET (FP) PO SCH ×3 (06:23→23:00)
[2016-06-28] MEDS: LEVOTHYROXINE NA 25 MCG TABLET (FP) PO SCH (06:23)
[2016-06-28] MEDS: SEVELAMER CARBONATE 800 MG TAB (FP) PO SCH ×3 (09:44→17:50)
[2016-06-28] MEDS: POLYETHYLENE GLYCOL 3350 119 GM BTL PO SCH ×2 (09:45→23:00)
[2016-06-28] MEDS: amLODIPine BESYLATE 5 MG TABLET (FP) PO SCH ×2 (09:45→23:00)
[2016-06-28] MEDS: TORSEMIDE 20 MG TABLET (FP) PO SCH (09:45)
[2016-06-28] MEDS: ISOSORBIDE MONONITRATE 30 MG TAB.SR.24H (FP) PO SCH (09:45)
[2016-06-28] MEDS: ASPIRIN 81 MG CHEWABLE TABLETS PO SCH (09:45)
[2016-06-28] MEDS: CARVEDILOL 25 MG TABLET (FP) PO SCH ×2 (09:45→22:59)
[2016-06-28] MEDS: HEPARIN NA (PORCINE) 5,000 UNITS/ML 1ML VIAL SQ SCH ×2 (09:45→23:00)
--- NOTE | 2016-06-28 11:38 | PN ---
Progress Note, Physician Chief Complaint: Events noted Patient has not moved bowel for past 5 days History of Present Illness: Patient was seen and examined. Arousable. Chart was reviewed Denies chest pain, SOB or palpitations - Current Medication List Current Medications: Active Medications Acetaminophen (Tylenol -) 650 mg PO Q6H PRN PRN Reason: FEVER OR PAIN Last Admin: 06/27/16 21:27 Dose: 650 mg Amlodipine Besylate (Norvasc -) [address] [facility] Last Admin: 06/28/16 09:45 Dose: 5 mg Aspirin (Asa -) [address] [facility] Last Admin: 06/28/16 09:45 Dose: 81 mg Atorvastatin Calcium (Lipitor -) 10 mg PO [facility] Last Admin: 06/27/16 21:26 Dose: 10 mg Carvedilol (Coreg -) [address] [facility] Last Admin: 06/28/16 09:45 Dose: 25 mg Docusate Sodium (Colace -) [address] [facility] Last Admin: 06/28/16 06:23 Dose: 100 mg Heparin Sodium (Porcine) (Heparin -) 5,[address] [facility] Last Admin: 06/28/16 09:45 Dose: 5,000 unit Hydralazine HCl (Apresoline -) [address] [facility] Last Admin: 06/28/16 06:23 Dose: 50 mg Isosorbide Mononitrate (Imdur -) [address] [facility] Last Admin: 06/28/16 09:45 Dose: 30 mg Levothyroxine Sodium (Synthroid -) 12.5 mcg PO DAILY@0700 [facility] Last Admin: 06/28/16 06:23 Dose: 12.5 mcg Ondansetron HCl (Zofran Injection) 4 mg IVPB Q6H PRN PRN Reason: NAUSEA Polyethylene Glycol (Miralax (For Daily Use) -) [address] [facility] Last Admin: 06/28/16 09:45 Dose: 17 gm Sertraline HCl (Zoloft -) 50 mg PO [facility] Last Admin: 06/27/16 21:26 Dose: 50 mg Sevelamer Carbonate (Renvela -) 1,[address] [facility] Last Admin: 06/28/16 09:44 Dose: 1,600 mg Torsemide (Demadex -) [address] [facility] Last Admin: 06/28/16 09:45 Dose: 40 mg - Objective Vital Signs: Vital Signs Temperature 98.8 F 06/28/16 06:00 Pulse Rate 62 06/28/16 06:00 Respiratory Rate 18 06/28/16 06:00 Blood Pressure 140/72 06/28/16 06:00 O2 Sat by Pulse Oximetry (%) 97 06/27/16 09:00 Neck: Yes: Supple Cardiovascular: Yes: Regular Rate and Rhythm, S1, S2 Respiratory: Yes: CTA Bilaterally Gastrointestinal: Yes: Normal Bowel Sounds, Soft. No: Tenderness Edema: No Additional Findings/Remarks: Review of Systems Constitutional: denies: chills, fever Cardiovascular: denies: chest pain, shortness of breath, palpitation Respiratory: denies: cough, sputum production, hemoptysis Gastrointestinal: denies: nausea, vomiting, diarrhea, constipation or abdominal pain Genitourinary: No symptoms reported Musculoskeletal: No symptoms reported Problem List - Problems (1) Acute on chronic diastolic (congestive) heart failure Code(s): I50.33 - ACUTE ON CHRONIC DIASTOLIC (CONGESTIVE) HEART FAILURE (2) [id number] kidney injury Code(s): N17.9 - ACUTE KIDNEY FAILURE, UNSPECIFIED N18.9 - CHRONIC KIDNEY DISEASE, UNSPECIFIED (3) Anemia Code(s): D64.9 - ANEMIA, UNSPECIFIED Qualifiers: Other causes of anemia: chronic disease, kidney (4) CHF (congestive heart failure) Code(s): I50.9 - HEART FAILURE, UNSPECIFIED Qualifiers: Congestive heart failure type: diastolic Congestive heart failure chronicity: acute on chronic Qualified Code(s): I50.33 - Acute on chronic diastolic (congestive) heart failure (5) Hyperlipidemia Code(s): E78.5 - HYPERLIPIDEMIA, UNSPECIFIED Qualifiers: Hyperlipidemia type: pure hypercholesterolemia Qualified Code(s): E78.0 - Pure hypercholesterolemia (6) Hypertension Code(s): I10 - ESSENTIAL (PRIMARY) HYPERTENSION Qualifiers: Hypertension type: essential hypertension Qualified Code(s): I10 - Essential (primary) hypertension (7) Hypothyroidism Code(s): E03.9 - HYPOTHYROIDISM, UNSPECIFIED Qualifiers: Hypothyroidism type: unspecified Qualified Code(s): E03.9 - Hypothyroidism, unspecified (8) ESRD (end stage renal disease) on dialysis Code(s): N18.6 - END STAGE RENAL DISEASE Z99.2 - DEPENDENCE ON RENAL DIALYSIS Assessment/Plan 1. Acute on chronic diastolic failure 2. Hypertension 3. Acute on CKD - elevated BUN/creatinine - now on HD 4. MVP 5. Hyperlipidemia 6. Hypothyroidism 7. Hydrocephelus post TRACK INSPECTOR shunt 8. Non-sustained VT PLAN: 1. Continue HD as per renal service. Currently maintained on Demadex. Monitor renal function 2. Continue Carvedilol 25 mg BID, ASA 81 mg QD, Norvasc 5 mg BID, Lipitor 10 mg QHS, Hydralazine 50 mg TID and Imdur 30 mg QD. Patient is not on ACEI due to renal disease 3. DVT prophylaxis 4. Laxatives Further plans are to follow Vladimir Herman MD
--- NOTE | 2016-06-28 13:16 | PN ---
Physical Exam: SUBJECTIVE: Patient seen and examined OBJECTIVE: Vital Signs Period Temp Pulse Resp BP Sys/Alan Pulse Ox Last 24 Hr 98.2 F-99.1 F 58-67 18-20 135-148/45-72 GENERAL: The patient is awake, alert, and fully oriented, in no acute distress. HEAD: Normal with no signs of trauma. NECK: Full range of motion, supple., mild jvp distension LUNGS: Breath sounds equal. no rale, no crackles, no wheeze HEART: s1s2 normal, as murmur present radiating to neck ABDOMEN: Soft, nontender, nondistended, normoactive bowel sounds, no guarding, no rebound, no hepatosplenomegaly, no masses. EXTREMITIES: 2+ pulses, warm, well-perfused, no pedal edema Laboratory Results - last 24 hr 06/25/16 15:40 Hepatitis A Ab Total Negative Hep Bs Antigen Negative Hep Bs Antibody Reactive Hep B Core Total Ab Negative Hepatitis C Antibody <0.1 Active Medications Generic Name Dose Route Start Last Admin Trade Name Freq PRN Reason Stop Dose Admin Acetaminophen 650 mg 06/25/16 14:44 06/27/16 21:27 Tylenol - PO 650 mg Q6H PRN Administration FEVER OR PAIN Amlodipine Besylate 5 mg 06/25/16 22:00 06/28/16 09:45 Norvasc - PO 5 mg BID SHERITA Administration Aspirin 81 mg 06/26/16 10:00 06/28/16 09:45 Asa - PO 81 mg DAILY SHERITA Administration Atorvastatin Calcium 10 mg 06/25/16 22:00 06/27/16 21:26 Lipitor - PO 10 mg HS SHERITA Administration Carvedilol 25 mg 06/25/16 22:00 06/28/16 09:45 Coreg - PO 25 mg BID SHERITA Administration Docusate Sodium 100 mg 06/25/16 22:00 06/28/16 06:23 Colace - PO 100 mg TID SHERITA Administration Heparin Sodium (Porcine) 5,000 unit 06/25/16 22:00 06/28/16 09:45 Heparin - SQ 5,000 unit BID SHERITA Administration Hydralazine HCl 50 mg 06/25/16 22:00 06/28/16 06:23 Apresoline - PO 50 mg TID SHERITA Administration Isosorbide Mononitrate 30 mg 06/26/16 10:00 06/28/16 09:45 Imdur - PO 30 mg DAILY SHERITA Administration Levothyroxine Sodium 12.5 mcg 06/26/16 07:00 06/28/16 06:23 Synthroid - PO 12.5 mcg DAILY@0700 SHERITA Administration Ondansetron HCl 4 mg 06/25/16 14:44 Zofran Injection IVPB Q6H PRN NAUSEA Polyethylene Glycol 17 gm 06/28/16 10:00 06/28/16 09:45 Miralax (For Daily Use) - PO 17 gm BID SHERITA Administration Sertraline HCl 50 mg 06/25/16 22:00 06/27/16 21:26 Zoloft - PO 50 mg HS SHERITA Administration Sevelamer Carbonate 1,600 mg 06/27/16 13:29 06/28/16 11:48 Renvela - PO 1,600 mg TIDCM SHERITA Administration Torsemide 40 mg 06/26/16 10:00 06/28/16 09:45 Demadex - PO 40 mg DAILY SHERITA Administration ASSESSMENT/PLAN: This is an 86-year-old woman with a history of dementia, HTN, MVP, hyperlipidemia, hypothyroidism, diastolic CHF, [employer] shunt, and CKD 4 who presented with shortness of breath. 1. Acute on chronic diastolic heart failure - chest clear , no pedal edema, mild jvp distension, denies sob - on coreg 25 bid , hydralazine 50 tid and norvasc 5mg bid , imdur 30 - on demadex 40mg daily and HD - weight 50.53 - cardiology on case 2. Acute kidney injury on stage 4 CKD - could be due to over diuresis in her previous admission in [facility], base line creat 3.0 - patient on HD, creatnine decreased to 4.2 - continue with demadex 40mg daily - Nephrology consult appreciated;: -c/w bicarb, 4. uncontrolled Hypertension - 148/72 - on Norvasc 5 bid , Coreg 25 bid, - on hydralazine 50 tid, imdur 30 daily - Vasotec held secondary to SARAI with hyperkalemia - low salt diet - monitor blood pressure 5. Hypothyroidism - tsh 0.08, t4 normal synthyroid decreased to 12.5 6. Hyperlipidemia - Continue Lipitor 7 constipation colace 100mg tid miralex 17gm bid fluid : orally allowed, electrolyte follow bmp tomorrow nutrition : renal diet dvt pro on heparin Dispo admit in med surg Visit type - Emergency Visit Emergency Visit: Yes ED Registration Date: 06/18/16 Care time: The patient presented to the Emergency Department on the above date and was hospitalized for further evaluation of their emergent condition. - New Patient This patient is new to me today: No - Critical Care Critical Care patient: No
--- NOTE | 2016-06-28 13:18 | PN ---
Progress Note, Physician History of Present Illness: Pt seen and examined at bedside. She feels better today. - Current Medication List Current Medications: Active Medications Acetaminophen (Tylenol -) 650 mg PO Q6H PRN PRN Reason: FEVER OR PAIN Last Admin: 06/27/16 21:27 Dose: 650 mg Amlodipine Besylate (Norvasc -) 5 mg PO BID [facility] Last Admin: 06/28/16 09:45 Dose: 5 mg Aspirin (Asa -) 81 mg PO DAILY [facility] Last Admin: 06/28/16 09:45 Dose: 81 mg Atorvastatin Calcium (Lipitor -) 10 mg PO HS [facility] Last Admin: 06/27/16 21:26 Dose: 10 mg Carvedilol (Coreg -) 25 mg PO BID [facility] Last Admin: 06/28/16 09:45 Dose: 25 mg Docusate Sodium (Colace -) 100 mg PO TID [facility] Last Admin: 06/28/16 06:23 Dose: 100 mg Heparin Sodium (Porcine) (Heparin -) 5,000 unit SQ BID [facility] Last Admin: 06/28/16 09:45 Dose: 5,000 unit Hydralazine HCl (Apresoline -) 50 mg PO TID [facility] Last Admin: 06/28/16 06:23 Dose: 50 mg Isosorbide Mononitrate (Imdur -) 30 mg PO DAILY [facility] Last Admin: 06/28/16 09:45 Dose: 30 mg Levothyroxine Sodium (Synthroid -) 12.5 mcg PO DAILY@0700 [facility] Last Admin: 06/28/16 06:23 Dose: 12.5 mcg Ondansetron HCl (Zofran Injection) 4 mg IVPB Q6H PRN PRN Reason: NAUSEA Polyethylene Glycol (Miralax (For Daily Use) -) 17 gm PO BID [facility] Last Admin: 06/28/16 09:45 Dose: 17 gm Sertraline HCl (Zoloft -) 50 mg PO HS [facility] Last Admin: 06/27/16 21:26 Dose: 50 mg Sevelamer Carbonate (Renvela -) 1,600 mg PO TIDCM [facility] Last Admin: 06/28/16 11:48 Dose: 1,600 mg Torsemide (Demadex -) 40 mg PO DAILY [facility] Last Admin: 06/28/16 09:45 Dose: 40 mg - Objective Vital Signs: Vital Signs Temperature 98.8 F 06/28/16 06:00 Pulse Rate 62 06/28/16 06:00 Respiratory Rate 18 06/28/16 06:00 Blood Pressure 140/72 06/28/16 06:00 O2 Sat by Pulse Oximetry (%) 97 06/27/16 09:00 Constitutional: Yes: Calm Eyes: Yes: Conjunctiva Clear HENT: Yes: Atraumatic Cardiovascular: Yes: S1, S2 Respiratory: Yes: CTA Bilaterally Gastrointestinal: Yes: Soft Musculoskeletal: Yes: WNL Edema: No Neurological: Yes: Oriented Psychiatric: Yes: Oriented Labs: CBC, BMP 06/27/16 06:00 06/27/16 06:00 INR, PTT INR 1.05 (0.82-1.09) 06/25/16 05:35 Problem List - Problems (1) Acute renal failure Code(s): N17.9 - ACUTE KIDNEY FAILURE, UNSPECIFIED (2) CHF (congestive heart failure) Code(s): I50.9 - HEART FAILURE, UNSPECIFIED Qualifiers: Congestive heart failure type: diastolic Congestive heart failure chronicity: acute on chronic Qualified Code(s): I50.33 - Acute on chronic diastolic (congestive) heart failure (3) Hypertension Code(s): I10 - ESSENTIAL (PRIMARY) HYPERTENSION Qualifiers: Hypertension type: essential hypertension Qualified Code(s): I10 - Essential (primary) hypertension (4) Hypothyroidism Code(s): E03.9 - HYPOTHYROIDISM, UNSPECIFIED Qualifiers: Hypothyroidism type: unspecified Qualified Code(s): E03.9 - Hypothyroidism, unspecified (5) Shortness of breath Code(s): R06.02 - SHORTNESS OF BREATH (6) Chronic kidney disease (CKD) Code(s): N18.9 - CHRONIC KIDNEY DISEASE, UNSPECIFIED Assessment/Plan Current Medications Generic Name Dose Route Start Last Admin Trade Name Freq PRN Reason Stop Dose Admin Acetaminophen 650 mg 06/25/16 14:44 06/27/16 21:27 Tylenol - PO 650 mg Q6H PRN Administration FEVER OR PAIN Amlodipine Besylate 5 mg 06/25/16 22:00 06/28/16 09:45 Norvasc - PO 5 mg BID SHERITA Administration Aspirin 81 mg 06/26/16 10:00 06/28/16 09:45 Asa - PO 81 mg DAILY SHERITA Administration Atorvastatin Calcium 10 mg 06/25/16 22:00 06/27/16 21:26 Lipitor - PO 10 mg HS SHERITA Administration Carvedilol 25 mg 06/25/16 22:00 06/28/16 09:45 Coreg - PO 25 mg BID SHERITA Administration Docusate Sodium 100 mg 06/25/16 22:00 06/28/16 06:23 Colace - PO 100 mg TID SHERITA Administration Heparin Sodium (Porcine) 5,000 unit 06/25/16 22:00 06/28/16 09:45 Heparin - SQ 5,000 unit BID SHERITA Administration Hydralazine HCl 50 mg 06/25/16 22:00 06/28/16 06:23 Apresoline - PO 50 mg TID SHERITA Administration Isosorbide Mononitrate 30 mg 06/26/16 10:00 06/28/16 09:45 Imdur - PO 30 mg DAILY SHERITA Administration Levothyroxine Sodium 12.5 mcg 06/26/16 07:00 06/28/16 06:23 Synthroid - PO 12.5 mcg DAILY@0700 SHERITA Administration Ondansetron HCl 4 mg 06/25/16 14:44 Zofran Injection IVPB Q6H PRN NAUSEA Polyethylene Glycol 17 gm 06/28/16 10:00 06/28/16 09:45 Miralax (For Daily Use) - PO 17 gm BID SHERITA Administration Sertraline HCl 50 mg 06/25/16 22:00 06/27/16 21:26 Zoloft - PO 50 mg HS SHERITA Administration Sevelamer Carbonate 1,600 mg 06/27/16 13:29 06/28/16 11:48 Renvela - PO 1,600 mg TIDCM SHERITA Administration Torsemide 40 mg 06/26/16 10:00 06/28/16 09:45 Demadex - PO 40 mg DAILY SHERITA Administration Impression 1. ESRD 2. SARAI 3. HTN 4. CHF 5. pleural effusion 6. hypothyroidism 7. hyperlipidemia 8. MVP Plan - will arrange for HD in the am - repeat labs in am - repeat cxr tomorrow - case again discussed with family - arrange for HD in [facility] under Dr Maradiaga please - cont demadex - daily weights - cont pt/rehab - renal diet Dr Hernandez
--- NOTE | 2016-06-28 15:02 | PN ---
Teaching Attending Note Name of Resident: Maurice Ruffin ATTENDING PHYSICIAN STATEMENT I saw and evaluated the patient. I reviewed the resident's note and discussed the case with the resident. I agree with the resident's findings and plan as documented. SUBJECTIVE: no fever or chills, no abd pain , no cough OBJECTIVE: NAD . awake , pleasant CV: RRR. 2/6 SM at [facility] , LUSB , with radiation to carotids . 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 she presented with SOB , was found to have cr above base line , with D CHF , worsening renal failure and trop leak 1- SARAI :renal function and volume status improved . 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 NSTEMI - stress test with fixed anterior defect . - cont imdur , and coreg . - cont HZN and Norvasc . 4- HTN : cont current meds . 5- h/o hypothyroidism : with decreased TSH. cont decreased synthroid dose 6- DVT : heparin sq dispo : possible dc tomorrow if out pt HD is arranged
[2016-06-28] MEDS: ATORVASTATIN CA 10 MG TABLET (FP) PO SCH (23:00)
[2016-06-28] MEDS: SERTRALINE HCL 50 MG TABLET (FP) PO SCH (23:00)
[2016-06-29] MEDS: DOCUSATE SODIUM 100 MG CAPSULE (FP) PO SCH ×2 (06:15→14:08)
[2016-06-29] MEDS: LEVOTHYROXINE NA 25 MCG TABLET (FP) PO SCH (06:15)
[2016-06-29] MEDS: hydrALAZINE HCL 50 MG TABLET (FP) PO SCH ×2 (06:15→14:08)
[2016-06-29] MEDS: SEVELAMER CARBONATE 800 MG TAB (FP) PO SCH ×2 (08:12→12:51)
--- NOTE | 2016-06-29 09:05 | PN ---
Progress Note (short form) - Note Progress Note: Chief Complaint: Events noted, notes reviewed, denies any chest pain or dyspnea History of Present Illness: Seen and examined on telemetry. Events noted, notes reviewed, denies any chest pain or dyspnea Echocardiography revealed normal LV size and function; concentric left ventricular hypertrophy, E/A reversal consisted with decreased LV diastolic compliance MPI study revealed anterior fixed defect compatible with attenuation with normal LV EF - Current Medication List Current Medications Acetaminophen (Tylenol -) 650 mg PO Q6H PRN PRN Reason: FEVER OR PAIN Last Admin: 06/27/16 21:27 Dose: 650 mg Amlodipine Besylate (Norvasc -) 5 mg PO BID [facility] Last Admin: 06/28/16 23:00 Dose: 5 mg Aspirin (Asa -) 81 mg PO DAILY [facility] Last Admin: 06/28/16 09:45 Dose: 81 mg Atorvastatin Calcium (Lipitor -) 10 mg PO HS [facility] Last Admin: 06/28/16 23:00 Dose: 10 mg Carvedilol (Coreg -) 25 mg PO BID [facility] Last Admin: 06/28/16 22:59 Dose: 25 mg Docusate Sodium (Colace -) 100 mg PO TID [facility] Last Admin: 06/29/16 06:15 Dose: 100 mg Epoetin Pasquale (Procrit -) 3,000 unit IVPUSH ONCE ONE Stop: 06/29/16 13:20 Heparin Sodium (Porcine) (Heparin -) 5,000 unit SQ BID [facility] Last Admin: 06/28/16 23:00 Dose: 5,000 unit Hydralazine HCl (Apresoline -) 50 mg PO TID [facility] Last Admin: 06/29/16 06:15 Dose: 50 mg Isosorbide Mononitrate (Imdur -) 30 mg PO DAILY [facility] Last Admin: 06/28/16 09:45 Dose: 30 mg Levothyroxine Sodium (Synthroid -) 12.5 mcg PO DAILY@0700 [facility] Last Admin: 06/29/16 06:15 Dose: 12.5 mcg Ondansetron HCl (Zofran Injection) 4 mg IVPB Q6H PRN PRN Reason: NAUSEA Polyethylene Glycol (Miralax (For Daily Use) -) 17 gm PO BID [facility] Last Admin: 06/28/16 23:00 Dose: 17 gm Sertraline HCl (Zoloft -) 50 mg PO HS [facility] Last Admin: 06/28/16 23:00 Dose: 50 mg Sevelamer Carbonate (Renvela -) 1,600 mg PO TIDCM [facility] Last Admin: 06/29/16 08:12 Dose: 1,600 mg Torsemide (Demadex -) 40 mg PO DAILY [facility] Last Admin: 06/28/16 09:45 Dose: 40 mg Review of Systems Cardiovascular: As noted above Respiratory: denies: Cough or Sputum Production Gastrointestinal: denies: Nausea, Vomiting, Diarrhea, Constipation or Abdominal Discomfort Musculoskeletal: No Symptoms Reported Endocrine: No Symptoms Reported - Objective Vital Signs: Last Vital Signs Temp Pulse Resp BP Pulse Ox 98 F 64 20 154/75 96 06/29/16 02:00 06/29/16 06:00 06/29/16 06:00 06/29/16 06:00 06/28/16 21:01 Constitutional: No Distress, Calm, Thin Neck: Supple Negative JVD No bruit Cardiovascular: S1 S2 Regular Rate and Rhythm Grade 1/6 SM Respiratory: Diminished at the Bases Bilaterally Gastrointestinal: Soft Benign Normal Bowel Sounds Ext: No Edema Labs: CBC, BMP 06/27/16 06:00 06/27/16 06:00 Hepatic Panel Total Bilirubin 0.2 mg/dL (0.2-1.0) D 06/26/16 06:00 AST 12 U/L (15-37) L D 06/26/16 06:00 ALT 16 U/L (12-78) D 06/26/16 06:00 Alkaline Phosphatase 56 U/L (45-117) 06/26/16 06:00 Albumin 2.3 g/dl (3.4-5.0) L 06/26/16 06:00 Assessment/Plan ASSESSMENT: 1. Acute on chronic diastolic class II-III NYHA classification LV failure, resolved 2. Hypertensive urgency, labile blood pressure 3. 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 Acute on CKD initiated on HD 5. MVP 6. 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 Hypothyroidism abnormal TSH 9. Anemia PLAN: 1. Continue Carvedilol 2. Continue Norvasc 3. Continue Hydralazine 4. Continue Nitrates 5. Continue ASA 6. Initiate LORIN or ARBS unless contraindicated 7. Continue Lipitor 8. HD as per renal service Ayesha RowanD.
[2016-06-29] MEDS ORDERED: EPOETIN ALFA 3,000 UNIT/1 ML ML IVPUSH ONE (10:00)
[2016-06-29] MEDS ORDERED: VALSARTAN 80 MG TABLET (UD) PO SCH (10:00)
[2016-06-29 11:43] LABS: CALCIUM 8.1 mg/dL (8.5-10.1); CREATININE 5.7 mg/dL (0.55-1.02)
[2016-06-29] MEDS: ISOSORBIDE MONONITRATE 30 MG TAB.SR.24H (FP) PO SCH (12:53)
[2016-06-29] MEDS: CARVEDILOL 25 MG TABLET (FP) PO SCH (12:53)
[2016-06-29] MEDS: amLODIPine BESYLATE 5 MG TABLET (FP) PO SCH (14:05)
[2016-06-29] MEDS: TORSEMIDE 20 MG TABLET (FP) PO SCH (14:06)
[2016-06-29] MEDS: HEPARIN NA (PORCINE) 5,000 UNITS/ML 1ML VIAL SQ SCH (14:06)
[2016-06-29] MEDS: POLYETHYLENE GLYCOL 3350 119 GM BTL PO SCH (14:06)
[2016-06-29] MEDS: ASPIRIN 81 MG CHEWABLE TABLETS PO SCH (14:07)
--- NOTE | 2016-06-29 15:43 | DS ---
Physical Exam: SUBJECTIVE: Patient seen and examined OBJECTIVE: Vital Signs Period Temp Pulse Resp BP Sys/Alan Pulse Ox Last 24 Hr 98 F-99.2 F 59-68 18-20 128-200/41-85 96-97 PHYSICAL EXAM GENERAL: The patient is awake, alert, and fully oriented, in no acute distress. HEAD: Normal with no signs of trauma. NECK: Full range of motion, supple., mild jvp distension LUNGS: Breath sounds equal. no rale, no crackles, no wheeze HEART: s1s2 normal, as murmur present radiating to neck ABDOMEN: Soft, nontender, nondistended, normoactive bowel sounds, no guarding, no rebound, no hepatosplenomegaly, no masses. EXTREMITIES: 2+ pulses, warm, well-perfused, no pedal edema LABS Laboratory Results - last 24 hr 06/29/16 10:50 Sodium 137 Potassium 3.8 Chloride 98 Carbon Dioxide 31 Anion Gap 8 BUN 85 H D Creatinine 5.7 H D Random Glucose 104 Calcium 8.1 L CBCD WBC 3.8 K/mm3 (4.0-10.0) L 06/27/16 06:00 RBC 3.17 M/mm3 (3.60-5.2) L 06/27/16 06:00 Hgb 8.7 GM/dL (10.7-15.3) L 06/27/16 06:00 Hct 26.9 % (32.4-45.2) L 06/27/16 06:00 MCV 84.7 fl (80-96) 06/27/16 06:00 MCHC 32.4 g/dl (32.0-36.0) 06/27/16 06:00 RDW 14.4 % (11.6-15.6) 06/27/16 06:00 Plt Count 172 K/MM3 (134-434) 06/27/16 06:00 MPV 8.7 fl (7.5-11.1) 06/27/16 06:00 CMP Sodium 137 mmol/L (136-145) 06/29/16 10:50 Potassium 3.8 mmol/L (3.5-5.1) 06/29/16 10:50 Chloride 98 mmol/L (98-107) 06/29/16 10:50 Carbon Dioxide 31 mmol/L (21-32) 06/29/16 10:50 Anion Gap 8 (8-16) 06/29/16 10:50 BUN 85 mg/dL (7-18) H D 06/29/16 10:50 Creatinine 5.7 mg/dL (0.55-1.02) H D 06/29/16 10:50 Creat Clearance w eGFR 8.40 (>60) 06/26/16 06:00 Random Glucose 104 mg/dL (74-106) 06/29/16 10:50 Calcium 8.1 mg/dL (8.5-10.1) L 06/29/16 10:50 Total Bilirubin 0.2 mg/dL (0.2-1.0) D 06/26/16 06:00 AST 12 U/L (15-37) L D 06/26/16 06:00 ALT 16 U/L (12-78) D 06/26/16 06:00 Alkaline Phosphatase 56 U/L (45-117) 06/26/16 06:00 Total Protein 5.8 g/dl (6.4-8.2) L 06/26/16 06:00 Albumin 2.3 g/dl (3.4-5.0) L 06/26/16 06:00 CARDIAC ENZYMES Creatine Kinase 142 IU/L (26-192) 06/18/16 19:30 Troponin I 0.06 ng/ml (0.00-0.05) H 06/20/16 05:50 Laboratory Tests 06/18/16 06/19/16 06/19/16 10:25 05:45 07:00 INR PTT (Actin FS) BUN 127 H* 119 H* Creatinine 5.6 H 4.1 H D B-Natriuretic Peptide 11301.96 H Triglycerides Cholesterol Total LDL Cholesterol HDL Cholesterol TSH Free T4 Urine Color Urine Appearance Urine pH Ur Specific Marshall Urine Protein Urine Glucose (UA) Urine Ketones Urine Blood Urine Nitrite Urine Bilirubin Urine Urobilinogen U Random Total Protein 46 H Ur Random Sodium 74 Ur Random Potassium 16.3 Ur Random Chloride 64 Ur Random Urea Nitrogn 685 Urine Creatinine 68.8 Hepatitis A Ab Total Hep Bs Antigen Hep Bs Antibody Hep B Core Total Ab Hepatitis C Antibody 06/19/16 06/20/16 06/21/16 07:00 05:50 05:48 INR PTT (Actin FS) BUN 117 H* 124 H* Creatinine 4.1 H 5.3 H D B-Natriuretic Peptide Triglycerides Cholesterol Total LDL Cholesterol HDL Cholesterol TSH 0.08 L Free T4 Urine Color Straw Urine Appearance Clear Urine pH 5.0 Ur Specific Marshall 1.012 Urine Protein Negative Urine Glucose (UA) Negative Urine Ketones Negative Urine Blood Negative Urine Nitrite Negative Urine Bilirubin Negative Urine Urobilinogen Negative U Random Total Protein Ur Random Sodium Ur Random Potassium Ur Random Chloride Ur Random Urea Nitrogn Urine Creatinine Hepatitis A Ab Total Hep Bs Antigen Hep Bs Antibody Hep B Core Total Ab Hepatitis C Antibody 06/22/16 06/23/16 06/24/16 05:35 05:35 06:00 INR PTT (Actin FS) BUN 141 H* 138 H* 144 H* Creatinine 6.3 H 6.0 H 6.4 H B-Natriuretic Peptide Triglycerides 112 Cholesterol 116 Total LDL Cholesterol 82 HDL Cholesterol 35 L TSH 0.07 L D Free T4 1.09 Urine Color Urine Appearance Urine pH Ur Specific Marshall Urine Protein Urine Glucose (UA) Urine Ketones Urine Blood Urine Nitrite Urine Bilirubin Urine Urobilinogen U Random Total Protein Ur Random Sodium Ur Random Potassium Ur Random Chloride Ur Random Urea Nitrogn Urine Creatinine Hepatitis A Ab Total Hep Bs Antigen Hep Bs Antibody Hep B Core Total Ab Hepatitis C Antibody 06/25/16 06/25/16 06/25/16 05:35 05:35 15:40 INR 1.05 PTT (Actin FS) 28.0 BUN 142 H* Creatinine 6.7 H B-Natriuretic Peptide Triglycerides Cholesterol Total LDL Cholesterol HDL Cholesterol TSH Free T4 Urine Color Urine Appearance Urine pH Ur Specific Marshall Urine Protein Urine Glucose (UA) Urine Ketones Urine Blood Urine Nitrite Urine Bilirubin Urine Urobilinogen U Random Total Protein Ur Random Sodium Ur Random Potassium Ur Random Chloride Ur Random Urea Nitrogn Urine Creatinine Hepatitis A Ab Total Negative Hep Bs Antigen Negative Hep Bs Antibody Reactive Hep B Core Total Ab Negative Hepatitis C Antibody <0.1 06/25/16 06/26/16 06/27/16 17:40 06:00 06:00 INR PTT (Actin FS) BUN 64 H D 85 H D 50 H D Creatinine 2.9 H D 4.9 H D 4.2 H B-Natriuretic Peptide Triglycerides Cholesterol Total LDL Cholesterol HDL Cholesterol TSH Free T4 Urine Color Urine Appearance Urine pH Ur Specific Marshall Urine Protein Urine Glucose (UA) Urine Ketones Urine Blood Urine Nitrite Urine Bilirubin Urine Urobilinogen U Random Total Protein Ur Random Sodium Ur Random Potassium Ur Random Chloride Ur Random Urea Nitrogn Urine Creatinine Hepatitis A Ab Total Hep Bs Antigen Hep Bs Antibody Hep B Core Total Ab Hepatitis C Antibody 06/29/16 10:50 INR PTT (Actin FS) BUN 85 H D Creatinine 5.7 H D B-Natriuretic Peptide Triglycerides Cholesterol Total LDL Cholesterol HDL Cholesterol TSH Free T4 Urine Color Urine Appearance Urine pH Ur Specific Marshall Urine Protein Urine Glucose (UA) Urine Ketones Urine Blood Urine Nitrite Urine Bilirubin Urine Urobilinogen U Random Total Protein Ur Random Sodium Ur Random Potassium Ur Random Chloride Ur Random Urea Nitrogn Urine Creatinine Hepatitis A Ab Total Hep Bs Antigen Hep Bs Antibody Hep B Core Total Ab Hepatitis C Antibody myocardial perfusion scan: small zone of anterior fixed defect from base to mid cavity compatibole with soft tissue attenuation, normal LV contraction with LV ejection fraction of 59% renal usg; atrophic and echogenic kidneys consistent with chronic medical renal ds. 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 She initially presented to [facility] for lower extremity edema, L>R, and at that time was noted to have a BP of 220 systolic. Examination ( b/l crackels ) and investigations ( cxr showed left plural effusion )were done and patient was diagnosed with acute on chronic diastolic heart failure, Acute kidney injury on ckd, hyperttension, hypothyroidism. For diastolic heart failure patient was stared on diuretic but her kidney function started deterioration on diuretics so patient started on HD and supervisor endless track vehicle Dr Nicole was consulted. For SARAI on CKD and patient renal function was deteorating on diuretic. Patient family was expalined regarding the need f Dialysis and once family agreed permacath was placed and patien started on HD. Patient recieved 3 HD in hospital. For HTN patient was started on coreg , hydralazine, norvasc, imdur patient haley inhibitor were stopped as patient renal function was deteorating. But now as patient is on HD she is again started on ARB. For hyopthyroisim patient t4 and moises was checked and his t4 was normal but tsh was low so his levothyroxin was decreased to 12.5. Patient also found to have elevated trop i which could be due to demand ischemia and for which serial trop i was done which trend down, myocardial perfusion scan was done and report mentioned above Now patient is in stable condition denies chest pain, sob, leg edema. patient is discharged in stable condition. consults Dr nicole, Dr robb Follow up with your PCP Dr srini aburto Follow up with your condominium association manager Follow up with supervisor endless track vehicle Dr nicole take all your medications as prescribed monitor your blood pressure Your out patient Dialysis is at at [facility] on [facility], set up by case worker. under Dr Palomo dialysis is on tuesday, , tuesday if develop nausea, vomiting chest pain shortness of breath contact doctor or come to hospital. we had increased your hydralazine from 25 mg to 50 mg three times a day we had increased your carvedilol from 12.5 to 25 mg twice daily Take valsartan 80 mg daily we had decreased your levothyroxine to 12.5mg daily from 25 mg daily. you need repeat thyroid function in 6-8 weeks Date of Admission:06/18/16 Date of Discharge: 06/29/16 Minutes to complete discharge: 45 Discharge Summary Reason For Visit: LINGULAR PNA,CHF,ARF Current Active Problems Acute on chronic diastolic (congestive) heart failure (Acute) [id number] kidney injury (Acute) DVT prophylaxis (Acute) ESRD (end stage renal disease) on dialysis (Acute) Hypertensive urgency (Acute) Shortness of breath (Acute) Hyperlipidemia (Chronic) Hypertension (Chronic) Hypothyroidism (Chronic) Condition: Stable - Instructions Diet, Activity, Other Instructions: Follow up with your PCP Dr srini aburto Follow up with your condominium association manager Follow up with supervisor endless track vehicle Dr nicole take all your medications as prescribed monitor your blood pressure Your out patient Dialysis is at at [facility], set up by case worker. under Dr Palomo dialysis is on tuesday, , tuesday if develop nausea, vomiting chest pain shortness of breath contact doctor or come to hospital. we had increased your hydralazine from 25 mg to 50 mg three times a day we had increased your carvedilol from 12.5 to 25 mg twice daily Take valsartan 80 mg daily we had decreased your levothyroxine to 12.5mg daily from 25 mg daily. you need repeat thyroid function in 6-8 weeks Referrals: Sandi Jo MD [Primary Care Provider] - 1 Week Cody Nicole MD [Staff Physician] - 1 Week Disposition: HOME - Home Medications Comprehensive Discharge Medication List: Ambulatory Orders Aspirin [ASA -] 81 mg PO WEEKLY 06/18/16 Sertraline HCl [Zoloft] 50 mg PO HS 06/18/16 Amlodipine Besylate [Norvasc -] 5 mg PO BID #60 tablet 06/29/16 Atorvastatin Ca [Lipitor] 10 mg PO HS #30 tablet 06/29/16 Carvedilol [Coreg -] 25 mg PO BID #50 tablet 06/29/16 Docusate Sodium [Colace -] 100 mg PO TID #60 capsule 06/29/16 Hydralazine HCl [Apresoline -] 50 mg PO TID #60 tablet 06/29/16 Isosorbide Mononitrate [Imdur -] 30 mg PO DAILY #30 tab.sr.24h 06/29/16 Levothyroxine [Synthroid -] 12.5 mcg PO DAILY@0700 #30 tablet 06/29/16 Polyethylene Glycol 3350 [Miralax 119 gm Btl -] 17 gm PO BID #30 bottle Sevelamer Carbonate [Renvela -] 1,600 mg PO TIDCM #60 tab 06/29/16 Torsemide [Demadex -] 40 mg PO DAILY #30 tablet 06/29/16 Valsartan [Diovan] 80 mg PO DAILY #30 tablet 06/29/16 This patient is new to me today: No Emergency Visit: Yes ED Registration Date: 06/18/16 Care time: The patient presented to the Emergency Department on the above date and was hospitalized for further evaluation of their emergent condition. Critical Care patient: No - Discharge Referral Referred to [facility] Med P.C.: No
--- NOTE | 2016-06-29 15:50 | PN ---
Teaching Attending Note Name of Resident: Maurice Ruffin ATTENDING PHYSICIAN STATEMENT I saw and evaluated the patient. I reviewed the resident's note and discussed the case with the resident. I agree with the resident's findings and plan as documented. SUBJECTIVE: no fever or chills, no SOB OBJECTIVE: NAD . awake , pleasant CV: RRR. 2/6 SM at [facility] , LUSB , with radiation to carotids . 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 she presented with SOB , was found to have cr above base line , with D CHF , worsening renal failure and trop leak 1- SARAI :HD today . HD arranged at [facility]. f/u without pt oyster culturist 2- Acute D CHF : with HD 3- Trop leak : ? NSTEMI - stress test with fixed anterior defect . - cont imdur , and coreg . - cont HZN and Norvasc . 4- HTN : cont current meds . 5- h/o hypothyroidism : with decreased TSH. cont decreased synthroid dose. needs TFTS in 6-8 weeks 6- DVT : heparin sq
--- NOTE | 2016-06-29 16:12 | PN ---
Progress Note, Physician History of Present Illness: Pt seen and examined at bedside. She is tolerating HD. - Current Medication List Current Medications: Active Medications Acetaminophen (Tylenol -) 650 mg PO Q6H PRN PRN Reason: FEVER OR PAIN Last Admin: 06/27/16 21:27 Dose: 650 mg Amlodipine Besylate (Norvasc -) 5 mg PO BID [facility] Last Admin: 06/29/16 14:05 Dose: 5 mg Aspirin (Asa -) 81 mg PO DAILY [facility] Last Admin: 06/29/16 14:07 Dose: 81 mg Atorvastatin Calcium (Lipitor -) 10 mg PO HS [facility] Last Admin: 06/28/16 23:00 Dose: 10 mg Carvedilol (Coreg -) 25 mg PO BID [facility] Last Admin: 06/29/16 12:53 Dose: 25 mg Docusate Sodium (Colace -) 100 mg PO TID [facility] Last Admin: 06/29/16 14:08 Dose: 100 mg Heparin Sodium (Porcine) (Heparin -) 5,000 unit SQ BID [facility] Last Admin: 06/29/16 14:06 Dose: 5,000 unit Hydralazine HCl (Apresoline -) 50 mg PO TID [facility] Last Admin: 06/29/16 14:08 Dose: 50 mg Isosorbide Mononitrate (Imdur -) 30 mg PO DAILY [facility] Last Admin: 06/29/16 12:53 Dose: 30 mg Levothyroxine Sodium (Synthroid -) 12.5 mcg PO DAILY@0700 [facility] Last Admin: 06/29/16 06:15 Dose: 12.5 mcg Ondansetron HCl (Zofran Injection) 4 mg IVPB Q6H PRN PRN Reason: NAUSEA Polyethylene Glycol (Miralax (For Daily Use) -) 17 gm PO BID [facility] Last Admin: 06/29/16 14:06 Dose: 17 gm Sertraline HCl (Zoloft -) 50 mg PO HS [facility] Last Admin: 06/28/16 23:00 Dose: 50 mg Sevelamer Carbonate (Renvela -) 1,600 mg PO TIDCM [facility] Last Admin: 06/29/16 12:51 Dose: Not Given Torsemide (Demadex -) 40 mg PO DAILY [facility] Last Admin: 06/29/16 14:06 Dose: 40 mg Valsartan (Diovan -) 80 mg PO DAILY [facility] Last Admin: 06/29/16 14:07 Dose: 80 mg - Objective Vital Signs: Vital Signs Temperature 98.6 F 06/29/16 09:31 Pulse Rate 64 06/29/16 13:50 Respiratory Rate 18 06/29/16 13:50 Blood Pressure 169/83 06/29/16 13:50 O2 Sat by Pulse Oximetry (%) 97 06/29/16 09:00 Constitutional: Yes: Calm Eyes: Yes: Conjunctiva Clear HENT: Yes: Atraumatic Cardiovascular: Yes: S1, S2 Respiratory: Yes: CTA Bilaterally, On Nasal O2 Gastrointestinal: Yes: Soft Genitourinary: Yes: WNL Musculoskeletal: Yes: Muscle Weakness Edema: No Neurological: Yes: Oriented Psychiatric: Yes: Oriented Labs: CBC, BMP 06/27/16 06:00 06/29/16 10:50 INR, PTT INR 1.05 (0.82-1.09) 06/25/16 05:35 Problem List - Problems (1) Acute renal failure Code(s): N17.9 - ACUTE KIDNEY FAILURE, UNSPECIFIED (2) CHF (congestive heart failure) Code(s): I50.9 - HEART FAILURE, UNSPECIFIED Qualifiers: Qualified Code(s): I50.33 - Acute on chronic diastolic (congestive) heart failure (3) Hypertension Code(s): I10 - ESSENTIAL (PRIMARY) HYPERTENSION Qualifiers: Qualified Code(s): I10 - Essential (primary) hypertension (4) Hypothyroidism Code(s): E03.9 - HYPOTHYROIDISM, UNSPECIFIED Qualifiers: Qualified Code(s): E03.9 - Hypothyroidism, unspecified (5) Shortness of breath Code(s): R06.02 - SHORTNESS OF BREATH (6) Chronic kidney disease (CKD) Code(s): N18.9 - CHRONIC KIDNEY DISEASE, UNSPECIFIED Assessment/Plan Current Medications Generic Name Dose Route Start Last Admin Trade Name Freq PRN Reason Stop Dose Admin Acetaminophen 650 mg 06/25/16 14:44 06/27/16 21:27 Tylenol - PO 650 mg Q6H PRN Administration FEVER OR PAIN Amlodipine Besylate 5 mg 06/25/16 22:00 06/29/16 14:05 Norvasc - PO 5 mg BID SHERITA Administration Aspirin 81 mg 06/26/16 10:00 06/29/16 14:07 Asa - PO 81 mg DAILY SHERITA Administration Atorvastatin Calcium 10 mg 06/25/16 22:00 06/28/16 23:00 Lipitor - PO 10 mg HS SHERITA Administration Carvedilol 25 mg 06/25/16 22:00 06/29/16 12:53 Coreg - PO 25 mg BID SHERITA Administration Docusate Sodium 100 mg 06/25/16 22:00 06/29/16 14:08 Colace - PO 100 mg TID SHERITA Administration Heparin Sodium (Porcine) 5,000 unit 06/25/16 22:00 06/29/16 14:06 Heparin - SQ 5,000 unit BID SHERITA Administration Hydralazine HCl 50 mg 06/25/16 22:00 06/29/16 14:08 Apresoline - PO 50 mg TID SHERITA Administration Isosorbide Mononitrate 30 mg 06/26/16 10:00 06/29/16 12:53 Imdur - PO 30 mg DAILY SHERITA Administration Levothyroxine Sodium 12.5 mcg 06/26/16 07:00 06/29/16 06:15 Synthroid - PO 12.5 mcg DAILY@0700 SHERITA Administration Ondansetron HCl 4 mg 06/25/16 14:44 Zofran Injection IVPB Q6H PRN NAUSEA Polyethylene Glycol 17 gm 06/28/16 10:00 06/29/16 14:06 Miralax (For Daily Use) - PO 17 gm BID SHERITA Administration Sertraline HCl 50 mg 06/25/16 22:00 06/28/16 23:00 Zoloft - PO 50 mg HS SHERITA Administration Sevelamer Carbonate 1,600 mg 06/27/16 13:29 06/29/16 12:51 Renvela - PO Not Given TIDCM SHERITA Torsemide 40 mg 06/26/16 10:00 06/29/16 14:06 Demadex - PO 40 mg DAILY SHERITA Administration Valsartan 80 mg 06/29/16 10:00 06/29/16 14:07 Diovan - PO 80 mg DAILY SHERITA Administration Impression 1. ESRD 2. SARAI 3. HTN 4. CHF 5. pleural effusion 6. hypothyroidism 7. hyperlipidemia 8. MVP Plan - HD today - pt has an HD spot at [facility] - discussed with cardio, can add diovan at low dose and titrate up - creatinine was high this morning - will need follow up with cardiology as outpt - can cont with demadex as she does still make urine - monitor BP - will need vascular access, this was discussed with pt and her family - renal diet Dr Hernandez
[2016-06-29 16:13] VITALS: BP 140/74; PULSE 70; TEMP 97.6
--- NOTE | 2016-06-30 17:35 | HOSP ---
Physical Examination Vital Signs: Vital Signs Temperature 97.6 F 06/29/16 16:09 Pulse Rate 70 06/29/16 16:09 Respiratory Rate 20 06/29/16 16:09 Blood Pressure 140/74 06/29/16 16:09 O2 Sat by Pulse Oximetry (%) 97 06/29/16 09:00 Labs: CBC, BMP 06/27/16 06:00 06/29/16 10:50 Hospitalist Encounter Assessment: Terry Tran call from [facility] stating the patient has declined services
== END 2016-06-29 18:21 | disposition home or self-care (01) | DRG 291 ==
LOC: JER 10:04 → JERBED 12:23 → J4W 18:09
PROVIDERS: ADMIT Internal Medicine; ATTEND Internal Medicine
PROC: 3E033GC Introduction of Other Therapeutic Substance into Peripheral Vein, Percutaneous Approach (ICD-10-PCS; 2016-06-25)
PROC: 5A1D60Z (ICD-10-PCS; 2016-06-25)
PROC: 02H633Z Insertion of Infusion Device into Right Atrium, Percutaneous Approach (ICD-10-PCS; principal; 2016-06-25 12:00)
DX: I13.0 Hypertensive heart and chronic kidney disease with heart failure and stage 1 through stage 4 chronic kidney disease, or unspecified chronic kidney disease (principal); I50.33 Acute on chronic diastolic (congestive) heart failure; N18.6 End stage renal disease; N17.9 Acute kidney failure, unspecified; I47.2 Ventricular tachycardia; I24.8 Other forms of acute ischemic heart disease; G91.8 Other hydrocephalus; E03.9 Hypothyroidism, unspecified; I16.0 Hypertensive urgency; E78.5 Hyperlipidemia, unspecified; I34.1 Nonrheumatic mitral (valve) prolapse; E87.8 Other disorders of electrolyte and fluid balance, not elsewhere classified; E87.5 Hyperkalemia; D63.8 Anemia in other chronic diseases classified elsewhere; I25.118 Atherosclerotic heart disease of native coronary artery with other forms of angina pectoris; Z88.0 Allergy status to penicillin; E83.39 Other disorders of phosphorus metabolism
CPT/HCPCS: 36415; 71010-TC; 76000-TC; 76775-TC; 76856-TC; 78452-TC; 80048; 80053; 80061; 81003; 82436; 82550; 82570; 83605; 83721; 83735; 83880; 84100; 84133; 84156; 84300; 84439; 84443; 84484; 84540; 85025; 85027; 85610; 85730; 86704; 86706; 86708; 86803; 87040; 87340; 93005; 93010; 93017; 94760; 97001-GP; 97116-GP; 99285-25; A9502; J0885; J1245; J1644

== ENCOUNTER 2016-12-29 10:27 | Emergency (ER) | payer OTHER, BC ==
[2016-12-29 10:41] VITALS: TEMP 98.2; BMI 20.5
[2016-12-29] MEDS ORDERED: ONDANSETRON *ODT* 4 MG TABLET SL ONE (11:28)
--- NOTE | 2016-12-29 11:29 | PDOC ---
History of Present Illness - General Chief Complaint: Blood Pressure Problem Stated Complaint: HTN,NAUSEA Time Seen by Provider: 12/29/16 10:42 - History of Present Illness Initial Comments: 12/29/16 13:28 Chief complaint: Nausea History of present illness: Patient experienced some mild nausea last night, which resolved. She was nauseated again this morning for a short period of time. This prevented her from taking her morning blood pressure medications. Her aide brought her in because she checked her pulse oximetry and it measured 50, even though there were no respiratory symptoms. She also checked her blood pressure, which she said was at age usual level for the day before dialysis, which is around 200/50. Review of systems: Patient denies headache, chest pain, shortness of breath, abdominal pain, vomiting, diarrhea, urinary tract symptoms, vaginal bleeding or discharge, or focal neurologic symptoms, unsteadiness of gait Past medical history: Renal failure, presumably secondary to hypertension, high blood pressure, hypothyroidism, mood disorder. Medications: Norvasc, Diovan, Coreg, Synthroid, Zoloft, baby aspirin, Renvela social history: Social history: No tobacco alcohol or drugs. No sedative hypnotics. 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 Family history: Reviewed and noncontributory including early coronary artery disease, metabolic disease including diabetes, neurologic disease, and cancer Physical exam: Alert, cheerful and cooperative, no acute distress, denies pain of any kind including headache, denies current nausea Afebrile, vital signs normal except for elevated blood pressure in the 200/60 range, which is reportedly normal for her on the days before dialysis. PERRLA, fundi benign, ENT clear Neck supple without bruit mass or nodes Chest clear CV regular without murmur rub or gallop Abdomen benign Neurological intact, including cranial nerves. Strength full and symmetric. No focal sensory or motor deficits. Gait stable and unimpaired Impression: Falsely low pulse oximetry at home, blood pressure elevated low- level prior to dialysis, intermittent mild nausea secondary to renal failure, stable. Did not take morning antihypertensives. Rule out electrolyte abnormality , especially hyperkalemia Plan: Zofran for nausea, if symptoms improved, administer usual hypertensive medication. Lab work and observation. Past History - Past Medical History Allergies/Adverse Reactions: Allergies Allergy/AdvReac Type Severity Reaction Status Date / Time Penicillins Allergy Unknown Verified 12/29/16 10:30 Home Medications: Ambulatory Orders Aspirin [ASA -] 81 mg PO WEEKLY 06/18/16 Sertraline HCl [Zoloft] 50 mg PO HS 06/18/16 Amlodipine Besylate [Norvasc -] 5 mg PO BID #60 tablet 06/29/16 Carvedilol [Coreg -] 25 mg PO BID #50 tablet 06/29/16 Levothyroxine [Synthroid -] 12.5 mcg PO DAILY@0700 #30 tablet 06/29/16 Sevelamer Carbonate [Renvela -] 1,600 mg PO TIDCM #60 tab 06/29/16 Valsartan [Diovan] 80 mg PO DAILY #30 tablet 06/29/16 Cardiac Disorders: Yes (mitral valve prolapse) Disorders: Yes (kidney failure) HTN: Yes Hypercholesterolemia: Yes Thyroid Disease: Yes (hypothyroid) - Surgical History Neurologic Surgery: (shunt in the brain 3.5 yesrs ago:not working now) - Psycho/Social/Smoking Cessation Hx Anxiety: No Suicidal Ideation: No Smoking History: Former smoker Have you smoked in the past 12 months: No If you are a former smoker, when did you quit?: around 50 years Information on smoking cessation initiated: No Hx Alcohol Use: No Drug/Substance Use Hx: No Substance Use Type: None Hx Substance Use Treatment: No *Physical Exam - Vital Signs Last Vital Signs Temp Pulse Resp BP Pulse Ox 98.2 F 64 20 210/63 98 12/29/16 10:29 12/29/16 10:29 12/29/16 10:29 12/29/16 10:29 12/29/16 10:29 ED Treatment Course - LABORATORY CBC & Chemistry Diagram: 12/29/16 11:36 12/29/16 11:36 Medical Decision Making - Medical Decision Making 12/29/16 12:33 Patient has been on dialysis for several months. Etiology of kidney failure is unknown, but probably due to hypertension. Pressure is usually in the 180-190 range systolic. She is due for dialysis tomorrow. She felt some mild nausea last night as well as this morning, without vomiting or diarrhea. She has no headache. She has no visual or focal neurologic symptoms. She was unable to take her blood pressure medication this morning due to nausea Zofran was administered sublingually, and nausea subsided, and she was able to take her regular morning blood pressure medication. Her pressure was monitored. 12/29/16 12:47 Sodium 129, Potassium is 4.6. BUN 38, creatinine 6.5. Mild anemia consistent with renal failure. No other significant abnormalities. Discharged in the company of her aide, no recurrent nausea, blood pressure at her usual level. Instructed to take her medications as directed and to be sure to attend her dialysis tomorrow. Return to ER if there are further symptoms. 12/29/16 13:26 *DC/Admit/Observation/Transfer Diagnosis at time of Disposition: Hypertension Qualifiers: Hypertension type: secondary to other renal disorders Qualified Code(s): I15.1 - Hypertension secondary to other renal disorders - Discharge Dispostion Disposition: HOME Condition at time of disposition: Improved Admit: No - Patient Instructions Printed Discharge Instructions: DI for High Blood Pressure Additional Instructions: Take your blood pressure medications as directed. Be sure to get dialyzed as scheduled tomorrow. Return to ER if any further symptoms develop for further evaluation
[2016-12-29] MEDS ORDERED: ONDANSETRON *ODT* 4 MG TABLET ONE (11:30)
[2016-12-29 12:00] LABS: ALK PHOS 80 U/L (32-92); ANION GAP 10 (8-16); BASOPHIL 0.7 % (0-2.0); BILIRUBIN,TOTAL 0.5 mg/dl (0.2-1.0); CALCIUM 8.5 mg/dl (8.4-10.2); CO2 22 mmol/L (22-28); CREATININE 6.5 mg/dl (0.6-1.3); EOSINOPHIL 1.1 % (0-4.5); GLUCOSE,RANDOM 103 mg/dl (74-106); MCH 30.4 pg (25.7-33.7); MCHC 32.6 g/dl (32.0-36.0); MEAN CELL VOLUME 93.2 fl (80-96); MEAN PLT VOLUME 8.3 fl (7.5-11.1); NEUTROPHILS 63.8 % (42.8-82.8); PLATELET COUNT 136 K/MM3 (134-434); RDW 18.4 % (11.6-15.6); SGOT/AST 15 U/L (10-42); TOT PROT 7.1 g/dl (6.4-8.3); WHITE BLOOD COUNT 6.6 K/mm3 (4.0-10.8)
[2016-12-29] MEDS ORDERED: VALSARTAN 80 MG TABLET (UD) PO ONE (12:15)
[2016-12-29] MEDS ORDERED: amLODIPine BESYLATE 5 MG TABLET (FP) PO ONE (12:16)
[2016-12-29] MEDS ORDERED: amLODIPine BESYLATE 5 MG TABLET (FP) ONE (12:18)
[2016-12-29 12:19] LABS: SGPT/ALT < 9 U/L (10-40)
[2016-12-29 13:08] VITALS: BP 205/51; PULSE 62
== END 2016-12-29 13:38 | disposition home or self-care (01) ==
LOC: FER 10:27
DX: I15.1 Hypertension secondary to other renal disorders (principal); E78.00 Pure hypercholesterolemia, unspecified; E03.9 Hypothyroidism, unspecified; I34.1 Nonrheumatic mitral (valve) prolapse; N19 Unspecified kidney failure
CPT/HCPCS: 36415; 80053; 85025; 99282-25